=== PATIENT | female | born 1965 | race Caucasian/White ===

== ENCOUNTER 2020-02-06 17:45 | Emergency (ER) | payer MEDICARE, MEDICAID, SELFPAY ==
--- NOTE | ~2020-02-06 | XR_ITS ---
XR lumbar spine 2-3V 02/06/2020 18:20 Indication: Low back pain Procedure: 3 views lumbar spine Comparison: No prior studies for comparison. Findings: There is posterior spinal fusion at L4-5 with prosthetic disc devices at L4-5 and L5-S1. Th ere is anterior spinal fusion at L5-S1. Vertebral body heights are maintained. There are cholecystect lopez clips. Pedicles are otherwise intact. Sacral foramen are symmetric. Impression: 1: Surgical fusion of L4-S1. No acute abnormality of the lumbar spine. Reviewed, dictated and finalized at location A. Impression: 1: Surgical fusion of L4-S1. No acute abnormality of the lumbar spine.
[2020-02-06 17:54] VITALS: BP 149/92; PULSE 81; RESP 20; TEMP 36.9; O2SAT 97
--- NOTE | 2020-02-06 17:55 | ED.BACK ---
HPI - Back Pain/Injury General Chief Complaint: Back Pain/Injury Stated Complaint: back and hip pain from fall Time Seen by Provider: 02/06/20 17:55 Source: patient and RN notes reviewed History of Present Illness HPI Narrative: Patient is a 54-year-old female who presents the urgent care with acute on chronic back pain. Patient had back surgery in August due to compression fractures at [facility] by Dr. Duffy. Patient states that whenever she has the acute on chronic back pain from a recent falls, he does x-rays in the office . Patient came to the facility today, legitimately begging for a Toradol shot. Patient states that she has limited NSAIDs at home and wants to save them until her refill is up on 13 February. Patient has not followed up with her surgeon regarding the recent tripping incidents. Patient states that she is tripped over her own feet and fell twice within the last week. Patient is ambulating without difficulty. No other acute complaints. Patient is tearful. Patient read the plan of care. Related Data Home Medications Medication Instructions Recorded Confirmed atenolol 50 mg PO DAILY 02/06/20 02/06/20 atorvastatin 20 mg PO DAILY 02/06/20 02/06/20 carbamazepine 200 mg PO DIRECTED 02/06/20 02/06/20 citalopram 20 mg PO DAILY 02/06/20 02/06/20 clonazepam 1 mg PO DIRECTED 02/06/20 02/06/20 desvenlafaxine succinate 50 mg PO DAILY 02/06/20 02/06/20 furosemide 20 mg PO DAILY 02/06/20 02/06/20 levothyroxine 175 mcg PO DAILY 02/06/20 02/06/20 lisinopril 20 mg PO DAILY 02/06/20 02/06/20 losartan 100 mg PO DAILY 02/06/20 02/06/20 naproxen 500 mg PO DAILY 02/06/20 02/06/20 prazosin 1 mg PO DAILY 02/06/20 02/06/20 suvorexant [Belsomra] 10 mg PO DIRECTED 02/06/20 02/06/20 Allergies Allergy/AdvReac Type Severity Reaction Status Date / Time meperidine Allergy Intermediate RASH Verified 03/23/18 19:59 acetaminophen Allergy Mild Verified 09/04/09 18:35 morphine Allergy Mild Verified 09/03/09 21:48 Penicillins Allergy Mild Verified 09/03/09 21:48 propoxyphene Allergy Mild Verified 09/04/09 18:35 Sulfa (Sulfonamide Allergy Mild Verified 09/03/09 21:48 Antibiotics) sulfamethoxazole Allergy Mild Verified 09/03/09 21:48 tetracycline Allergy Mild Verified 09/03/09 21:48 trimethoprim Allergy Mild Verified 09/03/09 21:48 Review of Systems Review of Systems: Narrative: CONSTITUTIONAL: Denies fever, chills, or sweats. EYES: Denies visual changes, redness, or discharge. ENT: Denies rhinorrhea, congestion, sore throat, or otalgia. CARDIOVASCULAR: Denies chest pain, palpitations, or edema. RESPIRATORY: Denies cough or dyspnea. GASTROINTESTINAL: Denies abdominal pain, nausea, vomiting, or diarrhea. GENITOURINARY: Denies dysuria or hematuria. SKIN: Denies rash or itching. MUSCULOSKELETAL: Reports of acute on chronic low back pain NEUROLOGIC: Denies headache, numbness, or weakness. All other systems reviewed are negative, except as documented in HPI. PMFSH Comments At the time of my signature, I reviewed and agree with the nursing past medical, surgical, social, and family history. There is no relevant family history pertinent to the patient complaint. Exam Narrative: Exam Narrative: GENERAL: This is a well-nourished, well-developed patient, in no apparent distress. HEAD: normocephalic, atraumatic. EYES: PERRL. Sclera clear/white. Vision is grossly intact. EARS: External ears normal NOSE: External nose normal with no obvious nasal discharge, nares without redness, no rhinorrhea. THROAT: Mucous membranes moist NECK: Neck supple SKIN: warm, intact with no suspicious lesions or rash, good texture and turgor. NEURO: awake, alert, and oriented to person, place and time. There were no obvious focal neurologic abnormalities. EXTREMITIES: No clubbing, cyanosis, or edema. BACK: Moderate diffuse lumbar tenderness extending into bilateral hips, worse than on the right. SLE not tested due to pain. Course Vit
[2020-02-06] MEDS: KETOROLAC (*BKC) 60 MG/2 ML VIAL 30 MG IM (18:35)
== END 2020-02-06 18:52 | disposition home or self-care (01) ==
PROVIDERS: Emergency Provider Nurse Practitioner Family; PCP Physician Assistant
DX: M54.5 Low back pain (principal); G89.29 Other chronic pain; Z86.73 Personal history of transient ischemic attack (TIA), and cerebral infarction without residual deficits; M19.90 Unspecified osteoarthritis, unspecified site
CPT/HCPCS: 72100; 96372; 99213; G0463; J1885

== ENCOUNTER 2021-05-30 15:41 | Emergency (ER) | payer OTHER, SELFPAY ==
--- NOTE | ~2021-05-30 | XR_ITS ---
EXAMINATION: XR chest 2V EXAM DATE: 05/30/2021 16:37 INDICATION: Cough for 2 weeks. TECHNIQUE: Frontal and lateral projections of the chest obtained and reviewed. Comparison is made to prior examination from 03/23/2018. FINDINGS: Previously seen right upper lobe airspace disease has resolved. Some scattered right lung granulomata. No confluent consolidation, pneumothorax or pleural effusion suspected. Cardiomediastina l silhouette is normal. There are cholecystectomy clips. There are no osseous abnormalities identifie d. IMPRESSION: No acute cardiopulmonary findings. Reviewed, dictated and finalized at location B. ESTATE UTILIZATION OFFICER
[2021-05-30 16:02] VITALS: BP 122/64; PULSE 88; RESP 22; TEMP 36.7; O2SAT 97
--- NOTE | 2021-05-30 16:31 | ED.URI ---
HPI - URI/Sore Throat General Chief Complaint: Upper Respiratory Infection Stated Complaint: Flu, R side near ribs hurt, cough. Time Seen by Provider: 05/30/21 16:17 Source: patient and RN notes reviewed Mode of arrival: ambulatory Limitations: no limitations History of Present Illness HPI Narrative: Patient presents today complaining of an almost 2-week history of nonproductive cough with sore throat and mild shortness of breath. Denies congestion, rhinorrhea, fever. She has been vaccinated against COVID-19. History of COPD. She has been taking Tylenol Cold and flu, Robitussin-DM, Mucinex lozenges without much relief. MD elicited complaint: cough and sore throat Related Data Home Medications Medication Instructions Recorded Confirmed atenolol 50 mg PO DAILY 02/06/20 05/30/21 carbamazepine 200 mg PO DIRECTED 02/06/20 05/30/21 citalopram 20 mg PO DAILY 02/06/20 05/30/21 clonazepam 1 mg PO DIRECTED 02/06/20 05/30/21 desvenlafaxine succinate 50 mg PO DAILY 02/06/20 05/30/21 furosemide 20 mg PO DAILY 02/06/20 05/30/21 levothyroxine 175 mcg PO DAILY 02/06/20 05/30/21 lisinopril 20 mg PO DAILY 02/06/20 05/30/21 losartan 100 mg PO DAILY 02/06/20 05/30/21 naproxen 500 mg PO BID 02/06/20 05/30/21 cariprazine [Vraylar] 1 mg PO DAILY 05/30/21 05/30/21 hydrocodone-acetaminophen See Rx Instructions .ROUTE 05/30/21 05/30/21 .COMPLEX PRN Allergies Allergy/AdvReac Type Severity Reaction Status Date / Time aspirin Allergy Unknown Verified 05/30/21 16:25 meperidine [From Demerol] Allergy Unknown Verified 05/30/21 16:21 morphine Allergy Unknown Verified 05/30/21 16:22 Penicillins Allergy Unknown Verified 05/30/21 16:22 propoxyphene Allergy Unknown Verified 05/30/21 16:24 Sulfa (Sulfonamide Allergy Unknown Verified 05/30/21 16:23 Antibiotics) sulfamethoxazole Allergy Unknown Verified 05/30/21 16:25 [From Septra] Tetracyclines Allergy Unknown Verified 05/30/21 16:23 trimethoprim [From Marra] Allergy Unknown Verified 05/30/21 16:25 Review of Systems Review of Systems: CONSTITUTIONAL: Denies body aches, fever, chills, or sweats. EYES: Denies visual changes, redness, or discharge. ENT: Denies rhinorrhea, congestion, or otalgia.+ Sore throat CARDIOVASCULAR: Denies chest pain, palpitations, or edema. RESPIRATORY: + Sore throat, shortness of breath GASTROINTESTINAL: Denies abdominal pain, nausea, vomiting, or diarrhea. GENITOURINARY: Denies dysuria or hematuria. SKIN: Denies rash, itching, or wounds. MUSCULOSKELETAL: Denies back pain, joint pain, or myalgia. NEUROLOGIC: Denies headache, numbness, tingling, or weakness. PSYCH: Denies depression or anxiety. [facility] Past Medical History Medical History (Updated 05/30/21 @ 17:04 by Archana De Leon, CLAY STAIN MIXER, ) Anxiety Bipolar disorder Brain tumor COPD (chronic obstructive pulmonary disease) Depression High cholesterol History of breast cancer Hypertension Seizures Tachycardia Surgical History Surgical History (Updated 05/30/21 @ 16:34 by Archana De Leon, CLAY STAIN MIXER, ) Previous back surgery Comments At time of signature, I have reviewed and agree with nursing past medical, surgical, social and family history unless otherwise noted. Please see nursing chart for further information. There is no relevant family history pertinent to the presenting complaint Exam Narrative: GENERAL: chronically ill-appearing, well-nourished, and in no acute distress. HEAD: Normocephalic, atraumatic. EYES: EOMI. No redness or drainage. Conjunctivae normal. ENT: Mucous membranes pink and moist. Nares clear. No rhinorrhea. TMs normal bilaterally. Throat normal. Uvula midline. NECK: Normal AROM. Supple. No lymphadenopathy. CHEST: No respiratory distress. End inspiratory wheeze throughout. HEART: Regular rate and rhythm. No murmur appreciated. Normal peripheral pulses. EXTREMITIES: Normal range of motion. No edema. SKIN: Warm, dry, no rash. Capillary refill normal. Norm
== END 2021-05-30 17:10 | disposition home or self-care (01) ==
PROVIDERS: Emergency Provider Nurse Practitioner; PCP Physician Assistant
DX: J44.1 Chronic obstructive pulmonary disease with (acute) exacerbation (principal); E78.00 Pure hypercholesterolemia, unspecified; I10 Essential (primary) hypertension; Z85.3 Personal history of malignant neoplasm of breast; F41.9 Anxiety disorder, unspecified; F32.A Depression, unspecified; G40.909 Epilepsy, unspecified, not intractable, without status epilepticus
CPT/HCPCS: 71046; 99213; G0463

== ENCOUNTER 2024-09-19 11:14 | Emergency (ER) | payer OTHER, SELFPAY ==
[2024-09-19 11:28] VITALS: BP 102/78; PULSE 69; RESP 18; TEMP 36.5; O2SAT 97
--- NOTE | 2024-09-19 11:39 | ED_ITS ---
HPI - Wound/Laceration General Chief Complaint: Burn/Smoke Inhalation Stated Complaint: Left Arm Burn Time Seen by Provider: 09/19/24 11:39 Source: patient, RN notes reviewed and old records reviewed Mode of arrival: ambulatory Limitations: no limitations History of Present Illness HPI narrative: 58 year old female presents to [facility] care with complaints of burn to her left forearm which occurred last night when grease from [place] splattered onto her left forearm. Patient reports that she initially put mustard on it and ten washed it off and then applied cold water and has been using cold compresses. Patient has burn to the top and bottom of her left forearm with skin red and some areas of fluid filled blistering. Patient reports that she has taken some Ibuprofen for her discomfort with minimal decrease in pain. Onset (ago): day(s) (last night) Location: other (left forearm) Place: home Patient tetanus UTD: Yes Treatments prior to arrival: cold therapy and other (cold water, ibuprofen) Related Data Home Medications ?Medication ?Instructions ?Recorded ?Confirmed ?Last Taken ?Type carbamazepine 200 mg tablet 200 mg PO DIRECTED 02/06/20 09/19/24 Unknown History clonazepam 1 mg tablet 1 mg PO DIRECTED 02/06/20 09/19/24 Unknown History desvenlafaxine succinate 50 mg 50 mg PO DAILY 02/06/20 09/19/24 Unknown History tablet,extended release 24 hr furosemide 20 mg tablet 20 mg PO DAILY 02/06/20 09/19/24 Unknown History levothyroxine 175 mcg tablet 175 mcg PO DAILY 02/06/20 09/19/24 Unknown History lisinopril 20 mg tablet 20 mg PO DAILY 02/06/20 09/19/24 Unknown History losartan 100 mg tablet 100 mg PO DAILY 02/06/20 09/19/24 Unknown History naproxen 500 mg tablet 500 mg PO BID 02/06/20 05/30/21 Unknown History hydrocodone 10 mg-acetaminophen See Rx Instructions .Route 05/30/21 09/19/24 Unknown History 325 mg tablet .COMPLEX PRN Pain albuterol sulfate 90 mcg/actuation inhalation 09/19/24 Unknown History aerosol inhaler amlodipine 5 mg tablet mg 09/19/24 Unknown History atorvastatin 40 mg tablet mg 09/19/24 Unknown History carisoprodol 350 mg tablet mg 09/19/24 Unknown History dicyclomine 10 mg capsule mg 09/19/24 Unknown History fluticasone fur. 100 mcg-umeclid inhalation 09/19/24 Unknown History 62.5 mcg-vilant 25 mcg inhalat.powder (Trelegy Ellipta) ibuprofen 800 mg tablet mg 09/19/24 Unknown History mirtazapine 15 mg tablet mg 09/19/24 Unknown History ondansetron HCl 8 mg tablet mg 09/19/24 Unknown History propranolol 20 mg tablet mg 09/19/24 Unknown History Allergies Allergy/AdvReac Type Severity Reaction Status Date / Time aspirin Allergy Intermediate bleeding Verified 09/19/24 12:04 meperidine (From Demerol) Allergy Unknown Verified 09/19/24 11:42 morphine Allergy Unknown Verified 09/19/24 11:42 Penicillins Allergy Unknown Verified 09/19/24 11:42 propoxyphene Allergy Unknown Verified 09/19/24 11:42 Sulfa (Sulfonamide Allergy Unknown Verified 09/19/24 11:42 Antibiotics) sulfamethoxazole (From Allergy Unknown Verified 09/19/24 11:42 Septra) Tetracyclines Allergy Unknown Verified 09/19/24 11:42 trimethoprim (From Septra) Allergy Unknown Verified 09/19/24 11:42 Review of Systems Review of Systems: CONSTITUTIONAL: Denies fever, chills, or sweats. EYES: Denies visual changes, redness, or discharge. ENT: Denies rhinorrhea, congestion, sore throat, or otalgia. CARDIOVASCULAR: Denies chest pain, palpitations, or edema. RESPIRATORY: Denies cough or dyspnea. GASTROINTESTINAL: Denies abdominal pain, nausea, vomiting, or diarrhea. GENITOURINARY: Denies dysuria or hematuria. SKIN: Positive for 2nd degree reyes to left forearm which occurred last night from splattering of [place] grease. MUSCULOSKELETAL: Denies back pain, joint pain, or myalgia. NEUROLOGIC: Denies headache, numbness, or weakness. PSYCHIATRIC: Reports history of anxiety or depression. All systems reviewed & are unremarkable except as noted in HPI and below PMFSH Past Medical History Medical History (Updated 09/21/24 @ 08:03 by Patricia Bella NP) History of breast cancer Tachycardia Depression Anxiety High cholesterol Brain tumor Seizures Bipolar disorder Hypertension COPD (chronic obstructive pulmonary disease) Surgical History Surgical History (Updated 09/21/24 @ 07:53 by Patricia Bella NP) H/O brain surgery remove tumor Previous back surgery Social History Social History (Updated 09/20/24 @ 23:09 by Patricia Bella NP) Smoking status: Current every day smoker Tobacco type: cigarettes Living arrangements: with family Gender identity (if verbalized by the patient): Female Comments At time of signature, agree with nursing past medical, surgical, social and family history. There is no relevant family history pertinent to the presenting complaint Exam Narrative: GENERAL: Well-appearing, well-nourished, and in some acute distress related to pain. HEAD: Normocephalic, atraumatic. EYES: PERRLA and EOMI. ENT: Nares clear, no rhinorrhea or epistaxis. Mucous membranes moist.TM's normal with good light reflex, throat pink with no swelling NECK: Supple. no lymphadenopathy CHEST: Clear to auscultation. No respiratory distress.SAO2 97% on room air HEART: Regular rate and rhythm. No murmur heard. Normal peripheral pulses. ABDOMEN: Soft, nontender, nondistended, normal active bowel sounds. EXTREMITIES: Normal range of motion. No edema. SKIN: Warm, dry, burn to top of forearm area measuring 2cm X 10cm red with some areas of fluid and 4cm X 10cm area to inner forearm red with some fluid filled areas. painful no weeping or eschar noted, strong pulses present to left arm. wound cleansed by nursing staff and triple antibiotic ointment Telfa and rolled gauze applied around forearm. Reviewed home care with patient for daily wound c leansing and application of bacitracin ointment, telfa and rolled gauze dressing and follow up with PCP for wound evaluation. NEURO: No focal deficits. Alert and oriented x3. very anxious Course Course Emergency Course: Patient is aware of diagnosis, understands and agrees to treatment plan.? Anticipatory guidance given.? Patient agrees to follow-up as directed and is aware of reasons to seek care at the emergency department. Portions of this record may have been created with voice recognition software Level of Care: Express Care Visit Vital Signs Vital signs: Vital Signs Temperature 36.5 C 09/19/24 11:28 Pulse Rate 69 09/19/24 11:28 Respiratory Rate 18 09/19/24 11:28 Blood Pressure 102/78 09/19/24 11:28 Pulse Oximetry 97 09/19/24 11:28 Oxygen Delivery Room Air 09/19/24 11:28 Temperature 36.5 C 09/19/24 11:28 Pulse Rate 69 09/19/24 11:28 Respiratory Rate 18 09/19/24 11:28 Blood Pressure 102/78 09/19/24 11:28 Pulse Oximetry 97 09/19/24 11:28 Oxygen Delivery Room Air 09/19/24 11:28 Reviewed MDM - Wound/Laceration Differential Diagnosis Differential diagnosis: Likely other (2nd degree reyes to left forearm, pain to burn areas left forearm, wound care and evaluation) Medical Records Attestation: I reviewed the patient's medical records. Critical Care Time Critical Care Time Critical Care Time: No Discharge Plan Discharge Clinical Impression: Burn of forearm, left, second degree Qualifiers: Encounter type: initial encounter Qualified Code(s): T22.212A - Burn of second degree of left forearm, initial encounter Patient Disposition: Home, Self-Care Condition: Stable Instructions: Antibiotic Form, Second-Degree Burn (ED) Additional Instructions: Cleanse left forearm daily with warm soapy water rinse well pat dry apply bacitracin ointment, Telfa, and wrap with gauze watch for increasing infection--redness, swelling, drainage Keflex 500 mg 3 times daily x7 days follow up with PCP in 5-7 days for a wound check recheck if develop fever, chills, increasing symptom Go to the ER if your symptoms become worse of if ANY new symptoms develop Tylenol or ibuprofen for fever pain Hydrocodone (10 tabs) one every 8 hours use sparingly for acute discomfort If your symptoms persist, change or worsen significantly before you can contact your personal physician then please, without delay, go to the emergency department for further evaluation. Follow-up with PCP in 7-10 days or sooner if needed Patient Language: Comoran Prescriptions: New cephalexin 500 mg capsule 500 mg PO Q8H Qty: 21 0RF bacitracin 500 unit/gram ointment 1 applic topical DAILY Qty: 28 1RF Rx Instructions: apply to burn area daily hydrocodone-acetaminophen 7.5-325 mg tablet 1 tablet PO Q8H PRN (Reason: pain) Qty: 10 0RF naloxone [Narcan] 4 mg/actuation spray,non-aerosol 1 spray intranasal Q3M Qty: 1 0RF Rx Instructions: spray 1 dose into ONE nostril; alternate nostrils w each dose until help arrives No Action levothyroxine 175 mcg tablet 175 mcg PO DAILY lisinopril 20 mg tablet 20 mg PO DAILY clonazepam 1 mg tablet 1 mg PO DIRECTED carbamazepine 200 mg tablet 200 mg PO DIRECTED furosemide 20 mg tablet 20 mg PO DAILY losartan 100 mg tablet 100 mg PO DAILY naproxen 500 mg tablet 500 mg PO BID desvenlafaxine succinate 50 mg tablet extended release 24 hr 50 mg PO DAILY hydrocodone-acetaminophen 10-325 mg tablet See Rx Instructions .ROUTE .COMPLEX PRN (Reason: Pain) Rx Instructions: as prescribed albuterol sulfate 2.5 mg /3 mL (0.083 %) solution for nebulization 2.5 mg inhalation Q4-6H PRN (Reason: shortness of breath or wheezing) Qty: 90 0RF carisoprodol 350 mg tablet atorvastatin 40 mg tablet ibuprofen 800 mg tablet ondansetron HCl 8 mg tablet amlodipine 5 mg tablet mirtazapine 15 mg tablet albuterol sulfate 90 mcg/actuation HFA aerosol inhaler INHALATION propranolol 20 mg tablet dicyclomine 10 mg capsule Trelegy Ellipta 100-62.5-25 mcg blister with device INHALATION Follow-up/Referrals: Jose D,MD Stephen [Primary Care Provider] - Time of Disposition: 12:27 Quality Yenni Coma Scale Eyes: Open Verbal: Oriented and Alert Motor: Follows Commands Eynni Coma Total Score: 15
--- OUTSIDE RECORDS SUMMARY | 2024-09-19 13:01 | XMS_ITS | Encounter Summary ---
Author Organization [facility] Healthcare Address [address] [place] [address] Care Team Providers Care Staking Engineer Name Role Phone Dmitry Duffy MD Unavailable [phone] Stephen Jeffery MD Primary Care Provider [phone] Tati Child MD Unavailable [phone] Reason for Visit * Auth/Cert (Routine) Specialty Diagnoses / Procedures Referred By Contac t Referred To Contact Diagnoses Personal history of colonic polyps Encounter for screening colonoscopy Personal history of colonic polyps [Z86.010] Encounter for screening colonoscopy [Z12.11] Procedures LA COLONOSCOPY FLX DX W/COLLJ SPEC WHEN PFRMD COLONOSCOPY Referral ID Status Reason Start Date Expiration Date Visits Re quested Visits Authorized [id number] 1 1 Encounter Details Date Type Department Care Team (Late st Contact Info) Description 07/26/2024 Hospital Encounter [facility] [address] [place] [address] Flakita Downs MD [address] [place] [address] [address] Social History Tobacco Use Types Packs/Day Years Used Date Smoking Tobacco: Every Day Cigarettes Smokeless Tobacco: Never Alcohol Use Standard Drinks/Week Comments No 0 (1 standard drink = 0.6 oz pur e alcohol) Humiliation, Afraid, Rape, and Kick questionnair e Answer Date Recorded Within the last year, have y ou been afraid of your partner or ex-partner? No 02/19/2023 Within the last year, have y ou been humiliated or emotionally abused in other ways by your partner or ex-partner? No Within the last year, have y ou been kicked, hit, slapped, or otherwise physically hurt by your partner or ex-partner? No 02/19/2023 Within the last year, have y ou been raped or forced to have any kind of sexual activity by your partner or ex-partner? No 02/19/2023 Social Connection and Isolat ion Panel [NHANES] Answer Date Recorded In a typical week, how many times do you talk on the phone with family, friends, or neighbors? More than three times a week 02/19/2023 How often do you get togethe r with friends or relatives? More than three times a week 02/19/2023 How often do you attend chur or lutheran services? Never 02/19/2023 Do you belong to any clubs o r organizations such as amish groups, unions, fraternal or athletic groups, or school groups? No 02/19/2023 How often do you attend meet ings of the clubs or organizations you belong to? Never 02/19/2023 Are you , , di vorced, , never , or living with a partner? 02/19/2023 AUDIT-C Answer Date Recorded Q1: How often do you have a drink containing alcohol? Never 02/19/2023 Q2: How many drinks containi ng alcohol do you have on a typical day when you are drinking? Patient does not drink Q3: How often do you have si x or more drinks on one occasion? Never 02/19/2023 Overall Financial Resource Strain (CARDIA) Answe r Date Recorded How hard is it for you to pa y for the very basics like food, housing, medical care, and heating? Somewhat hard 02/19/2023 PHQ-2 Answer Date Recorded PHQ-2 Total Score (If total score is 3 or more points, staff should administer the PHQ-9) 0 10/13/2023 [facility] - Occupational Stress Questionnaire Answer Date Recorded Do you feel stress - tense, restless, nervous, or anxious, or unable to sleep at night because your mind is troubled all the time - these days? Rather much 02/19/2023 Exercise Vital Sign Answer Date Recorde d On average, how many days pe r week do you engage in moderate to strenuous exercise (like a brisk walk)? 7 days 02/19/2023 On average, how many minutes do you engage in exercise at this level? 90 min 02/19/2023 Hunger Vital Sign Answer Date Recorded Within the past 12 months, y ou worried that your food would run out before you got the money to buy more. Never true 02/20/20 23 Within the past 12 months, t he food you bought just didn't last and you didn't have money to get more. Never true 02/19/2023 PRAPARE - Transportation Answer Date Re corded In the past 12 months, has l ack of transportation kept you from medical appointments or from getting medications? No 02/09 In the past 12 months, has l ack of transportation kept you from meetings, work, or from getting things needed for daily living? No 02/19/2023 Housing Stability Vital Sign Answer Ernie e Recorded In the last 12 months, was t here a time when you were not able to pay the mortgage or rent on time? No 02/19/2023 In the last 12 months, how many places have you lived? 1 02/19/2023 In the last 12 months, was t here a time when you did not have a steady place to sleep or slept in a group home (including now)? No 02/19/2023 Personal Safety Answer Date Recorded Have you ever been in or are you currently in a harmful physical or emotional relationship or is someone making you feel afraid or unsafe? Denies 11/20/2023 Comments No Sex and Gender Information Value Date Recorded Sex Assigned at Not on file Legal Sex Female 7:07 AM FOOT ROENTGENOLOGIST Gender Identity Female 07/02/2020 2:31 PM FOOT ROENTGENOLOGIST Sexual Orientation Not on file documented as of this encounter Plan of Treatment Not on file documented as of this encounter Goals Goal Patient Goal Type Associated Problems Recent Progress Patient-Stated? Author [facility] On track( 021 1:17 PM FOOT ROENTGENOLOGIST) No Tracy Roblero, RN Note: Patient will establish a comfort-function goal and identify the pain level that will allow the patient to perform desired activities and achieve an acceptable quality of life. documented as of this encounter Visit Diagnoses Diagnosis Personal history of colonic polyps Encounter for screening colonoscopy documented in this encounter Admitting Diagnoses Diagnosis Personal history of colonic polyps Encounter for screening colonoscopy documented in this encounter Care Teams Staking Engineer Relationship Specialty Start Date End Date Stephen Jeffery MD [address] [place] [address] PCP - General Family Medicine 02/19/23 [place] [id number] [address] Surgeon Orthopedic Surgery 08/30/19 Tati Child MD [address] [place] [address] DR JACOBSON [address] [place] [id number] Consulting Physician Obstetrics and Gynecology 09/12/24 documented as of this encounter
--- OUTSIDE RECORDS SUMMARY | 2024-09-19 13:01 | XMS_ITS | Patient Health Summary ---
Author Organization [facility] Address [address] [place] [address] Care Team Providers Care Sheriffs Officer Name Role Phone Wallace Lawson Primary Care Provider [phone] Note from [facility],non-owned Affiliates and Associated Physician Practices is amultiple site organization consisting of ambulatory clinics and hospital sitesin [place], [place], [place] and [place]. This disclosure is being madepursuant to the Care Everywhere program and may not contain all information available regarding this patient. Last updated 18.[employer] [facility] Medications Be aware that medications may not be up to date on this document. Always verify current medications with the patient. No known medications Active Problems No known active problems Social History Tobacco Use Types Packs/Day Years Used Date Smoking Tobacco: Never Assessed Sex and Gender Information Value Date Recorded Sex Assigned at Not on file Gender Identity Not on file Sexual Orientation Not on file Last Filed Vital Signs Vital Sign Reading Time Taken Comments Blood Pressure - - Pulse - - Temperature - - Respiratory Rate - - Oxygen Saturation - - Inhaled Oxygen Concentration - - Weight 127 kg (280 lb) 09/18/2022 2:35 PM INFORMATION SYSTEMS SECURITY DEVELOPER Height 166.4 cm (5' 5.5 ) 09/18/2022 2:35 PM INFORMATION SYSTEMS SECURITY DEVELOPER Body Mass Index 45.89 09/18/2022 2:35 PM INFORMATION SYSTEMS SECURITY DEVELOPER Procedures * XR LUMBAR SP FLEX EXT 2 OR 3VW(Performed 09/18/2022) Performed for Back pain, unspecified back location, unspecified back pain laterality, unspecified chronicity Results * XR LUMBAR SP FLEX EXT 2 OR 3VW (09/18/2022 2:09 PM INFORMATION SYSTEMS SECURITY DEVELOPER) Anatomical Region Laterality Modality Spine Radiographic Jessica ging 09/18/2022 2:19 PM INFORMATION SYSTEMS SECURITY DEVELOPER Impressions 09/18/2022 2:41 PM INFORMATION SYSTEMS SECURITY DEVELOPER IMPRESSION: Instrumented spinal fusion. Report dictated by Mamadou Pitts MD, PhD (co founder and president). I, Tim De Souza MD have personally reviewed and interpreted this examination/study. > Interpreting Provider: Tim De Souza MD on 09/18/2022 2:41 PM Narrative 09/18/2022 2:41 PM INFORMATION SYSTEMS SECURITY DEVELOPER PROCEDURE: XR LUMBAR SP FLEX EXT 2 OR 3VW, DATE/TIME OF EXAM: 09/18/2022 2:09 PM, LOCATION [facility] INDICATION: M54.9: Back pain, unspecified back location, unspecified back pain laterality, unspecified chronicity ADDITIONAL CLINICAL INFORMATION: Ordering Provider Reason For Exam: back pain COMPARISON: None. FINDINGS: Instrumented spinal fusion is demonstrated including posterior rods, screws, and an interbody device at L4-5 and an anterior plate, screws, and interbody device at L5-S1. The L5 screws associated with the anterior plate are broken. Radiodense material is seen at the anterior aspect of the L4-5 disc space which may represent calcification, an ossific fragment, or cement. There is no subluxation with flexion or extension. Clips are seen in the abdomen. Procedure Note Tim De Souza MD - 09/18/2022 PROCEDURE: XR LUMBAR SP FLEX EXT 2 OR 3VW, DATE/TIME OF EXAM:09/18/2022 2:09 PM, LOCATION [facility] INDICATION: M54.9: Back pain, unspecified back location, unspecified back pain laterality, unspecified chronicity ADDITIONAL CLINICAL INFORMATION: Ordering Provider Reason For Exam: back pain COMPARISON: None. FINDINGS: Instrumented spinal fusion is demonstrated including posterior rods, screws, and an interbody device at L4-5 and an anterior plate, screws,and interbody device at L5-S1. The L5 screws associated with the anteriorplate are broken. Radiodense material is seen at the anterior aspect of theL4-5 disc space which may represent calcification, an ossific fragment, or cement. There is no subluxation with flexion or extension. Clips areseen in the abdomen. IMPRESSION: Instrumented spinal fusion. Report dictated by Mamadou Pitts MD, PhD (co founder and president). I, Tim De Souza MD have personally reviewed and interpreted this examination/study. > Interpreting Provider: Tim De Souza MD on 09/18/2022 2:41 PM Jeniffer Mchugh MD DIAGNOSTIC IMAGING ORDERABLES Care Teams Sheriffs Officer Relationship Specialty Start Date End Date Wallace Lawson PA [address] [place] [address] PCP - General 07/06/19
--- OUTSIDE RECORDS SUMMARY | 2024-09-19 13:01 | XMS_ITS | Referral Summary ---
Author Organization [facility] Address [address] [place] [address] Care Team Providers Care Metal Buffer Name Role Phone Dmitry Duffy MD Unavailable [phone] Stephen Jeffery MD Primary Care Provider [phone] Tati Child MD Unavailable [phone] Encounters Date Type Department Care Team Description 09/11/2024 Telephone [facility] [address] [place] [address] Stephen Jeffery MD Forms Request 09/07/2024 4:00 PM POLICE SURGEON Office Visit [address] [place] [address] Tati Child MD 08/02/2024 10:15 AM POLICE SURGEON Office Visit [facility] [address] [address] Stephen Jeffery MD Immunization due (Primary Dx); Nonintractable epilepsy without status epilepticus, unspecified epilepsy type (HCC); Chronic obstructive pulmonary disease, unspecified COPD type (HCC); Anxiety with depression; Primary hypertension 07/26/2024 Hospital Encounter [facility] [address] [place] [address] Flakita Downs MD 07/25/2024 Telephone [facility] Gastroenterology at [address] [place] [address] Danay Nelson MA 07/25/2024 Documentation [facility] G[facility]ology at [place] [address] [facility] [address] [place] [address] Danay Nelson MA 07/19/2024 10:00 AM POLICE SURGEON Ancillary Procedure [place] [facility] [address] [facility] [address] [place] [phone] Cervical mass 07/18/2024 Nurse Triage [facility] [address] [place] [phone] Stephen Jeffery MD 07/06/2024 Telephone [place] [facility] [address] [facility] [address] [place] [phone] Wendie Zhang NP Pelvic U/S from Last 3 Months Allergies Active Allergy Reactions Criticality Noted Date Comments Acetaminophen Angioedema High 11/23/2012 tongue,throat swelling Aspirin Other (See comments),Unknown High 10/10/2016 Nose bleeds Takes excedrin for headaches at home (APAP+ASA+caffeine ) 08/24/19 Ciprofloxacin Itching,Redness Low 11/11/2021 Codeine Other (See comments) Low 02/19/2020 SUBSTERNAL PAIN Hydroxyzine Dizziness Low 02/29/2024 Lurasidone Other (See comments) Low 11/11/2021 Meperidine Mirtazapine Other (See comments) Low 03/08/2024 involuntary body movements, weird dreams, dry mouth, hives and very hungry Morphine Snyder Flavor Unknown 08/24/2019 Oxycodone Stomach upset High 11/23/2012 Stomach/GI Upset Penicillins Anaphylaxis High Propoxyphene Angioedema High 11/23/2012 tongue,throat swelling Propoxyphene N-Acetaminophen Unknown 11/20/2014 Quetiapine Hallucinations,Othe r (See comments) High 01/17/2019 Sleep walk and moves things around in her sleep. And said she also tried to go out a window while asleep. Sulfa (Sulfonamide Antibiotics) Rash Medium 11/23/2012 Rash Sulfamethoxazole Sulfamethoxazole-Trimetho prim Tetracycline Topiramate Dizziness Low 08/24/2019 Trimethoprim Ubrogepant Itching,Nausea & Vomiting Low 05/02/2024 Bupropion Other (See comments) Low 05/02/2024 Pt reports seizures per pharmacist Medications desvenlafaxin e ER 50 mg 24 hr tablet Take 1 tablet (50 mg total) by mouth daily 90 tablet 3 08/11/19 24 Active atorvastatin (LIPITOR) 40 mg tablet TAKE 1 TABLET BY MOUTH EVERY DAY 90 tablet 3 11/08/19 24 Active carBAMazepine (TEGretol) 200 mg tablet Take 2 tablets (400 mg total) by mouth nightly AND 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 BEFORE BREAKFAST 90 tablet 3 04/21/20 24 025 Active dicyclomine (BENTYL) 10 mg capsule TAKE 1 CAPSULE BY MOUTH 3 TIMES A DAY BEFORE MEALS 270 capsule 3 07/18/19 25 Active lisinopriL (PRINIVIL,ZES TRIL) 20 mg tablet Take 1 tablet (20 mg total) by mouth daily 30 tablet 2 07/18/19 25 026 Active propranoloL (INDERAL) 20 mg tablet Take 1 tablet (20 mg total) by mouth 2 (two) times a day 180 tablet 4 07/18/19 25 026 Active ondansetron (ZOFRAN) 8 mg tablet Take 1 tablet (8 mg total) by mouth every 8 (eight) hours as needed for nausea or vomiting 60 tablet 1 08/02/19 25 Active aspirin 81 mg enteric coated tablet Take 1 tablet (81 mg total) by mouth daily Active furosemide (LASIX) 20 mg tablet TAKE 1 TABLET (20 MG TOTAL) BY MOUTH NEEDED (EDEMA) 90 tablet 3 09/12/19 25 026 Active ibuprofen (ADVIL,MOTRIN ) 800 mg tablet Take 1 tablet (800 mg total) by mouth 3 (three) times a day 180 tablet 09/19/19 25 Active clonazePAM (KlonoPIN) 1 mg tablet Take 1 tablet (1 mg total) by mouth 4 (four) times a day 120 tablet 09/23/19 25 Active carisoprodoL (SOMA) 350 mg tablet TAKE 1 TABLET BY MOUTH 3 TIMES A DAY NEEDED FOR MUSCLE SPASMS 90 tablet 10/02/19 25 Active furosemide (LASIX) 20 mg tablet Take 1 tablet (20 mg total) by mouth as needed (edema) 90 tablet 3 07/14/19 24 025 Discontinued clonazePAM (KlonoPIN) 1 mg tablet TAKE 1 TABLET BY MOUTH 4 TIMES A DAY. 120 tablet 07/24/19 25 025 Discontinued carisoprodoL (SOMA) 350 mg tablet Take 1 tablet (350 mg total) by mouth 3 (three) times a day as needed for muscle spasms 90 tablet 08/02/19 25 025 Discontinued ibuprofen (ADVIL,MOTRIN ) 800 mg tablet Take 1 tablet (800 mg total) by mouth 3 (three) times a day 180 tablet 08/02/19 25 025 Discontinued(Re order) clonazePAM (KlonoPIN) 1 mg tablet Take 1 tablet (1 mg total) by mouth 4 (four) times a day 120 tablet 08/23/19 25 025 Discontinued(Re order) carisoprodoL (SOMA) 350 mg tablet TAKE 1 TABLET BY MOUTH 3 TIMES A DAY NEEDED FOR MUSCLE SPASMS. 90 tablet 09/01/19 25 025 Discontinued(Re order) Active Problems Problem Noted Date Diagnosed Date History of CVA (cerebrovascular accident) 2023 Assessment & Plan (05/02/2024 4:15 PM CDT): Not well controlled; patient reports recently was taken to hospital for TIA; can not tolerate antiplatelets due to frequent nosebleeds Continue with tight lipid control; would recommend continued risk modification by reducing cigarette use Assessment & Plan (02/29/2024 12:00 PM CDT): Stable. Intolerance to ASA. Plan: Continue lipitor 40mg qhs Continue Atenolol 50 daily Recommend smoking cessation Grief 02/29/2024 Assessment & Plan (02/29/2024 12:19 PM CDT): 2/2 loss of spouse after prolonged illness. Concern about social isolation and over medicating. Plan: Provided grief support resources. Recommend reestablish with therapist F/u 2 months Personal history of colonic polyps 10/27/2023 Encounter for screening colonoscopy 10/27/2023 Depression, unspecified 08/08/2022 Assessment & Plan (01/25/2024 2:25 PM CDT): Patient has adjustment disorder and acute worsening anxiety and depression secondary to recent passing Passive unexpectedly Patient is appropriately tearful, continues to focus significantly on passing Has multiple stressors including doing with extended family Continue Pristiq 50 mg daily, increase clonazepam to 2 mg t.i.d.; will continue to monitor and adjust dose when able 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 LACIE (acute kidney injury) 08/04/2022 Crohn's disease, unspecified, without complicati ons 08/01/2022 Assessment & Plan (05/02/2024 4:14 PM CDT): Not well controlled; patient reports continued episodes of diarrhea; has been having continuous weight loss; may be secondary to malabsorption given continued diarrhea Would recommend follow up with GI for evaluation to determine if patient would benefit from anti-inflammatory Personal history of malignant neoplasm of breast 08/01/2022 Nicotine dependence, unspecified, uncomplicated 08/01/2022 Facial weakness following cerebral infarction Hemiplga following cerebral infrc affecting left nondom side 08/01/2022 Hypothyroidism, unspecified 08/01/2022 Assessment & Plan (05/02/2024 4:14 PM CDT): Stable, patient has had weight loss; unclear if related to grief, Crohn's flare or possible poorly controlled hypothyroidism; will check TSH today Chronic prescription opiate use 04/10/2022 Full incontinence of feces 04/10/2022 Overview (04/10/2022): Added automatically from request for surgery [id number] Bowel habit changes 04/10/2022 Overview (04/10/2022): Added automatically from request for surgery [id number] Colon cancer screening 04/10/2022 Overview (04/10/2022): Added automatically from request for surgery [id number] Assessment & Plan (10/19/2023 3:23 PM CDT): Recommend colonoscopy for CRC screening Abdominal pain 04/10/2022 Overview (04/10/2022): Added automatically from request for surgery [id number] Weight loss 04/10/2022 Overview (04/10/2022): Added automatically from request for surgery [id number] Assessment & Plan (02/29/2024 12:11 PM CDT): Unintentionally. 2/2 grief. Plan: See A&P for DEE CVA (cerebral vascular accident) 11/12/2021 Assessment & Plan (10/19/2023 3:24 PM CDT): Stable, generally well controlled; no significant residual deficits; no recurrent episodes Continue atorvastatin 40 mg daily; patient can not tolerate aspirin due to allergies Assessment & Plan (08/11/2023 4:54 PM POLICE SURGEON): MRI demonstrates no mass in the brain; chronic white matter disease Continue with risk modification through limiting cholesterol levels, managing blood pressure Continue atorvastatin 40 mg daily Assessment & Plan (11/13/2021 7:17 AM CDT): MRI Brain WO contrast 11/11: IMPRESSION: No evidence of hemorrhage mass effect or midline shift. 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 Lipid panel: Cholesterol 381, HDL 36, triglycerides 654, was unable to calculate LDL due to increased triglyceride 11/12: started Lipitor 40 mg --> pt with a history of massive nose bleed while she was on aspirin, therefore no antiplatelets. Echo 11/12: Normal left ventricular size. Left ventricle not well visualized. Ejection fraction is measured at 58 %. ultrasound of the carotids 11/12: less than 50 percent diameter stenosis of the right ICA and left ICA. Antegrade direction of flow of the bilateral vertebral arteries. Discussed lifestyle modifications ( cessation of smoking and weight loss ) to decrease risk factors of another stroke Continue with PT/OT Pt recommending inpt rehab. Assessment & Plan (11/12/2021 12:14 PM CDT): MRI Brain WO contrast 11/11: IMPRESSION: No evidence of hemorrhage mass effect or midline shift. 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 Lipid panel: Cholesterol 381, HDL 36, triglycerides 654, was unable to calculate LDL due to increased triglyceride Patient started Lipitor 40 mg --> pt with a history of massive nose bleed while she was on aspirin, therefore no antiplatelets. Pending echo results Pending ultrasound of the carotids Discussed lifestyle modifications ( cessation of smoking and weight loss ) to decrease risk factors of another stroke Continue with PT/OT Fall 11/11/2021 Assessment & Plan (11/13/2021 7:18 AM CDT): 56-year-old female who fell at home approximately 1 hour prior to going to the ED. and paramedics noted a slightly slurred speech . patient was in a recliner and tried to get up and fell, and apparently was not able to get back up on her own. She states that she fell weak in her lower extremities and that is what led to the fall. Denies any LOC. CT head WO contrast 11/10: No acute intracranial process Neurology consulted MRI of the brain: acute infarction in the medial left temporal lobe -> PT OT evaluation -> patient placed on fall precautions/seizure precautions Assessment & Plan (11/12/2021 12:15 PM CDT): 56-year-old female who fell at home approximately 1 hour prior to going to the ED. and paramedics noted a slightly slurred speech . patient was in a recliner and tried to get up and fell, and apparently was not able to get back up on her own. She states that she fell weak in her lower extremities and that is what led to the fall. Denies any LOC. CT head WO contrast 11/10: No acute intracranial process Neurology consulted MRI of the brain: acute infarction in the medial left temporal lobe -> PT OT evaluation -> patient placed on fall precautions/seizure precautions Assessment & Plan (11/11/2021 9:54 AM CDT): 56-year-old female who fell at home approximately 1 hour prior to going to the ED. and paramedics noted a slightly slurred speech . patient was in a recliner and tried to get up and fell, and apparently was not able to get back up on her own. She states that she fell weak in her lower extremities and that is what led to the fall. Denies any LOC. CT head WO contrast 11/10: No acute intracranial process Neurology consulted Pending EEG and MRI of brain -> PT OT evaluation -> patient placed on fall precautions/seizure precautions Urinary retention 11/11/2021 Assessment & Plan (11/13/2021 7:25 AM CDT): 11/11: Patient complaining of urinary retention. Patient states that she was trying to strain was unsuccessful in could not urinate. Bladder scan showed 350 ml of urine. Patient was straight cath --> some of the medication that might contribute to urinary retention: Oxycodone has been placed on hold 11/12: urinary retention resolved pt was able to urinate on her own UA suggestive of infection pt started on ceftriaxone pending cultures. Assessment & Plan (11/12/2021 12:20 PM CDT): 11/11: Patient complaining of urinary retention. Patient states that she was trying to strain was unsuccessful in could not urinate. Bladder scan showed 350 ml of urine. Patient was straight cath --> some of the medication that might contribute to urinary retention: Oxycodone has been placed on hold 11/12: urinary retention resolved pt was able to urinate on her own UA suggestive of infection pt started on ceftriaxone pending cultures. Assessment & Plan (11/11/2021 12:25 PM CDT): Patient complaining of urinary retention. Patient states that she was trying to strain was unsuccessful in could not urinate. Bladder scan showed 350 ml of urine. Patient was straight cath. --> patient states that few years ago she withdrew the same thing and required to straight cath herself daily for about a year. --> some of the medication that might contribute to urinary retention: Oxycodone has been placed on hold --> will continue to monitor with bladder scan, if patient unable to void will put in a Gutiérrez --> the UA that was collected in the ED did reflect for culture Plan for another UA and will send that for culture UTI (urinary tract infection) 11/10/2021 Assessment & Plan (11/13/2021 7:25 AM CDT): UA: Postive nitrites, 1+ leukocyte esterase, +WBC Pending cultures 11/12: started on Macrobid 100 mg b.i.d. Assessment & Plan (11/12/2021 12:24 PM CDT): UA: Postive nitrites, 1+ leukocyte esterase, +WBC Pending cultures Patient started on Macrobid 100 mg b.i.d. Assessment & Plan (11/11/2021 9:47 AM CDT): UA: Postive nitrites, 1+ leukocyte esterase, but didn't qualify for culture. --> pt was started on ciprofloxacin from the ED. 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 Follow-up on response to current medications Patient given home exercises for thoracic back pain Assessment & Plan (07/14/2023 4:54 PM POLICE SURGEON): Not well controlled; continues have significant low back pain, also reports mid and neck pain Patient has been engage with pain therapy; limited relief with injections Patient has been engage with physical therapy with limited injections Will refer to pain management for evaluation of other therapeutics including nerve stimulator to help with long-term treatment of pain management Assessment & Plan (03/10/2023 1:08 PM CDT): Not well controlled; patient continues to have significant low back pain; status post to surgery; not interested in any further surgery; patient is not interested in injections at this time Continue desk venlafaxine; work conservative pain Postoperative hypothyroidism 08/25/2019 Assessment & Plan (10/19/2023 3:24 PM CDT): Stable, well controlled, TSH at goal; continue levothyroxine 200 mcg daily Assessment & Plan (03/10/2023 1:10 PM CDT): Stable, well controlled; normal energy levels, no unexplained weight loss or weight gain Continue levothyroxine 200 mcg daily Degenerative lumbar spinal stenosis 08/24/2019 Hyperlipidemia 08/24/2019 Assessment & Plan (05/02/2024 4:14 PM CDT): Not well controlled, LDL above goal; would recommend low-fat high-fiber diet Continue atorvastatin 40 mg daily; may benefit from increased dose Assessment & Plan (02/29/2024 12:11 PM CDT): Chronic. 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 2-3hrs sleep tonight. Plan: Start mirtazapine 15mg qhs F/u 2 mo Chronic bilateral low back pain with left-sided sciatica 08/10/2019 Assessment & Plan (02/29/2024 12:07 PM CDT): Exacerbated today. No trauma. Potentially 2/2 to stress. Plan: Change to ibuprofen 800 mg tid prn Assessment & Plan (10/19/2023 3:23 PM CDT): Not well controlled; continues to have significant low back pain; worsened due to increase caring for , having to lift and move him putting excess strain on her lumbar spine Continue Soma 350 mg t.i.d.; encourage home exercises Assessment & Plan (04/13/2023 10:47 AM CDT): Not well controlled; patient continues to have significant pain; 2 back surgeries in the past, no relief associated with pain New referral placed with pain management. There are conflicting information regarding why patient did not follow up with previous referral request Assessment & Plan (03/10/2023 1:06 PM CDT): Not well controlled; patient continues to have significant pain; 2 back surgeries in the past, no relief associated with pain Continue desk venlafaxine 50 mg daily Lumbar radiculopathy 08/09/2019 Anxiety with depression 10/11/2016 Assessment & Plan (08/02/2024 4:23 PM POLICE SURGEON): Complicated by grief, patient has been engaging with would avoid years which has helped, relief with being in Peer support; continue clonazepam 1 mg 3-4 times per day as needed; trying to reduce to only 3 per day Assessment & Plan (05/02/2024 4:15 PM CDT): Not well controlled; continues to have ups and Downs; significant amounts of grief, recommend patient continue to work with grief organizations to have support since lost Continue clonazepam 1 mg q.i.d. Assessment & Plan (02/29/2024 12:10 PM CDT): Uncontrolled today. 2/2 grief. Endorses occasional self medication. Support system in place. Plan: Recommended against self titration of meds. Continue Klonopin 1 mg QID Continue Desvenlafaxine ER 50mg daily Encouraged to reestablish with psych & therapist ER and return precautions given Assessment & Plan (10/19/2023 3:25 PM CDT): Generally stable current medications, multiple stressors; multiple losses; increased stressors caring for Continue Pristiq 50 mg daily, clonazepam 1 mg q.i.d. Assessment & Plan (08/11/2023 4:54 PM POLICE SURGEON): Not well controlled, has been taking stressors; has been has worsening dementia requiring increased care Continue clonazepam 1 mg q.i.d. Assessment & Plan (07/14/2023 4:55 PM POLICE SURGEON): Not well controlled, worsening; patient is somewhat tearful during appointment Anxiety related to chronic pain and headaches Concerns about long-term health issues and how it may impact her ability to care for Has been has advancing Alzheimer's requiring increased caregiving Has multiple stressors related to caring for family members as well as fights between family members Will continue clonazepam 1 mg q.i.d.; start hydroxyzine p.r.n. for severe anxiety attack Assessment & Plan (03/10/2023 1:10 PM CDT): Not well controlled; patient continues to have significant levels of depression; multiple stressors including chronic pain, loss of children Continue desk venlafaxine 50 mg daily, clonazepam 1 mg q.i.d. COPD (chronic obstructive pulmonary disease) (CM S/HCC) 10/11/2016 Assessment & Plan (08/02/2024 4:23 PM POLICE SURGEON): Stable, well controlled, breathing well; continue Trelegy Ellipta 1 puff daily Assessment & Plan (02/29/2024 12:03 PM CDT): Stable. Sx controlled. Plan: Continue albuterol prn Consider PFT testing and reestablishing with controller medication. (Reports prior possible Trelegy use) Assessment & Plan (03/10/2023 1:09 PM CDT): Stable, generally well controlled, though wheezing noted on physical exam Continue albuterol p.r.n.; will evaluated patient would benefit from controlled medication Assessment & Plan (11/13/2021 7:14 AM CDT): Currently in no exacerbation Continue albuterol as needed Assessment & Plan (11/11/2021 2:20 PM CDT): Currently in no exacerbation Continue albuterol as needed Assessment & Plan (11/11/2021 7:04 AM CDT): Currently in no exacerbation Continue albuterol as needed Cough 10/11/2016 Moderate tobacco use disorder 10/11/2016 Assessment & Plan (02/29/2024 12:01 PM CDT): Chronic. Plan: Recommend smoking cessation Assessment & Plan (03/10/2023 1:08 PM CDT): Not well controlled; continues to smoke and vape regularly; would recommend continued work on tobacco cessation Assessment & Plan (11/13/2021 7:24 AM CDT): Current every day smoker, a pack a day -patient has been educated about the risks of smoking and benefits of stopping. Patient has been advised to quit, and if that fails, to discuss pharmacological options with their PCP. -discussed potential effects of tobacco including lung cancer, COPD, heart disease, and stroke -Nicotine patch daily Assessment & Plan (11/11/2021 2:20 PM CDT): Current every day smoker, a pack a day -patient has been educated about the risks of smoking and benefits of stopping. Patient has been advised to quit, and if that fails, to discuss pharmacological options with their PCP. -discussed potential effects of tobacco including lung cancer, COPD, heart disease, and stroke -Nicotine patch daily Assessment & Plan (11/11/2021 7:16 AM CDT): Current every day smoker, a pack a day -patient has been educated about the risks of smoking and benefits of stopping. Patient has been advised to quit, and if that fails, to discuss pharmacological options with their PCP. -discussed potential effects of tobacco including lung cancer, COPD, heart disease, and stroke -Nicotine patch daily Diarrhea 10/11/2016 Migraine 05/28/2016 Assessment & Plan (08/11/2023 4:53 PM POLICE SURGEON): Not well controlled, continues to have significant headaches; no relief with you Ruperto urine Zyrtec in the past Continue Tegretol 200 mg b.i.d., atenolol 50 mg daily Continue desk venlafaxine 50 mg daily Would recommend referral to neurology if no improvement Assessment & Plan (07/14/2023 4:53 PM POLICE SURGEON): Not well controlled, has been having daily headaches, worse 1st thing in the morning; not responsive to migraine medications Patient has history of intracranial tumor; will repeat imaging to evaluate if patient continues to have growth of tumor, or other causes of intractable headaches Assessment & Plan (04/13/2023 10:45 AM CDT): [facility] and she is having to take additional Tylenol and/or Motrin Patient would like to try Ubrelvy Ubrelvy 50 mg tablets sent to pharmacy Benign neoplasm of brain 08/12/2015 Other headache syndrome 11/20/2014 Assessment & Plan (10/19/2023 3:25 PM CDT): Unclear etiology; continues to have significant headaches; may be medication related headaches as patient reports continued use of Tylenol and ibuprofen Encouraged discontinuation of Tylenol ibuprofen; will give trial of Ubrelvy 100 mg p.r.n. HTN (hypertension) 11/20/2014 Assessment & Plan (08/02/2024 4:24 PM POLICE SURGEON): Stable, well controlled, blood pressure at goal; patient reports no longer having headaches Continue amlodipine 5 mg daily, lisinopril 20 mg daily, propranolol 20 mg b.i.d. Assessment & Plan (05/02/2024 4:16 PM CDT): Not well controlled, blood pressure mildly elevated today; elevated on recheck; likely due to tearfulness and anxiety Continue losartan 100 mg daily, amlodipine 5 mg, atenolol 50 mg daily; will adjust medications if remains elevated Assessment & Plan (02/29/2024 12:13 PM CDT): Mildly uncontrolled today. 2/2 life stress and possible nonadherence. Plan: Continue amlodipine 5mg daily. Adherence encouraged. Recommend smoking cessation Assessment & Plan (10/19/2023 3:23 PM CDT): Stable, well controlled, blood pressure goal; no chest pain or pressure Continue losartan 100 mg daily, amlodipine 5 mg daily Assessment & Plan (08/11/2023 4:53 PM POLICE SURGEON): Not well controlled, blood pressure elevated today; multiple stressors Continue losartan 100 mg daily, furosemide 20 mg p.r.n.; if no improvement, will adjust medications Assessment & Plan (04/13/2023 9:57 AM CDT): BP slightly elevated at 38/86 Continue atenolol 50 mg daily, clonidine 0.1 mg t.i.d.; furosemide 20 mg p.r.n.; losartan 100 mg daily Assessment & Plan (03/10/2023 1:07 PM CDT): BP at goal; patient reports home measurements occasionally elevate to 200s systolic Continue atenolol 50 mg daily, clonidine 0.1 mg t.i.d.; furosemide 20 mg p.r.n.; losartan 100 mg daily Assessment & Plan (11/13/2021 7:24 AM CDT): On admission BP was 186/116. Bp was controlled with hydralazine that was administered in the ED. Pt home medication: atenolol 50 mg, clonidine 0.1mg, lasix 20 mg and losartan 100 mg Continue with atenolol 50mg, clonidine 0.1mg TID, losartan 100mg PRN hydralazine 20mg Over the past 24 hours 129/94-177/79 Assessment & Plan (11/12/2021 12:16 PM CDT): On admission BP was 186/116. Bp was controlled with hydralazine that was administered in the ED. Pt home medication: atenolol 50 mg, clonidine 0.1mg, lasix 20 mg and losartan 100 mg Will continue home medication Assessment & Plan (11/11/2021 7:07 AM CDT): On admission BP was 186/116. Bp was controlled with hydralazine that was administered in the ED. Pt home medication: atenolol 50 mg, clonidine 0.1mg, lasix 20 mg and losartan 100 mg Will continue home medication Obstructive sleep apnea syndrome 03/09/2013 Overview (10/15/2016): Obstructive sleep apnea syndrome Assessment & Plan (10/19/2023 3:22 PM CDT): Stable, well controlled; no major daytime sleepiness Hypersomnia 03/09/2013 Overview (10/15/2016): Hypersomnia Epilepsy 03/09/2013 Overview (10/16/2016): Epilepsy Assessment & Plan (08/02/2024 4:23 PM POLICE SURGEON): Stable, well controlled, no seizures or symptoms Tolerating medication well with no major side effects Assessment & Plan (02/29/2024 12:05 PM CDT): Controlled. Plan: Continue Tegretol 400mg qhs Assessment & Plan (10/19/2023 3:22 PM CDT): Stable, well controlled; no recent seizures Continue carbamazepine 200 mg b.i.d. 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 Assessment & Plan (11/13/2021 7:17 AM CDT): Home medication: Tegretol --> will continue with home medication --> MRI of brain 11/11: No evidence of hemorrhage mass effect or midline shift. 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 -->EEG 11/11: :abnormal EEG because of slightly diffuse slowing. The finding is suggestive of very mild encephalopathy which could be secondary to metabolic, hypoxic or toxic insult and sedative side effect of medications. There was no epileptiform discharge seen in this tracing. The clinical correlation is recommended carbamazepine levels elevated: 13.2 Neurology decreased the carbamazepine dose to 200mg BID Assessment & Plan (11/12/2021 12:15 PM CDT): Home medication: Tegretol --> will continue with home medication --> MRI of brain 11/11: No evidence of hemorrhage mass effect or midline shift. 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 -->EEG 11/11: :abnormal EEG because of slightly diffuse slowing. The finding is suggestive of very mild encephalopathy which could be secondary to metabolic, hypoxic or toxic insult and sedative side effect of medications. There was no epileptiform discharge seen in this tracing. The clinical correlation is recommended carbamazepine levels elevated: 13.2 Neurology on consult appreciate assistance Assessment & Plan (11/11/2021 12:27 PM CDT): Home medication: Tegretol --> will continue with home medication --> pending MRI -->pending EEG Neurology has been consulted pending recommendations --> pending carbamazepine levels Carotid artery disease 01/03/2013 Tachycardia Resolved Problems Problem Noted Date Diagnosed Date Resolved Date Aspirin allergy 02/29/2024 09/07/2024 Dizziness 12/27/2023 05/02/2024 Accidental fall 04/13/2023 09/07/2024 Assessment & Plan (04/13/2023 10:46 AM CDT): Patient states she fell off a 3 rung ladder on March 21. She states that her daughter was rubbing her back and she felt something r oll on the right side of her back and something p opped out . Patient states that he has been hurting ever since Obtain lumbar x-ray at [facility] will follow up with results Acute kidney failure, unspecified 08/08/2022 05/02/2024 Dehydration 08/04/2022 05/02/2024 Pneumonia, unspecified organism 08/01/2022 05/02/2024 Hypertensive encephalopathy 11/10/2021 02/19/2023 Assessment & Plan (11/13/2021 7:24 AM CDT): Pt presented with severely elevated BP ( 186/116) which was controlled with hydralazine. Pt home medication clonidine, atenolol, losartan and lasix --> patient was alert and oriented x4, hypertensive encephalopathy has resolved --> CT of head unremarkable --> neurology has been consulted --> Brain MRI: 5 mm acute infarction in the medial left temporal lobe EEG: abnormal EEG because of slightly diffuse slowing. The finding is suggestive of very mild encephalopathy which could be secondary to metabolic, hypoxic or toxic insult and sedative side effect of medications. Assessment & Plan (11/12/2021 12:18 PM CDT): Pt presented with severely elevated BP ( 186/116) which was controlled with hydralazine. Pt home medication clonidine, atenolol, losartan and lasix have been restarted. --> patient was alert and oriented x4, hypertensive encephalopathy has resolved --> CT of head unremarkable --> neurology has been consulted --> Brain MRI: 5 mm acute infarction in the medial left temporal lobe EEG: abnormal EEG because of slightly diffuse slowing. The finding is suggestive of very mild encephalopathy which could be secondary to metabolic, hypoxic or toxic insult and sedative side effect of medications. Assessment & Plan (11/11/2021 7:19 AM CDT): Pt presented with severely elevated BP ( 186/116) which was controlled with hydralazine. Pt home medication clonidine, atenolol, losartan and lasix have been restarted. --> CT of head unremarkable --> neurology has been consulted --> pending Brain MRI and EEG Acute chest pain 10/11/2016 09/07/2024 Immunizations Immunization Administration Dates Next Due Influenza, Quadrivalent, Spl it, Intramuscular 05/19/2017 Influenza, Trivalent, IM (MDV) 05/22/2015 Influenza, Trivalent, Preser vative Free, Intramuscular 05/02/2024 Influenza, Unspecified 10/13/2023(Deferr ed: Patient Refused),04/11/2023(Deferred: Patient Refused),04/11/2023(Deferred: Patient Refused),03/12/2023(Deferred: Patient Refused),04/26/2022(Deferred: Patient Refused),04/11/2022(Deferred: Patient Refused) Pneumococcal Conjugate Pcv20 05/02/2024 Pneumococcal Polysaccharide PPV23 03/19/2022 Tdap 08/02/2024 ZOSTER Recombinant 03/04/2021 Social History Tobacco Use Types Packs/Day Years Used Date Smoking Tobacco: Every Day Cigarettes Smokeless Tobacco: Never Tobacco Cessation:Ready to Q uit: Not Asked; Counseling Given: Not Answered Alcohol Use Standard Drinks/Week Comments No 0 [...] How often do you attend chur or zoroastrianism services? Never 02/19/2023 Do you belong to any clubs o r organizations such as christian groups, unions, fraternal or athletic groups, or [...] staff should administer the PHQ-9) 0 10/13/2023 [facility] - Occupational Stress [...] place to sleep or slept in a nursing home (including now)? No 02/19/2023 Personal Safety Answer Date Recorded Have you ever been in or are you currently in a harmful physical or emotional relationship or is someone making you feel afraid or unsafe? Denies 11/20/2023 Comments No Sex and Gender Information Value Date Recorded Sex Assigned at Not on file Legal Sex Female 7:07 AM POLICE SURGEON Gender Identity Female 07/02/2020 2:31 PM POLICE SURGEON Sexual Orientation Not on file Last Filed Vital Signs Vital Sign Reading Time Taken Comments Blood Pressure 130/82 09/07/2024 3:57 PM POLICE SURGEON Pulse 75 08/02/2024 10:21 AM POLICE SURGEON Temperature 36.4 C (97.5 F) 08/02/2024 10:21 AM POLICE SURGEON Respiratory Rate 18 08/02/2024 10:21 AM POLICE SURGEON Oxygen Saturation 99% 08/02/2024 10:21 AM POLICE SURGEON Inhaled Oxygen Concentration - - Weight 69.4 kg (153 lb) 09/07/2024 3:57 PM POLICE SURGEON Height 165.1 cm (5' 5 ) 09/07/2024 3:57 PM POLICE SURGEON Body Mass Index 25.46 09/07/2024 3:57 PM POLICE SURGEON Plan of Treatment Not on file Goals Goal Patient Goal Type Associated Problems Recent Progress Patient-Stated? Author [facility] On track( 021 1:17 PM POLICE SURGEON) Tracy Ricardo RN Note: Patient will establish a comfort-function goal and identify the pain level that will allow the patient to perform desired activities and achieve an acceptable quality of life. Medical Devices Implanted Type Area Receiving Associate Device Identifier Shelf Expiration Date Model / Serial / Lot Lifenet [id number]-1500-002 Vivigen Allograft Graft 5 Cc Bone Cortical Cancellous; Deminerali - [id number] - [id number] Implanted:Qty: 1 on 08/28/2019 by Dmitry Duffy MD at [facility] N/A: Spine Lumbar Lifenet 03/22/2020 [id number] / [id number] / Depuy Spine [id number] Concorde [id number] Radiopaque 5d Lordotic Bullet Nose Cage Spinal Latex Free - [id number] Implanted:Qty: 2 on 08/28/2019 by Dmitry Duffy MD at [facility] N/A: Spine Lumbar Depuy Spine [id number] / / Depuy Synthes Spine [id number] Viper Prime 6mm 45mm Polyaxial Extend Tab Spine Screw Bone - [id number] Implanted:Qty: 4 on 08/28/2019 by Dmitry Duffy MD at [facility] N/A: Spine Lumbar Depuy Synthes Spine [id number] / / Depuy Spine [id number] Viper 2 40mm Lordotic Pavan Spinal Titanium Mis - [id number] Implanted:Qty: 2 on 08/28/2019 by Dmitry Duffy MD at [facility] N/A: Spine Lumbar Depuy Spine [id number] / / Depuy Spine [id number] 5.5mm 1 Inner Spine Screw Set Titanium Nonsterile Viper - [id number] Implanted:Qty: 4 on 08/28/2019 by Dmitry Duffy MD at [facility] N/A: Spine Lumbar Depuy Spine [id number] / / Procedures Procedure Name Priority Date/Time Associated Diagnosis Comments US TRANSVAGINAL Routine 07/19/2024 10:57 AM POLICE SURGEON Cervical mass PAP AND HPV, REFLEX TO HPV GENOTYPES Routine 12/27/2023 2:53 PM CDT Well woman exam HEPATITIS C ANTIBODY Routine 05/06/2023 3:07 PM CDT Need for hepatitis C screening test COLONOSCOPY 04/28/2022 11:23 AM CDT from Last 3 Months or Most Recently Relevant to Health Maintenance Results * US Transvaginal (07/19/2024 10:57 AM POLICE SURGEON) Cul de Sac No free fluid visualized VIEWPOINT Endometrial Thickness 2.8 mm&millim eters VIEWPOINT Anatomical Region Laterality Modality Pelvis N/A Ultrasound 07/19/2024 10:3 8 AM POLICE SURGEON Impressions 07/31/2024 2:56 PM POLICE SURGEON 1. There is a normal-sized uterus without evidence of fibroids. 2. The cervical lesion is minimally changed when compared to the prior ultrasound dated 01/1924. The etiology is still uncertain. 3. Both ovaries appear within normal limits. Narrative Procedure Note Tati Child MD - 07/31/2024 IMPRESSION: 1. There is a normal-sized uterus without evidence of fibroids. 2. The cervical lesion is minimally changed when compared to the priorultrasound dated 01/1924. The etiology is still uncertain. 3. Both ovaries appear within normal limits. us Wendie Zhang NP IMGladys US PROCEDURES Final Res ult * Pap and HPV, reflex to HPV Genotypes (12/27/2023 2:53 PM CDT) CLINICAL INFORMATION: [facility] Comment:None given [facility] given Previous Pap [facility] Comment:None given Prev. Bx [facility] Comment:None given SOURCE: [facility] Comment:Cervix, Endocervix Pap, specimen adequacy [facility] Comment: Satisfactory for evaluation. Endocervical/transformation zone component absent. Age and/or menstrual status not provided HPV interp [facility] Comment: Cytology Results: Negative for intraepithelial lesion or malignancy. COMMENTS [facility] Comment: This Pap test has been evaluated with computer assisted technology. Fur Drummer Beto [facility] Comment: CAK, CT(ASCP) CT Screening Location: [place] [address] [place] [address] Comment [facility] Comment: EXPLANATORY NOTE: The Pap is a screening test for cervical cancer. It is not a diagnostic test and is subject to false negative and false positive results. It is most reliable when a satisfactory sample, regularly obtained, is submitted with relevant clinical findings and history, and when the Pap result is evaluated along with historic and current clinical information. Human papillomavirus DNA, High Risk E6/E7 Not Detected NOT DETECTED [facility] Comment: Not Detected High Risk HPV types (16,18,31,33,35,39,45,51,52, 56,58,59,66,68) were not detected. Other HPV types which cause anogenital lesions may be present. The significance of the other types of HPV in malignant processes has not been established. Methodology: Real Time PCR Thin prep 12/27/2023 2:53 PM CDT 12/28/2023 1:30 AM CDT Wendie Zhang STAFF [employer]ONS OFFICER LAB CYTOLOGY ORDERABLES Fin al Result [place] [address] [place] [address] [facility] [address] [place] [address] * Hepatitis C antibody Blood (05/06/2023 3:07 PM CDT) Hep C Ab Nonreactive Nonreactive [facility] Comment: Interpretive Data Nonreactive: Antibodies to HCV not detected. Does NOT exclude the possibility of recent exposure to HCV. Equivocal: Equivocal for HCV antibodies. Supplemental molecular testing will be automatically performed to determine infection status in accordance with current CDC screening recommendations. Reactive: Positive for HCV antibodies. This may represent current or past HCV infection. Supplemental molecular testing will be automatically performed to determine current infection status in accordance with current CDC screening recommendations. Interpretive data was last revised on 2019. Testing performed by: [facility], [address] [place] [address]., [address] Blood 05/06/2023 3:07 PM CDT 05/07/2023 7:45 AM CDT us Henrietta Sinha NP LAB MICROBIOLOGY - GENERAL ORDER SWATHI Final Result [facility] [place] [address] [facility] [place] [address] * COLONOSCOPY (04/28/2022 11:23 AM CDT) Anatomical Region Laterality Modality Other Narrative Procedure Note Flakita Downs MD - 04/28/2022 11:23 AM CDT [facility] Patient Name: Leeann Mejia Procedure Date: 04/28/2022 11:23AM Date of : 1965 Admit Type: Outpatient Age: 56 Gender: Female Attending MD: Flakita Downs M.D. Room: [facility] ENDOSCOPY ROOM 1 Note Status: Finalized Patient Profile: This is a 56 year old female. No previouscolonoscopy. She has chronic constipation. She was brought back pain she is smoker. Procedure: Colonoscopy Indications: This is the patient's first colonoscopy, Chronic diarrhea Referring MD: ABHISHEK Guzmán Providers: Flakita Downs M.D. Impression: - Random colon biopsy performed - Five 6 to 16 mm polyps in the descending colon, removed with a cold snare. Resected and retrieved. Clip (MR conditional) was placed. Clipmanufacturer: [email or web address]. - Eleven 5 to 14 mm polyps in the sigmoid colon, removed with a cold snare. Resected andretrieved. - Internal hemorrhoids. Recommendation: - Repeat colonoscopy in 1 year for screeningpurposes. - Continue present medications. - Follow-up in the GI office as scheduled Medicines: Monitored Anesthesia Care Complications: No immediate complications. Estimated Blood Loss: Estimated blood loss: none. Procedure: Pre-Anesthesia Assessment: - Prior to the procedure, a History and Physicalwas performed, and patient medications and allergieswere reviewed. The patient's tolerance of previous anesthesia was also reviewed. The risks andbenefits of the procedure and the sedation options and risks were discussed with the patient. All questions were answered, and informed consent was obtained. Prior Anticoagulants: The patient has taken noanticoagulant or antiplatelet agents. ASA Grade Assessment: III -A patient with severe systemic disease. Afterreviewing the risks and benefits, the patient was deemed in satisfactory condition to undergo the procedure. - Prior to the procedure, a History and Physicalwas performed, and patient medications and allergieswere reviewed. The patient's tolerance of previous anesthesia was also reviewed. The risks andbenefits of the procedure and the sedation options and risks were discussed with the patient. All questions were answered, and informed consent was obtained. Prior Anticoagulants: The patient has taken noanticoagulant or antiplatelet agents. ASA Grade Assessment: III -A patient with severe systemic disease. Afterreviewing the risks and benefits, the patient was deemed in satisfactory condition to undergo the procedure. The benefits, risks and alternatives of theprocedure and sedation were discussed and informed consentwas obtained. All questions were answered. Please referto the signed informed consent document in the medical record. The bowel preparation used was Miralax and bisacodyl tablets via split dose instruction. The scope was passed under direct vision. The Pediatric Colonoscope PCF-H190L [id number] was introducedthrough the anus and advanced to the the cecum, identifiedby appendiceal orifice and ileocecal valve. Thequality of the bowel preparation was fair. Bowel prep was administered using a split dose. Findings: The perianal and digital rectal examinations were normal. The cecum appeared normal. The transverse colon and ascending colon appeared normal. Biopsiesfor histology were taken with a cold forceps for evaluation ofmicroscopic colitis. Five sessile polyps were found in the descending colon. The polypswere 6 to 16 mm in size. These polyps were removed with a cold snare. Resection and retrieval were complete. The largest polyp was 16-18 mmin size and semi sessile. This polyp was removed by cold snare and the edges were cauterized in place with the tip of the hot snare. Toprevent bleeding after the polypectomy, one hemostatic clip was successfully placed (MR conditional). Clip washhouse hand: [email or web address]. Therewas no bleeding at the end of the procedure. Eleven sessile polyps were found in the sigmoid colon. The polypswere 5 to 14 mm in size. These polyps were removed with a cold snare.Resection and retrieval were complete. Internal hemorrhoids were found during retroflexion. The hemorrhoids were medium-sized. Electronically signed by Flakita Downs M.D. Flakita Downs M.D. 04/28/2022 1:32:57 PM Number of Addenda: 0 Note Initiated On: 04/28/2022 11:23 AM Procedure Code(s): --- Professional --- 03224, Colonoscopy, flexible; with removal of tumor(s), polyp(s), or other lesion(s) by snare technique 32769, 59, Colonoscopy, flexible; with biopsy, single or multiple Diagnosis Code(s): --- Professional --- K64.8, Other hemorrhoids D12.4, Benign neoplasm of descending colon D12.5, Benign neoplasm of sigmoid colon K52.9, Noninfective gastroenteritis and colitis, unspecified CPT copyright 2020 [employer]. All rights reserved. The codes documented in this report are preliminary and upon filter tank operator reviewmay be revised to meet current compliance requirements. Recognized by the [employer] for promoting quality in endoscopy Flakita Downs MD ENDOSCOPY PROCEDURES Final Result from Last 3 Months or Most Recently Relevant to Health Maintenance Insurance MEDICARE [facility] MEDICARE IDPA [employer]ETNA [facility] MEDICARE [facility] MEDICARE [facility] Advance Directives For more information, please contact: [phone] * Full Code (Latest Code Status on File) Date Activated Date Inactivated Comments 04/28/2022 11:27 AM 04/28/2022 5:59 PM * Full Code Date Activated Date Inactivated Comments 04/28/2022 11:27 AM 04/28/2022 11:27 AM * Full Code Date Activated Date Inactivated Comments 11/10/2021 11:30 AM 11/13/2021 6:10 PM * Full Code Date Activated Date Inactivated Comments 08/28/2019 3:42 PM 08/30/2019 10:08 PM * Full Code Date Activated Date Inactivated Comments 08/24/2019 6:23 PM 08/28/2019 3:42 PM Care Teams Metal Buffer Relationship Specialty Start Date End Date Stephen Jeffery MD [address] [place] [address] PCP - General Family Medicine 02/19/23 [place] [id number] [address] Surgeon Orthopedic Surgery 08/30/19 Tati Child MD [address] [place] [address] [address] Consulting Physician Obstetrics and Gynecology 09/12/24
--- OUTSIDE RECORDS SUMMARY | 2024-09-19 13:01 | XMS_ITS | Clinical Summary ---
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 270 tablet 3 01/31/20 24 025 Active albuterol HFA (Ventolin HFA) 90 mcg/actuation inhaler Inhale 1 puff every 6 (six) hours as needed for wheezing 3 each 3 02/15/20 24 025 Active Additional Information Patient not taking.Reported on 09/07/2024 amLODIPine (NORVASC) 5 mg tablet Take 1 tablet (5 mg total) by mouth daily 90 tablet 4 02/29/20 24 025 Active fluticasone-u meclidin-naman nter (Trelegy Ellipta) 100-62.5-25 mcg inhaler Inhale 1 puff daily 90 each 3 02/29/20 24 025 Active levothyroxine (SYNTHROID) 200 mcg tablet TAKE 1 TABLET (200 MCG TOTAL) BY MOUTH IT INFRASTRUCTURE MANAGER BEFORE BREAKFAST 90 tablet 3 04/21/20 24 [...] (04/10/2022): Added automatically from request for surgery [id number] Bowel habit changes 04/10/2022 Overview (04/10/2022): Added automatically from request for surgery [id number] Colon cancer screening 04/10/2022 Overview (04/10/2022): Added automatically from request for surgery [id number] Assessment & Plan (10/19/2023 3:23 PM CDT): Recommend colonoscopy for CRC screening Abdominal pain 04/10/2022 Overview (04/10/2022): Added automatically from request for surgery [id number] Weight loss 04/10/2022 Overview (04/10/2022): Added automatically from request for surgery [id number] Assessment & Plan (02/29/2024 12:11 PM CDT): Unintentionally. 2/2 grief. Plan: See A&P for DEE CVA (cerebral vascular accident) 11/12/2021 Assessment & Plan (10/19/2023 3:24 PM CDT): Stable, generally well controlled; no significant residual deficits; no recurrent episodes Continue atorvastatin 40 mg daily; patient can not tolerate aspirin due to allergies Assessment & Plan (08/11/2023 4:54 PM GRAIN CLEANER): MRI demonstrates no mass in the brain; [...] 02/27/2020 Assessment & Plan (08/11/2023 4:54 PM GRAIN CLEANER): Not well controlled; continues to have pain in thoracic and low back Using ibuprofen 600 mg; no relief with Flexeril; patient does not want to use any narcotic pain medication 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 Follow-up on response to current medications Patient given home exercises for thoracic back pain Assessment & Plan (07/14/2023 4:54 PM GRAIN CLEANER): Not well controlled; continues have significant low [...] 10/11/2016 Assessment & Plan (08/02/2024 4:23 PM GRAIN CLEANER): Complicated by grief, patient has been engaging [...] q.i.d. Assessment & Plan (08/11/2023 4:54 PM GRAIN CLEANER): Not well controlled, has been taking stressors; has been has worsening dementia requiring increased care Continue clonazepam 1 mg q.i.d. Assessment & Plan (07/14/2023 4:55 PM GRAIN CLEANER): Not well controlled, worsening; patient is somewhat [...] 10/11/2016 Assessment & Plan (08/02/2024 4:23 PM GRAIN CLEANER): Stable, well controlled, breathing well; continue Trelegy [...] 05/28/2016 Assessment & Plan (08/11/2023 4:53 PM GRAIN CLEANER): Not well controlled, continues to have significant headaches; no relief with you Ruperto urine Zyrtec in the past Continue Tegretol 200 mg b.i.d., atenolol 50 mg daily Continue desk venlafaxine 50 mg daily Would recommend referral to neurology if no improvement Assessment & Plan (07/14/2023 4:53 PM GRAIN CLEANER): Not well controlled, has been having daily headaches, worse 1st thing in the morning; not responsive to migraine medications Patient has history of intracranial tumor; will repeat imaging to evaluate if patient continues to have growth of tumor, or other causes of intractable headaches Assessment & Plan (04/13/2023 10:45 AM CDT): [facility] [...] 11/20/2014 Assessment & Plan (08/02/2024 4:24 PM GRAIN CLEANER): Stable, well controlled, blood pressure at goal; [...] daily Assessment & Plan (08/11/2023 4:53 PM GRAIN CLEANER): Not well controlled, blood pressure elevated today; [...] Epilepsy Assessment & Plan (08/02/2024 4:23 PM GRAIN CLEANER): Stable, well controlled, no seizures or symptoms [...] hurting ever since Obtain lumbar x-ray at [facility] will follow up with results Acute kidney [...] and EEG Acute chest pain 10/11/2016 09/07/2024 Encounters Date Type Department Care Team Description 09/11/2024 Telephone [facility] [address] [address] Stephen Jeffery MD Forms Request 09/07/2024 4:00 PM GRAIN CLEANER Office Visit [facility] [address] [place] [address] Tati Child MD 08/02/2024 10:15 AM GRAIN CLEANER [facility] Visit [facility] [address] [address] Stephen Jeffery MD Immunization due (Primary Dx); Nonintractable epilepsy without status epilepticus, unspecified epilepsy type (HCC); Chronic obstructive pulmonary disease, unspecified COPD type (HCC); Anxiety with depression; Primary hypertension 07/26/2024 Hospital Encounter [facility] [address] [place] [address] Flakita Downs MD 07/25/2024 Telephone [facility] at [address] [place] [address] Danay Nelson MA 07/25/2024 Documentation [facility] [address] [place] [address] Danay Nelson MA 07/19/2024 10:00 AM GRAIN CLEANER Ancillary Procedure [facility] [address] [place] [address] Cervical mass 07/18/2024 Nurse Triage [facility] [address] [place] [address] Stephen Jeffery MD 07/06/20[facility] [address] [place] [address] Wendie Zhang, CODING AND REIMBURSEMENT SPECIALIST Pelvic U/S from Last 3 Months Immunizations Immunization Administration Dates Next Due Influenza, Quadrivalent, Spl it, Intramuscular 05/19/2017 Influenza, Trivalent, IM (MDV) 05/22/2015 Influenza, Trivalent, Preser vative Free, Intramuscular 05/02/2024 Influenza, Unspecified 10/13/2023(Deferr ed: Patient Refused),04/11/2023(Deferred: Patient Refused),04/11/2023(Deferred: Patient Refused),03/12/2023(Deferred: Patient Refused),04/26/2022(Deferred: Patient Refused),04/11/2022(Deferred: Patient Refused) Pneumococcal Conjugate Pcv20 05/02/2024 Pneumococcal Polysaccharide PPV23 03/19/2022 Tdap 08/02/2024 ZOSTER Recombinant 03/04/2021 Surgical History Surgery Date Site/Laterality Comments OTHER SURGICAL HISTORY Cholecystitis: Cholecystectomy [place] CHOLECYSTECTOMY Cholecystectomy - (Added by TW Conv) GA CAUTERY CERVIX LASER ABLATION Laser Ablation Of Cervix - (Added by TW Conv) SPINAL FUSION Spinal Arthrodesis - (Added by TW Conv) GA EXC CYST/ABERRANT BREAST TISSUE OPEN LESION Breast Surgery Lumpectomy - (Added by TW Conv) BREAST RECONSTRUCTION Breast Reconstruction With Implant Prosthesis - (Added by TW Conv) ABLATION Uterus SECTION CATARACT EXTRACTION Right COLONOSCOPY 04/28/2022 LUMBAR PUNCTURE WO INJECTION , DIAGNOSTIC 07/30/2022 N/A Medical History Medical History Date Comments Seizure disorder (HCC) Seizure d isorder Hypertension Hypertension Malignant neoplasm of thyroid gland (HCC) Cancer, thyroid Chronic obstructive pulmonary disease (HCC) COPD Tension headache Headache, tensi on Disorder of thyroid Thyroid dise ase Hx Other Medical Headache, migra ine Primary fibromyalgia syndrome Fi bromyalgia Hx Other Medical 2010 Lumbar fusion Hyperlipidemia Hyperlipidemia Depression Depression Asthma Asthma Tachycardia Low back pain Colon polyp Family History Medical History Relation Name Comments Cancer Brother 1 Cancer, unknown ; Diabetes Brother 2 Diabetes mellit us; Hypertension Brother 3 Hypertension; Migraines Brother 4 Migraine; Other Brother 5 neurological di sease; Stroke Brother 6 Stroke; ALS Father Other Father UNKNOWN; Murder Mother Other Mother UNKNOWN; COPD Other 1 Family history of COPD; Heart disease Other 2 Family history of Heart disease; Relation Name Status Comments Brother 1 Brother 2 Brother 3 Brother 4 Brother 5 Brother 6 Father Mother Other 1 Other 2 Social History Tobacco Use Types Packs/Day Years [...] 02/19/2023 How often do you attend chur ch or anglican services? Never 02/19/2023 Do you belong to any clubs o r organizations such as denominational groups, unions, fraternal or athletic groups, or [...] staff should administer the PHQ-9) 0 10/13/2023 [facility] - [...] place to sleep or slept in a fpc (including now)? No 02/19/2023 Personal Safety Answer Date Recorded Have you ever been in or are you currently in a harmful physical or emotional relationship or is someone making you feel afraid or unsafe? Denies 11/20/2023 Comments No Sex and Gender Information Value Date Recorded Sex Assigned at Not on file Legal Sex Female 7:07 AM GRAIN CLEANER Gender Identity Female 07/02/2020 2:31 PM GRAIN CLEANER Sexual Orientation Not on file Obstetrics History Para Term AB IAB SAB Ectopic Multiple Livin g Live Births 7 3 4 Date Outcome GA Total Labor Labor/2nd/3rd Weight Sex Type Anes PTL Nicol A1 A5 Name Clin Para C-Secti on Para C-Secti on Para C-Secti on AB AB AB AB Last Filed Vital Signs Vital Sign Reading Time Taken Comments Blood Pressure 130/82 09/07/2024 3:57 PM GRAIN CLEANER Pulse 75 08/02/2024 10:21 AM GRAIN CLEANER Temperature 36.4 C (97.5 F) 08/02/2024 10:21 AM GRAIN CLEANER Respiratory Rate 18 08/02/2024 10:21 AM GRAIN CLEANER Oxygen Saturation 99% 08/02/2024 10:21 AM GRAIN CLEANER Inhaled Oxygen Concentration - - Weight 69.4 kg (153 lb) 09/07/2024 3:57 PM GRAIN CLEANER Height 165.1 cm (5' 5 ) 09/07/2024 3:57 PM GRAIN CLEANER Body Mass Index 25.46 09/07/2024 3:57 PM GRAIN CLEANER Plan of Treatment Health Maintenance Due Date Last Done Comments Breast Cancer Screening-Mammogram 1965 Hepatitis B Screening 1982 Zoster Vaccine (2 of 2) 04/29/2021 03/04/2021 Covid-19 Vaccine (3 - 2023-2 5 season) 2024 03/25/2021, 03/04/2021 Depression Screening 10/12/2024 10/13/2023, 08/11/2023, 07/14/2023, Additional history exists Cervical Cancer Screening 12/26/2024 12/27/2023 Regular Well Visit/Exam 18-64 12/26/2024 12/27/2023 Colon Cancer Screening-Colonoscopy 04/28/2032 04/28/2022 DTaP/Tdap/Td Vaccine (2 - Td or Tdap) 08/02/2034 08/02/2024 Colon Cancer Screening-CT Colonography Discontinued 04/28/2022 Colon Cancer Screening-DNA Stool Discontinued 04/28/20 Colon Cancer Screening-FIT Discontinued 04/28/2022 Colon Cancer Screening-Sigmoidoscopy Discontinued 04/28/2022 Hepatitis C Screening Completed 05/06/2023 Influenza Vaccine Completed 05/02/2024, , 05/22/2015 Pneumococcal vaccine <65 Completed 05/02/2024, 02/2022 Goals Goal Patient Goal Type Associated Problems Recent Progress Patient-Stated? Author [facility] On track( 021 1:17 PM GRAIN CLEANER) Tracy Ricardo RN Note: Patient will establish a comfort-function goal and identify the pain level that will allow the patient to perform desired activities and achieve an acceptable quality of life. Medical Devices Implanted Type Area Jewel Bearing Broacher Device Identifier Shelf Expiration Date Model / Serial / Lot Lifenet [id number]-1500-002 Vivigen Allograft Graft 5 Cc Bone Cortical Cancellous; Deminerali - [id number] - [id number] Implanted:Qty: 1 on 08/28/2019 by Dmitry Duffy MD at [facility] N/A: Spine Lumbar Lifenet 03/22/2020 [id number] / [id number] / Depuy Spine [id number] Concorde [id number] Radiopaque 5d Lordotic Bullet Nose Cage Spinal Latex Free - [id number] Implanted:Qty: 2 on 08/28/2019 by Dmitry Duffy MD at [facility] N/A: Spine Lumbar Depuy Spine [id number] / / Depuy Synthes Spine [id number] Viper Prime 6mm 45mm Polyaxial Extend Tab Spine Screw Bone - [id number] Implanted:Qty: 4 on 08/28/2019 by Dmitry Duffy MD at [facility] N/A: Spine Lumbar Depuy Synthes Spine [id number] / / Depuy Spine [id number] Viper 2 40mm Lordotic Pavan Spinal Titanium Mis - [id number] Implanted:Qty: 2 on 08/28/2019 by Dmitry Duffy MD at [facility] N/A: Spine Lumbar Depuy Spine [id number] / / Depuy Spine [id number] 5.5mm 1 Inner Spine Screw Set Titanium Nonsterile Viper - [id number] Implanted:Qty: 4 on 08/28/2019 by Dmitry Duffy MD at [facility] N/A: Spine Lumbar Depuy Spine [id number] / / Procedures Procedure Name Priority Date/Time Associated Diagnosis Comments US TRANSVAGINAL Routine 07/19/2024 10:57 AM GRAIN CLEANER Cervical mass PAP AND HPV, REFLEX TO HPV GENOTYPES Routine 12/27/2023 2:53 PM CDT Well woman exam HEPATITIS C ANTIBODY Routine 05/06/2023 3:07 PM CDT Need for hepatitis C screening test COLONOSCOPY 04/28/2022 11:23 AM CDT from Last 3 Months or Most Recently Relevant to Health Maintenance Results * US Transvaginal (07/19/2024 10:57 AM GRAIN CLEANER) Cul de Sac No free fluid visualized VIEWPOINT Endometrial Thickness 2.8 mm&millim eters VIEWPOINT Anatomical Region Laterality Modality Pelvis N/A Ultrasound 07/19/2024 10:3 8 AM GRAIN CLEANER Impressions 07/31/2024 2:56 PM GRAIN CLEANER 1. There is a normal-sized uterus without [...] 3. Both ovaries appear within normal limits. Wendie Zhang CODING AND REIMBURSEMENT SPECIALIST IMG US PROCEDURES Final Res ult * Pap and HPV, reflex to HPV Genotypes (12/27/2023 2:53 PM CDT) CLINICAL INFORMATION: [facility] Comment:None given LMP [facility] Comment:None given Previous Pap [facility] Comment:None given Prev. Bx [facility] Comment:None given SOURCE: [facility] Comment:Cervix, Endocervix Pap, specimen adequacy [facility] Comment: Satisfactory for evaluation. Endocervical/transformation zone component absent. Age and/or menstrual status not provided HPV interp [facility] Comment: Cytology Results: Negative for intraepithelial lesion or malignancy. COMMENTS [facility] Comment: This Pap test has been evaluated with computer assisted technology. Scalemaker [facility] Comment: CAK, CT(ASCP) CT Screening Location: [place] [address] , [place] [address] Comment [facility] Comment: EXPLANATORY NOTE: The Pap is [...] High Risk E6/E7 Not Detected NOT DETECTED [employer] [facility] [place] Comment: Not Detected High Risk HPV types (16,18,31,33,35,39,45,51,52, 56,58,59,66,68) were not detected. Other HPV types which cause anogenital lesions may be present. The significance of the other types of HPV in malignant processes has not been established. Methodology: Real Time PCR Thin prep 12/27/2023 2:53 PM CDT 12/28/2023 1:30 AM CDT Wendie Zhang CODING AND REIMBURSEMENT SPECIALIST LAB CYTOLOGY ORDERABLES Fin al Result [facility] [address] [place] [address] [facility] [address] [place] [address] * Hepatitis C antibody Blood (05/06/2023 3:07 PM CDT) Hep C Ab Nonreactive Nonreactive [facility] Comment: Interpretive Data Nonreactive: Antibodies to HCV [...] last revised on 2019. Testing performed by: [facility], [address] [place] [address]., [address] Blood 05/06/2023 3:07 PM CDT 05/07/2023 7:45 AM CDT Henrietta Sinha NP LAB MICROBIOLOGY - GENERAL ORDER SWATHI Final Result [facility] 1 [facility] Department [place] [address] * COLONOSCOPY (04/28/2022 11:23 AM CDT) Anatomical Region Laterality Modality Other Narrative Procedure Note Flakita Downs MD - 04/28/2022 11:23 AM CDT [facility] Patient Name: Leeann Mejia Procedure Date: 04/28/2022 11:23AM Date of : 1965 Admit Type: Outpatient Age: 56 Gender: Female Attending MD: Flakita Downs M.D. Room: [facility] ENDOSCOPY ROOM 1 Note Status: Finalized Patient [...] retrieved. Clip (MR conditional) was placed. Clipmanufacturer: Architizer. - Eleven 5 to 14 mm polyps [...] under direct vision. The Pediatric Colonoscope [id number] was introducedthrough the anus and advanced to [...] clip was successfully placed (MR conditional). Clip tractor engine mechanic: Architizer. Therewas no bleeding at the end of [...] 11:23 AM Procedure Code(s): --- Professional --- 22279, Colonoscopy, flexible; with removal of tumor(s), polyp(s), or other lesion(s) by snare technique 63534, 59, Colonoscopy, flexible; with biopsy, single or multiple Diagnosis Code(s): --- Professional --- K64.8, Other hemorrhoids D12.4, Benign neoplasm of descending colon D12.5, Benign neoplasm of sigmoid colon K52.9, Noninfective gastroenteritis and colitis, unspecified CPT copyright 2020 [employer]. All rights reserved. The codes documented in this report are preliminary and upon investment counselor reviewmay be revised to meet current compliance requirements. Recognized by the [employer] for promoting quality in endoscopy Flakiat Downs MD ENDOSCOPY PROCEDURES Final Result from Last 3 Months or Most Recently Relevant to Health Maintenance Insurance MEDICARE IDPA MEDICARE [facility] AETNA [facility] MEDICARE [facility] MEDICARE IDPA Advance Directives For more information, please contact: [phone] * Full Code (Latest Code Status on [...] 6:23 PM 08/28/2019 3:42 PM Care Teams Foam Caster Relationship Specialty Start Date End Date Stephen Jeffery MD [address] [place] [address] PCP - General Family Medicine 02/19/23 [place] [address] [facility] [address] [place] [address] Surgeon Orthopedic Surgery 08/30/19 Tati Child MD [address] [place] [address] DR JACOBSON [facility] [place] [address] Consulting Physician Obstetrics and Gynecology 09/12/24
--- OUTSIDE RECORDS SUMMARY | 2024-09-19 13:01 | XMS_ITS | Clinical Summary ---
Author Organization [facility] Address [address] [place] [address] Phone Care Team Providers Care Mc Kay Stitcher Name Role Phone Wallace Lawson Primary Care Provider [phone] Allergies Active Allergy Reactions Criticality Noted Date Comments Aspirin Unknown,Other (see Comments) High 10/10/2016 Nose bleeds Meperidine Anaphylaxis,Swelling High 10/10/2016 Airway and hives Mirtazapine Anxiety 03/13/2024 Morphine Anaphylaxis,Swelling High 10/10/2016 Swelling of throat and hives Penicillins Anaphylaxis,Shortnes s of Breath High 10/10/2016 Quetiapine Hallucinations,Other (see Comments) High 01/17/2019 Sleep walk and moves things around in her sleep. And said she also tried to go out a window while asleep. Sulfamethoxazole-Trimet hoprim Hives,Rash,Itching,U nknown High 10/12/2016 Tetracycline Hives,Rash,Unknown High 10/10/2016 Medications albuterol 108 (90 Base) MCG/ACT Aerosol Solution 2 Puffs every 4 hours as needed. Active levothyroxine (SYNTHROID) 175 MCG Tablet Take 175 mcg by mouth daily. Active clonazePAM (KlonoPIN) 1 MG Tablet Take 1 mg by mouth 3 times daily. Active Fluticasone-Jovanny meterol (ADVAIR) 230-21 MCG/ACT Aerosol take 2 Puffs by inhalation every 12 hours. Active traMADol (ULTRAM) 50 MG Tablet Take 1 Tab by mouth every 6 hours as needed. 30 Tab 0 7 Active nitroGLYCERIN (NITROSTAT) 0.4 MG SL Tablet 1 Tab by Sublingual route every 5 minutes as needed for Chest pain. 30 Tab 1 7 Active polyethylene glycol (GLYCOLAX, MIRALAX) Pack Take 1 Packet by mouth daily as needed for Constipation. Dissolve in 4-8 oz of liquid. 90 Packet 3 7 Active nicotine (NICODERM CQ) 14 MG/24HR PATCH 24 HR 1 Patch by Transdermal route daily. 30 Patch 0 7 Active Potassium Chloride Ekta ER (KLOR-CON M20 PO) Take 1 Tablet by mouth daily. Active ondansetron (ZOFRAN-ODT) 4 MG TABLET DISPERSIBLE Take 1 Tablet by mouth every 6 hours as needed for Nausea - 1st line. 10 Tablet 3 Active senna (SENOKOT) 8.6 MG Tablet Take 1 Tablet by mouth 2 times daily as needed for Constipation - 3rd line. 30 Tablet 3 Active topiramate 50 MG Tablet Take 1 Tablet by mouth 2 times daily. 180 Tablet 3 Active carBAMazepine (TEGretol) 200 MG Tablet Take 200 mg by mouth every morning and at midday, and take 400 mg by mouth every night. Active ketorolac (TORADOL) 10 MG Tablet Take 1 Tablet by mouth every 6 hours as needed for Mild or more severe pain. 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 Tobacco dependence 07/28/2022 Seizure disorder 07/28/2022 Hypothyroidism 07/28/2022 Hyperlipidemia 07/28/2022 History of breast cancer 07/28/2022 History of thyroid cancer 07/28/2022 History of brain tumor 07/28/2022 CVA (cerebral vascular accident) 07/27/2022 Acute chest pain 10/11/2016 Cough 10/11/2016 COPD (chronic obstructive pulmonary disease) (<H CC>) 10/11/2016 Active smoker 10/11/2016 HTN (hypertension) 10/11/2016 Seizure (<HCC>) 10/11/2016 Anxiety with depression 10/11/2016 Diarrhea 10/11/2016 Resolved Problems Problem Noted Date Diagnosed Date Resolved Date Community acquired pneumonia 07/28/2022 07/31/2022 Family History Medical History Relation Name Comments No Known Problems Brother 1 No Known Problems Brother 2 Hypertension Brother 3 Other-comment Father Amyotrophic la teral sclerosis (ALS) FALS No Known Problems Mother Depression Sister 1 kamilla Hypertension Sister 1 kamilla Depression Sister 2 Hypertension Sister 2 Depression Sister 3 Hypertension Sister 3 Depression Sister 4 Hypertension Sister 4 Depression Sister 5 Hypertension Sister 5 Other-comment Sister 6 blood disorder No Known Problems Sister 7 Relation Name Status Comments Brother 1 Brother 2 Alive Brother 3 Alive Father Mother Sister 1 kamilla Alive Sister 2 Alive Sister 3 Alive Sister 4 Alive Sister 5 Alive Sister 6 Sister 7 Social History Tobacco Use Types Packs/Day Years Used Date Smoking Tobacco: Every Day Smokeless Tobacco: Never Tobacco Cessation:Ready to Q uit: Not Asked; Counseling Given: Not Answered Alcohol Use Standard Drinks/Week Comments No 0 (1 standard drink = 0.6 oz pur e alcohol) Sexually Active Control Partners Comments Not Currently Comments No Sex and Gender Information Value Date Recorded Sex Assigned at Not on file Legal Sex Female 7:53 PM CDT Gender Identity Not on file Sexual Orientation Not on file Last Filed Vital Signs Vital Sign Reading Time Taken Comments Blood Pressure 139/93 03/13/2024 10:30 PM CDT Pulse 54 03/13/2024 10:30 PM CDT Temperature 36.4 C (97.6 F) 03/13/2024 6:50 PM CDT Respiratory Rate 17 03/13/2024 10:30 PM CDT Oxygen Saturation 98% 03/13/2024 10:30 PM CDT Inhaled Oxygen Concentration - - Weight 78.6 kg (173 lb 3.2 oz) 03/13/2024 6:50 P M CDT Height 165.1 cm (5' 5 ) 03/13/2024 6:50 PM CDT Body Mass Index 28.82 03/13/2024 6:50 PM CDT Plan of Treatment Health Maintenance Due Date Last Done Comments Hepatitis C Virus (HCV) Screening 1964 TdaP Immunization 1964 Mammogram 1974 Hepatitis B Immunization (1 of 3 - 19+ 3-dose series) 09/23/1983 Pap Smear 1985 Cervical Cancer Screening (CCS) 1994 HPV/Cotest 1994 Cologuard 2014 Immunochemical Fecal Occult Blood 2014 Zoster Immunization (2 of 2) 04/29/2021 03/04/2021 Pneumococcal Immunization (5 0+ years) (2 of 2 - PCV) 03/19/2023 03/19/2022 Influenza Immunization (#1) 2024 05/19/2017 SARS-COV-2 Immunization (3 - season) 2024 03/25/2021, 03/04/2021 Colonoscopy 04/28/2032 04/28/2022 Colorectal Cancer Screening 04/28/2032 Respiratory Syncytial Virus (RSV) Immunization (Adult) (1 - 1-dose 75+ series) 09/23/2039 04/28/2022 Pneumococcal Immunization Combined Discontinued 03/19/2022 Meningococcal Immunization (ACWY) Aged Out No longer eligible based on patient's age to complete this topic Rotavirus Immunization Aged Out No lo nger eligible based on patient's age to complete this topic Insurance MEDICAID [place] MEDICARE Advance Directives * Full Code (Latest Code Status on File) Date Activated Date Inactivated Comments 08/04/2022 7:28 PM 08/07/2022 3:10 PM CPR-Full Domenico atment: FULL ARREST: Attempt Resuscitation/CPR wit intubation and mechanical ventilation. PRE-ARREST: Use entire range of life support measures to stabilize the patient. * Full Code Date Activated Date Inactivated Comments 07/27/2022 7:00 PM 07/31/2022 3:03 PM CPR-Full Domenico atment: FULL ARREST: Attempt Resuscitation/CPR wit intubation and mechanical ventilation. PRE-ARREST: Use entire range of life support measures to stabilize the patient. * Full Code Date Activated Date Inactivated Comments 10/11/2016 11:26 AM 10/12/2016 7:31 PM CPR-Full Bessy tment: FULL ARREST: Attempt Resuscitation/CPR wit intubation and mechanical ventilation. PRE-ARREST: Use entire range of life support measures to stabilize the patient. Care Teams Mc Kay Stitcher Relationship Specialty Start Date End Date Wallace Lawson, [address] [place] [address] PCP - General Physician Shade Cloth Finisher 10/10/16
--- OUTSIDE RECORDS SUMMARY | 2024-09-19 13:01 | XMS_ITS | Encounter Summary ---
Author Organization [facility] Home Care [facility] es Address [address] [place] [address] Phone Care Team Providers Care Veterinary Physiologist Name Role Phone Wallace Lawson Primary Care Provider [phone] Dmitry Duffy MD Unavailable [phone] Stephen Jeffery MD Primary Care Provider [phone] Tati Child MD Unavailable [phone] Encounter Details Date Type Department Care Team (Late st Contact Info) Description 08/30/2019 Telephone [facility] [address] [place] [address] Turner Garcia, RN Social History Tobacco Use Types Packs/Day Years Used Date Smoking Tobacco: Every Day Cigarettes Alcohol Use Standard Drinks/Week Comments No 0 (1 standard drink = 0.6 oz pur e alcohol) PHQ-2 Answer Date Recorded PHQ-2 Score 4 08/10/2019 Comments No Sex and Gender Information Value Date Recorded Sex Assigned at Not on file Legal Sex Female 7:07 AM [employer] OFF[employer] Gender Identity Female 07/02/2020 2:31 PM [employer] OFFICER Sexual Orientation Not on file documented as of this encounter Plan of Treatment Not on file documented as of this encounter Visit Diagnoses Not on filedocumented in this encounter Additional Health Concerns Infection Onset Date Last Indicated Resolved Time COVID: Suspected 06/13/2021 06/13/2021 06/13/2021 7:32 PM [employer] OFFICER documented as of this encounter Care Teams Veterinary Physiologist Relationship Specialty Start Date End Date Wallace Lawson PA [address] [place] [address] PCP - General 01/21/17 02/18/23 Stephen Jeffery MD [address] [place] [address] PCP - General Family Medicine 02/19/23 [place] [id number] [address] Surgeon Orthopedic Surgery 08/30/19 Tati Child MD [address] [place] [address] DR JACOBSON [address] [place] [id number] Consulting Physician Obstetrics and Gynecology 09/12/24 documented as of this encounter
--- OUTSIDE RECORDS SUMMARY | 2024-09-19 13:01 | XMS_ITS | Referral Summary ---
Author Organization [facility] [employer] Address [address] [place] [address] Care Team Providers Care Retail Route Supervisor Name Role Phone Wallace Lawson Primary Care Provider [phone] Source Comments [facility] [employer]non-owned Affiliates and Associated Physician Practices is amultiple site organization consisting of ambulatory clinics and hospital sitesin [place], [place], [place] and [place]. This disclosure is being madepursuant to the Care Everywhere program and may not contain all information available regarding this patient. Last updated 18.[facility] [employer] Medications Be aware that medications may not [...] 127 kg (280 lb) 09/18/2022 2:35 PM INFECTION PREVENTION PRACTITIONER Height 166.4 cm (5' 5.5 ) 09/18/2022 2:35 PM INFECTION PREVENTION PRACTITIONER Body Mass Index 45.89 09/18/2022 2:35 PM INFECTION PREVENTION PRACTITIONER Plan of Treatment Not on file Administered Medications Care Teams Retail Route Supervisor Relationship Specialty Start Date End Date Wallace Lawson PA [address] [place] [address] PCP - General 07/06/19
--- OUTSIDE RECORDS SUMMARY | 2024-09-19 13:01 | XMS_ITS | CONTINUITY OF CARE DOCUMENT ---
Author Name bridget gill Address Unknown Organization [facility] Address [address] [place] [address] [address] [place] [address] Phone [phone] Care Team Providers Care Senior Cost Accountant Name Role Phone Ruben MARUCM, Sotero Unavailable BERNARDO MARSHALL Unavailable BERNARDO MARSHALL Unavailable [phone] PROBLEMS Condition Status Date Provider Notes Benign neoplasm of brain active Sotero villalpando MD DIZZINESS active ? Sotero Miranda MD CVA active Sotero Miranda MD CAROTID ARTERY DISEASE active Sotero Miranda MD HTN ESSENTIAL active Sotero Miranda MD Hyperlipidemia active Sotero Miranda MD CHEST PAIN active ? Sotero Miranda MD ENCOUNTERS Date Type Provider Location Encounter Diag nosis - In-person encounter Office Visit Sotero Miranda MD [facility] [place] Office - In-person encounter Office Visit Sotero Miranda MD [facility] Hyperlipidemia - In-person encounter Office Visit Tucker Lozada MD [facility] [place] Office - In-person encounter Office Visit Sotero Miranda MD [facility] [place] [facility] Benign neoplasm of brain - In-person encounter Office Visit Sotero Miranda MD [place] [facility] DIZZINESS - In-person encounter Office Visit Sotero Miranda MD [place] [facility] CHEST PAINHyperlipidemiaHTN ESSENTIALCAROTID ARTERY DISEASECVA VITAL SIGNS Date Observation Value Provider Body Mass Index (Ratio) 33.57 kg/m2 Jamel Miranda MD blood pressure, cuff size regular Henri Avalos oxygen saturation, oximetry 94 % Alma Hymanby blood pressure, diastolic 80 mm[Hg] Henri Hymanby blood pressure, systolic 140 mm[Hg] Vinicio Hymanby respiratory rate E&M 18 /min Alma Hyman pulse rate 78 /min Alma [place] blood pressure, resting Yes Rodolfo mena Robbie weight E&M 208 [lb_av] Alma [place] height E&M 66 [in_i] Alma Hymanby blood pressure, diastolic 92 mm[Hg] Hi chino Berry blood pressure, systolic 144 mm[Hg] Pam Berry pulse rate 87 /min Jeanette Berry oxygen saturation, oximetry 96 % Jeanette Berry respiratory rate E&M 16 /min Jeanette Berry Body Mass Index (Ratio) 31.12 kg/m2 Trudi Berry weight E&M 192.8 [lb_av] Jeanette Berry Body Mass Index (Ratio) 28.51 kg/m2 Jannette a Stueber blood pressure, diastolic 94 mm[Hg] Agustin butts Stueber blood pressure, systolic 132 mm[Hg] Nilton adam Stueber pulse rate 91 /min Keira Stueber oxygen saturation, oximetry 97 % Keira Stueber respiratory rate E&M 16 /min Keira goodrich weight E&M 176.0 [lb_av] Keira Stueber Body Mass Index (Ratio) 28.22 kg/m2 Jannette a Stueber blood pressure, diastolic 79 mm[Hg] Agustin butts Stueber blood pressure, systolic 121 mm[Hg] Nilton Pringle pulse rate 94 /min Keira Pringle oxygen saturation, oximetry 96 % Keira Pringle respiratory rate E&M 16 /min Keira goodrich weight E&M 174.2 [lb_av] Keira Pringle height E&M 66 [in_i] Keira Pringle ALLERGIES Allergy Name Onset Date Reaction Criticality Status OXYCODONE High Criticality active MORPHINE swelling, hives, sob High Criticalit y active RESULTS Date Observation Value Provider Reference Range Interpretation Location platelet count 314 10*3[facility] hematocrit, blood 38.0 % [facility] international normalized ratio (INR) 1.07 [facility] thyroid stimulating hormone, serum <0.04 [facility] B-type natriuretic peptide 9 pg/mL [facility] alanine aminotransferase (SGPT), serum 14 1/L [facility] aspartate aminotransferase (SGOT), serum 37 1/L [facility] creatinine, serum 0.78 mg/dL [facility] potassium, serum 3.5 mmol/L [facility] sodium, serum 142 mmol/L Johnny Goldman HISTORY OF MEDICATION USE Medication Status Instructions Dates Provider Indications Com ments ALEVE TABLET active as needed for pain Alma Avalos HYDROCODONE-ACET AMINOPHEN 10-325 MG ORAL TABLET active take one tablet by mouth every 406 hours as needed Alma Avalos #90, 30 days supply, Prescribed by MICKEY MCGUIRE, Filled 04/27/2020 ATORVASTATIN CALCIUM 20 MG ORAL TABLET active take one tablet by mouth once daily Alma Avalos #90, 90 days supply, Prescribed by BERNARDO LEE, Filled 06/07/2020 ATENOLOL 50 MG ORAL TABLET active ONE TAB DAILY Sotero Miranda MD SYMBICORT 160-4.5 MCG/ACT INHALATION AEROSOL completed 1 time daily - Keira Pringle ACCUNEB NEBU active 4 times daily PRN Keira Pringle LEVOTHYROXINE SODIUM 175 MCG ORAL TABLET active 1 tab daily Keira Pringle CLONAZEPAM 1 MG ORAL TABLET active one tab twice daily and 2 tabs HS daily Keira Pringle CELEXA 40 MG ORAL TABLET active daily Keira Pringle HYDROCODONE-ACET AMINOPHEN 10-325 MG ORAL TABLET completed 1 tab every 4 hours PRN - Jeanette Berry ADULT ASPIRIN EC LOW STRENGTH 81 MG ORAL TABLET DELAYED RELEASE completed 1 tab daily - Jeanette Berry CARISOPRODOL 350 MG ORAL TABLET completed HS - Alma Avalos CARBAMAZEPINE 200 MG ORAL TABLET active TID Keira Pringle ABILIFY 5 MG ORAL TABLET active daily Tucker Lozada MD SOCIAL HISTORY Date Observation Value Provider social history E&M Marital Statu s: Car burrell with family/friends J ob Status: Retired A lcohol Use - yes P atient currently smokes every day. 2 PPD x 39 years A lcohol Use - no D rug Use - no S moking History: P atient currently smokes every day. P atient has been counseled to quit. Sotero Miranda MD social history reviewed E&M revi ewed - no changes required Sotero Miranda MD seatbelt usage 100 % Alma Avalos passive cigarette sm heather exposure no Alma Avalos smoking/tobacco cess ation, patient education and counseling yes Alma Avalos smoking, date started 1975 Alma Avalos smoking history, tot al pack/year 37 Alma Avalos smoking history, tot al pack/day 1.5 Alma Avalos cigarette use yes Alma Avalos smoking status Current every day smoker K flaca Avalos smoking status Current every day smoker R aby Miranda MD social history reviewed E&M revi ewed - no changes required Sotero Miranda MD drug use no Tucker Ellis social history E&M Marital Statu s: Car burrell with family/friends J ob Status: Retired A lcohol Use - yes P atient currently smokes every day. 2 PPD x 39 years A lcohol Use - no D rug Use - no S moking History: P atient currently smokes every day. P atient has been counseled to quit. Tucker Lozada MD alcohol use no Tucker Ellis smoking/tobacco cess ation, patient education and counseling yes Tucker Lozada MD smoking status Current every day smoker Gladys nura Lozada MD social history reviewed E&M revi ewed - no changes required Tucker Lozada MD social history reviewed E&M revi ewed - no changes required Sotero Miranda MD seatbelt usage 100 % Jeanette Berry alcohol use no Jeanette Berry drug use none Jeanette Berry smoking/tobacco cess ation, patient education and counseling yes Jeanette Berry passive cigarette sm heather exposure no Jeanette Berry smoking, date started 1975 Luciano Berry smoking history, tot al pack/year 37 Jeanette Berry smoking history, tot al pack/day 1.5 Jeanette Berry cigarette use yes Jeanette Berry smoking status current every day smoker Ferdinand Berry drug use none Sotero Ellis social history reviewed E&M reviewed Sotero Miranda MD smoking history, tot al pack/year 37 Keira Pringle seatbelt usage 100 % Sotero Miranda MD passive cigarette sm heather exposure no Sotero Miranda MD smoking/tobacco cess ation, patient education and counseling yes Sotero Miranda MD social history E&M Marital Statu s: Car burrell with family/friends J ob Status: Retired Sotero Miranda MD drug use no Sotero Ellis social history reviewed E&M reviewed Sotero Miranda MD smoking history, tot al pack/day 1.5 Keira Stueber smoking history, tot al pack/year 37 Keira Stueber cigarette use yes Keira Stueber smoking, date started 1975 Keira Stueber smoking status current every day smoker T sari Strodneyber MENTAL STATUS Date Observation Value Provider assessment of judgme nt and insight E&M Alert and oriented to time, place and person. Mood and affect are normal. Sotero Miranda MD assessment of judgme nt and insight E&M Alert and oriented to time, place and person. Mood and affect are normal. Sotero Miranda MD FAMILY HISTORY Family Member Condition First Degree Blood Relative No Known Fam matthew History INSURANCE PROVIDERS Payer name Policy type / Coverage type [place] red republican ID [facility] Medicaid 0 [id number] [place] MED[place]ARE Medicare [id number] TREATMENT PLAN Date Name Performer Cardiology Sotero Miranda MD Cardiology Sotero Miranda MD Cardiology Sotero Miranda MD Cardiology Sotero Miranda MD Cardiology Sotero Miranda MD TeleHealth Sotero Miranda MD TeleHealth Sotero Miranda MD TeleHealth Sotero Miranda MD TeleHealth Sotero Miranda MD TeleHealth Sotero Miranda MD TeleHealth:I spent b etween 10-20 minutes discussing with the patient regarding symptoms, available test results, and plan of care. Sotero Miranda MD Hem/Onc: O rders: 9 [phone] LTD Complex ([id number]) Tucker Lozada MD Hem/Onc:I have revie wed records from Dr. Centeno's office. It appears that the 'brain tumor' was actually misread. 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 No further follow up necessary. O rders: 9 [phone] LTD Complex ([id number]) Tucker Lozada MD Cardiology Sotero Miranda MD Cardiology Sotero Miranda MD Cardiology Sotero Miranda MD Cardiology Sotero Miranda MD Cardiology Sotero Miranda MD Cardiology Sotero Miranda MD follow up: H er updated medication list for this problem includes: Adult Aspirin Ec Low Strength 81 Mg Tbec (Aspirin) ..... 1 tab daily Sotero Miranda MD follow up: H er updated medication list for this problem includes: Adult Aspirin Ec Low Strength 81 Mg Tbec (Aspirin) ..... 1 tab daily Sotero Miranda MD follow up: H er updated medication list for this problem includes: Adult Aspirin Ec Low Strength 81 Mg Tbec (Aspirin) ..... 1 tab daily Sotero Miranda MD follow up: H er updated medication list for this problem includes: Adult Aspirin Ec Low Strength 81 Mg Tbec (Aspirin) ..... 1 tab daily Clonazepam 1 Mg Tabs (Clonazepam) ..... One tab twice daily and 2 tabs hs daily Orders: E KG ([id number]) Sotero Miranda MD follow up: H er updated medication list for this problem includes: Adult Aspirin Ec Low Strength 81 Mg Tbec (Aspirin) ..... 1 tab daily Sotero Miranda MD New Patient: H er updated medication list for this problem includes: Adult Aspirin Ec Low Strength 81 Mg Tbec (Aspirin) ..... 1 tab daily Sotero Miranda MD New Patient: H er updated medication list for this problem includes: Adult Aspirin Ec Low Strength 81 Mg Tbec (Aspirin) ..... 1 tab daily Sotero Miranda MD New Patient: H er updated medication list for this problem includes: Adult Aspirin Ec Low Strength 81 Mg Tbec (Aspirin) ..... 1 tab daily Sotero Miranda MD New Patient: B P today: 121/79 Prior BP: / () Sotero Miranda MD New Patient: H er updated medication list for this problem includes: Adult Aspirin Ec Low Strength 81 Mg Tbec (Aspirin) ..... 1 tab daily Orders: E KG ([id number]) S TR - Adenosine (04084) Sotero Miranda MD Date Name Stress Regadenoson Carotid Duplex Bilat eral Complete Echo Stress Regadenoson Carotid Duplex Bilat eral Complete Echo STR - Adenosine HISTORY OF PROCEDURES Procedure Date Procedure Name Provider Procedure Notes S tatus EKG Sotero Miranda MD complete d SNOMED-CT: 080294717 [id number] Current Medications Documented Tucker Lozada MD completed SNOMED-CT: 914629254 Smoking Cessation Counseling Sotero Miranda MD completed EKG Sotero Miranda MD complete d SNOMED-CT: 640317351 237970 Current Medications Documented Sotero Miranda MD completed EKG Sotero Miranda MD complete d EKG Sotero Miranda MD complete d
--- OUTSIDE RECORDS SUMMARY | 2024-09-19 13:01 | XMS_ITS | Clinical Summary ---
Author Organization [facility] Address [address] [place] [address] Care Team Providers Care Planer Offbearer Name Role Phone Wallace Lawson Primary Care Provider [phone] Source Comments [facility],non-owned Affiliates and Associated Physician Practices is amultiple site organization consisting of ambulatory clinics and hospital sitesin [place], [place], [place] and [place]. This disclosure is being madepursuant to the Care Everywhere program and may not contain all information available regarding this patient. Last updated 18.[facility] Medications Be aware that medications may not [...] 127 kg (280 lb) 09/18/2022 2:35 PM RISK MANAGER Height 166.4 cm (5' 5.5 ) 09/18/2022 2:35 PM RISK MANAGER Body Mass Index 45.89 09/18/2022 2:35 PM RISK MANAGER Plan of Treatment Health Maintenance Due Date Last Done Comments COLOGUARD (AGES 45-75) - COL ON CA SCREENING 1964 COLON MONITORING 1964 COLONOSCOPY - COLON CA SCREENING 1964 CT COLONOGRAPHY - COLON CA SCREENING 1964 Colorectal Cancer Screening 1964 FIT - COLON CA SCREENING 1964 FLEX SIG - COLON CA SCREENING 1964 LIPID TESTING 1964 MAMMOGRAM 1964 MEDICARE AWV 12 MONTHS 1964 HIV SCREENING 09/23/1979 HEPATITIS C SCREENING 09/18/1982 DTAP/TDAP/TD VACCINES (1 - Tdap) 09/23/1983 HEPATITIS B VACCINE (1 of 3 - 19+ 3-dose series) 09/23/1983 PNEUMOCOCCAL VACCINE 50+ (1 of 1 - PCV) 2014 ZOSTER VACCINE (1 of 2) 2014 SCREENING FOR DIABETES 09/18/2022 COVID-19 VACCINE (1 - 2023-2 5 season) 2024 INFLUENZA VACCINE (#1) 2024 7, 05/22/2015 DEPRESSION SCREENING 07/12/2024 PAP SMEAR 07/30/2025 07/30/2022 HIB VACCINE Aged Out No longer eligi ble based on patient's age to complete this topic HPV VACCINE Aged Out No longer eligi ble based on patient's age to complete this topic MENINGOCOCCAL (Group B) VACCINE Aged Out No longer eligible b ased on patient's age to complete this topic MENINGOCOCCAL VACCINE Aged Out No marck manuel eligible based on patient's age to complete this topic PNEUMOCOCCAL VACCINE Aged Out No long er eligible based on patient's age to complete this topic Care Teams Planer Offbearer Relationship Specialty Start Date End Date Wallace Lawson PA [address] [place] [address] PCP - General 07/06/19
--- OUTSIDE RECORDS SUMMARY | 2024-09-19 13:01 | XMS_ITS | Encounter Summary ---
Author Organization [facility] Healthcare Address [address] [place] [address] Care Team Providers Care Orthopedic Specialist Name Role Phone Wallace Lawson Primary Care Provider [phone] Dmitry Duffy MD Unavailable [phone] Stephen Jeffery MD Primary Care Provider [phone] Tati Child MD Unavailable [phone] Encounter Details Date Type Department Care Team (Late st Contact Info) Description 10/21/2020 Telephone [facility] [address] [place] [address] Chula Maharaj, RT Social History Tobacco Use Types Packs/Day Years Used Date Smoking Tobacco: Every Day Cigarettes Smokeless Tobacco: Never Alcohol Use Standard Drinks/Week Comments No 0 (1 standard drink = 0.6 oz pur e alcohol) PHQ-2 Answer Date Recorded PHQ-2 Total Score (If total score is 3 or more points, staff should administer the PHQ-9) 1 08/16/2020 Comments No Sex and Gender Information Value Date Recorded Sex Assigned at Not on file Legal Sex Female 7:07 AM PIPE COVERING MOLDER Gender Identity Female 07/02/2020 2:31 PM PIPE COVERING MOLDER Sexual Orientation Not on file documented as of this encounter Plan of Treatment Not on file documented as of this encounter Goals Goal Patient Goal Type Associated Problems Recent Progress Patient-Stated? Author [facility] On track( 021 1:17 PM PIPE COVERING MOLDER) No Tracy Roblero, RN Note: Patient will establish a comfort-function goal and identify the pain level that will allow the patient to perform desired activities and achieve an acceptable quality of life. documented as of this encounter Visit Diagnoses Not on filedocumented in this encounter Additional Health Concerns Infection Onset Date Last Indicated Resolved Time COVID: Suspected 06/13/2021 06/13/2021 06/13/2021 7:32 PM PIPE COVERING MOLDER documented as of this encounter Care Teams Orthopedic Specialist Relationship Specialty Start Date End Date Wallace Lawson PA [address] [place] [address] PCP - General 01/21/17 02/18/23 Stephen Jeffery MD [address] [place] [address] PCP - General Family Medicine 02/19/23 [place] [id number] [address] Surgeon Orthopedic Surgery 08/30/19 Tati Child MD [address] [place] [address] DR J[address]OBSON [address] [place] [address] Consulting Physician Obstetrics and Gynecology 09/12/24 documented as of this encounter
--- OUTSIDE RECORDS SUMMARY | 2024-09-19 13:01 | XMS_ITS | Encounter Summary ---
Author Organization [facility] Healthcare Address [address] [place] [address] Care Team Providers Care Property Preservation Specialist Name Role Phone Wallace Lawson Primary Care Provider [phone] Dmitry Duffy MD Unavailable [phone] Stephen Jeffery MD Primary Care Provider [phone] Tati Child MD Unavailable [phone] Encounter Details Date Type Department Care Team (Late st Contact Info) Description 05/31/2020 Telephone [facility] [address] [place] [address] Miquel Peter, RT Social History Tobacco Use Types Packs/Day Years Used Date Smoking Tobacco: Every Day Cigarettes Smokeless Tobacco: Never Alcohol Use Standard Drinks/Week Comments No 0 (1 standard drink = 0.6 oz pur e alcohol) PHQ-2 Answer Date Recorded PHQ-2 Score 2 05/21/2020 Comments No Sex and Gender Information Value Date Recorded Sex Assigned at Not on file Legal Sex Female 7:07 AM AIR TRAFFIC INSTRUCTOR Gender Identity Female 07/02/2020 2:31 PM AIR TRAFFIC INSTRUCTOR Sexual Orientation Not on file documented as of this encounter Plan of Treatment Not on file documented as of this encounter Visit Diagnoses Not on filedocumented in this encounter Additional Health Concerns Infection Onset Date Last Indicated Resolved Time COVID: Suspected 06/13/2021 06/13/2021 06/13/2021 7:32 PM AIR TRAFFIC INSTRUCTOR documented as of this encounter Care Teams Property Preservation Specialist Relationship Specialty Start Date End Date Wallace Lawson PA [address] [place] [address] PCP - General 01/21/17 02/18/23 Stephen Jeffery MD [address] [place] [address] PCP - General Family Medicine 02/19/23 [place] [address] [address] Surgeon Orthopedic Surgery 08/30/19 Tati Child MD [address] [place] [address] DR JACOBSON [address] [place] [address] Consulting Physician Obstetrics and Gynecology 09/12/24 documented as of this encounter
--- OUTSIDE RECORDS SUMMARY | 2024-09-19 13:04 | XMS_ITS | CONTINUITY OF CARE DOCUMENT ---
Author Name bridget gill Address Unknown Organization [facility] Address [address] [place] [address] [address] [place] [address] Phone [phone] Care Team Providers Care Construction Consultant Name Role Phone Ruben MARCUM, Sotero Unavailable [phone] BERNARDO MARSHALL Unavailable BERNARDO MARSHALL Unavailable [phone] PROBLEMS Condition Status Date Provider Notes CHEST PAIN active ? Sotero Miranda MD Hyperlipidemia active Sotero Miranda MD HTN ESSENTIAL active Sotero Miranda MD CAROTID ARTERY DISEASE active Sotero Miranda MD CVA active Sotero Miranda MD DIZZINESS active ? Sotero Miranda MD Benign neoplasm of brain active Sotero villalpando MD ENCOUNTERS Date Type Provider Location Encounter Diag nosis - In-person encounter Office Visit Sotero Miranda MD [facility] Office - In-person encounter Office Visit Sotero Miranda MD [facility] Office Hyperlipidemia - In-person encounter Office Visit Tucker Lozada MD [facility] Office - In-person encounter Office Visit Sotero Miranda MD [facility] Benign neoplasm of brain - In-person encounter Office Visit Sotero Miranda MD [place] [facility] DIZZINESS - In-person encounter Office Visit Sotero Miranda MD [facility] CHEST PAINHyperlipidemiaHTN ESSENTIALCAROTID ARTERY DISEASECVA VITAL SIGNS Date Observation Value Provider Body Mass Index (Ratio) 33.57 kg/m2 Jamel Miranda MD blood pressure, cuff size regular Henri Avalos oxygen saturation, oximetry 94 % Alma Hymanby blood pressure, diastolic 80 mm[Hg] Henri Hymanby blood pressure, systolic 140 mm[Hg] Vinicio Hymanby respiratory rate E&M 18 /min Alma Hyman pulse rate 78 /min Alma Huntland blood pressure, resting Yes Rodolfo mena Robbie weight E&M 208 [lb_av] Alma Huntland height E&M 66 [in_i] Alma Hymanby blood pressure, diastolic 92 mm[Hg] Nd chino Berry blood pressure, systolic 144 mm[Hg] [...] Range Interpretation Location platelet count 314 10*3[facility]3 [facility] hematocrit, blood 38.0 % [facility] international normalized ratio (INR) 1.07 [facility] thyroid stimulating hormone, serum <0.04 [facility] B-type natriuretic peptide 9 pg/mL [facility] alanine aminotransferase (SGPT), serum 14 1/L [facility] aspartate aminotransferase (SGOT), serum 37 1/L [facility] creatinine, serum 0.78 mg/dL [facility] potassium, serum 3.5 mmol/L [facility] sodium, serum 142 mmol/L Johnny Goldman [...] smoking history, tot al pack/year 37 Keira Prignle seatbelt usage 100 % Sotero Miranda MD [...] Payer name Policy type / Coverage type Filer red green party ID [facility] Medicaid 0 [id number] [place] Medicare [id number] TREATMENT PLAN Date Name Performer Cardiology Sotero [...] Hem/Onc: O rders: [phone] LTD Complex (CPT-[id number]) Tucker Lozada MD Hem/Onc:I have revie wed records from Dr. Centeno's office. It appears that the 'brain tumor' was actually misread. 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 No further follow up necessary. O rders: 9 [phone] LTD Complex (CPT-[id number]) Tucker Lozada MD Cardiology Sotero Miranda MD [...] 2 tabs hs daily Orders: E KG (CPT-[id number]) Sotero Miranda MD follow up: H er [...] ..... 1 tab daily Orders: E KG (CPT-[id number]) S TR - Adenosine (65810) Sotero Miranda MD Date Name Stress Regadenoson Carotid Duplex Bilat eral Complete Echo Stress Regadenoson Carotid Duplex Bilat eral Complete Echo STR - Adenosine HISTORY OF PROCEDURES Procedure Date Procedure Name Provider Procedure Notes S tatus EKG Sotero Miranda MD complete d SNOMED-CT: 376021039 [id number] Current Medications Documented Tucker Lozada MD completed SNOMED-CT: 523892175 Smoking Cessation Counseling Sotero Miranda MD completed EKG Sotero Miranda MD complete d SNOMED-CT: 503458647 005808 Current Medications Documented Sotero Miranda MD completed EKG Sotero Miranda MD complete d EKG Sotero Miranda MD complete d
== END 2024-09-19 12:25 | disposition home or self-care (01) ==
PROVIDERS: Emergency Provider Registered Nurse; PCP Hospitalist
DX: T22.212A Burn of second degree of left forearm, initial encounter (principal); T31.0 Burns involving less than 10% of body surface; I10 Essential (primary) hypertension; J44.9 Chronic obstructive pulmonary disease, unspecified; F17.210 Nicotine dependence, cigarettes, uncomplicated; Z79.899 Other long term (current) drug therapy; Z79.891 Long term (current) use of opiate analgesic; Z79.1 Long term (current) use of non-steroidal anti-inflammatories (NSAID); Z85.3 Personal history of malignant neoplasm of breast; X10.2XXA Contact with fats and cooking oils, initial encounter
CPT/HCPCS: 99213; G0463

== ENCOUNTER 2024-10-02 10:10 | Emergency (ER) | payer MEDICARE, MEDICAID, SELFPAY ==
[2024-10-02 10:18] VITALS: BP 134/81; PULSE 96; RESP 16; TEMP 36.3; O2SAT 96
--- NOTE | 2024-10-02 10:22 | ED.WOUNDLAC ---
HPI - Wound/Laceration General Chief Complaint: Wound/Laceration Stated Complaint: Left arm wound assesment Time Seen by Provider: 10/02/24 10:18 Source: patient, RN notes reviewed and old records reviewed Mode of arrival: ambulatory Limitations: no limitations History of Present Illness HPI narrative: 59 year old female presents to [facility] care with burn to the left lower forearm which initially occurred on the of the month and has been dressing arm as prescribed with cleansing with soap and water,rinsing and applying bacitracin ointment, Telfa and Coban to left forearm. Patient reports that she completed antibiotics as prescribed at time of initial visit. Patient reports that she went to her doctors office today to be seen and was told he was out of the office all week so she came here to be seen. Patient also reports that she has had a cough and runny nose for the past days. Patient does have history of COPD with dyspnea voiced. SAO2 96% on room air no tachypnea. Onset (ago): day(s) (burn initially to left arm on the of this month) Location: other (left forearm) Place: home (09/19/2024) Patient tetanus UTD: Yes Treatments prior to arrival: bandage and other (cleansing with soap and water rinsing and application of Bacitracin,Telfa and Coban to left arm daily) Related Data Home Medications ?Medication ?Instructions ?Recorded ?Confirmed ?Last Taken ?Type carbamazepine 200 mg tablet 200 mg PO DIRECTED 02/06/20 09/19/24 Unknown History clonazepam 1 mg tablet 1 mg PO DIRECTED 02/06/20 09/19/24 Unknown History desvenlafaxine succinate 50 mg 50 mg PO DAILY 02/06/20 09/19/24 Unknown History tablet,extended release 24 hr furosemide 20 mg tablet 20 mg PO DAILY 02/06/20 09/19/24 Unknown History levothyroxine 175 mcg tablet 175 mcg PO DAILY 02/06/20 09/19/24 Unknown History lisinopril 20 mg tablet 20 mg PO DAILY 02/06/20 09/19/24 Unknown History losartan 100 mg tablet 100 mg PO DAILY 02/06/20 09/19/24 Unknown History naproxen 500 mg tablet 500 mg PO BID 02/06/20 05/30/21 Unknown History hydrocodone 10 mg-acetaminophen See Rx Instructions .Route 05/30/21 09/19/24 Unknown History 325 mg tablet .COMPLEX PRN Pain albuterol sulfate 90 mcg/actuation inhalation 09/19/24 Unknown History aerosol inhaler amlodipine 5 mg tablet mg 09/19/24 Unknown History atorvastatin 40 mg tablet mg 09/19/24 Unknown History carisoprodol 350 mg tablet mg 09/19/24 Unknown History dicyclomine 10 mg capsule mg 09/19/24 Unknown History fluticasone fur. 100 mcg-umeclid inhalation 09/19/24 Unknown History 62.5 mcg-vilant 25 mcg inhalat.powder (Trelegy Ellipta) ibuprofen 800 mg tablet mg 09/19/24 Unknown History mirtazapine 15 mg tablet mg 09/19/24 Unknown History ondansetron HCl 8 mg tablet mg 09/19/24 Unknown History propranolol 20 mg tablet mg 09/19/24 Unknown History Allergies Allergy/AdvReac Type Severity Reaction Status Date / Time aspirin Allergy Intermediate bleeding Verified 10/02/24 10:24 meperidine (From Demerol) Allergy Unknown Verified 10/02/24 10:24 morphine Allergy Unknown Verified 10/02/24 10:24 Penicillins Allergy Unknown Verified 10/02/24 10:24 propoxyphene Allergy Unknown Verified 10/02/24 10:24 Sulfa (Sulfonamide Allergy Unknown Verified 10/02/24 10:24 Antibiotics) sulfamethoxazole (From Allergy Unknown Verified 10/02/24 10:24 Septra) Tetracyclines Allergy Unknown Verified 10/02/24 10:24 trimethoprim (From Septra) Allergy Unknown Verified 10/02/24 10:24 Review of Systems Review of Systems: CONSTITUTIONAL: Denies fever, chills, or sweats. CARDIOVASCULAR: Denies chest pain, palpitations, or edema. RESPIRATORY: Patient reports some cough denies any acute dyspnea reports some runny nose GASTROINTESTINAL: Denies abdominal pain, nausea, vomiting SKIN: Reports healing burn to left forearm with area of redness noted to be 5cm X 8cm with no weeping areas or blisters no acute pain to site. MUSCULOSKELETAL: Denies myalgia. NEUROLOGIC: Denies headache, numbness All systems reviewed & are unremarkable except as noted in HPI and below PMFSH Past Medical History Medical History History of breast cancer Tachycardia Depression Anxiety High cholesterol Brain tumor Seizures Bipolar disorder Hypertension COPD (chronic obstructive pulmonary disease) Surgical History Surgical History H/O brain surgery remove tumor Previous back surgery Social History Social History Smoking status: Current every day smoker Tobacco type: cigarettes Living arrangements: with family Gender identity (if verbalized by the patient): Female Comments At time of signature, agree with nursing past medical, surgical, social and family history. There is no relevant family history pertinent to the presenting complaint Exam Narrative: GENERAL: Well-appearing, well-nourished, and in no acute distress. HEAD: Normocephalic, atraumatic. EYES: PERRLA and EOMI. ENT: Nares clear, no rhinorrhea or epistaxis. Mucous membranes moist.TM's normal, throat pink with no redness or swelling NECK: Supple. no lymphadenopathy CHEST: Clear to auscultation. No respiratory distress. cough noted with no dyspnea,SAO2 96% on room air no tachypnea HEART: Regular rate and rhythm. No murmur heard. Normal peripheral pulses. ABDOMEN: Soft, nontender, nondistended, normal active bowel sounds. EXTREMITIES: Normal range of motion. No edema. SKIN: Warm, dry. Erythema area to the left inner arm area from burn which occurred on the which has decreased in size, area on top of left arm which was burned has healed. inner forearm area has no blisters or any weeping tissue denies any acute pain to site. NEURO: No focal deficits. Alert and oriented x3. Course Course Emergency Course: Patient is aware of diagnosis, understands and agrees to treatment plan. Anticipatory guidance given. Patient agrees to follow-up as directed and is aware of reasons to seek care at the emergency department. Portions of this record may have been created with voice recognition software Level of Care: Express Care Visit Vital Signs Vital signs: Vital Signs Temperature 36.3 C L 10/02/24 10:18 Pulse Rate 96 10/02/24 10:18 Respiratory Rate 16 10/02/24 10:18 Blood Pressure 134/81 10/02/24 10:18 Pulse Oximetry 96 10/02/24 10:18 Oxygen Delivery Room Air 10/02/24 10:18 Temperature 36.3 C L 10/02/24 10:18 Pulse Rate 96 10/02/24 10:18 Respiratory Rate 16 10/02/24 10:18 Blood Pressure 134/81 10/02/24 10:18 Pulse Oximetry 96 10/02/24 10:18 Oxygen Delivery Room Air 10/02/24 10:18 Reviewed MDM - Wound/Laceration Differential Diagnosis Differential diagnosis: Likely other (evaluation of burn to left forearm, dressing change and wound cleansing, URI symptoms, cough) Medical Records Attestation: I reviewed the patient's medical records. Critical Care Time Critical Care Time Critical Care Time: No Discharge Plan Discharge Clinical Impression: URI with cough and congestion Burn of forearm, left, second degree Qualifiers: Encounter type: subsequent encounter Qualified Code(s): T22.212D - Burn of second degree of left forearm, subsequent encounter Patient Disposition: Home, Self-Care Condition: Stable Instructions: Antibiotic Form, Acute Wounds (ED) Additional Instructions: Cleanse burn to left inner forearm daily using liquid Dial soap and rinse well apply bacitracin ointment and Telfa over wound, some rolled gauze and Coban to secure. watch for any infection--redness, swelling, drainage Tylenol or Ibuprofen for pain follow up with PCP in 7-10 days for a wound check, call and set up appointment recheck if develop fever, chills, increasing symptom Go to the ER if your symptoms become worse of if ANY new symptoms develop Increase fluids especially juices and water [id number] cough and cold medicine of your choice for your symptoms Continue your inhaler/nebulizer as directed heat to the face 20-30 minutes 4-6 times a day for pain Salt water gargles, throat lozenges or throat sprays as desired Antibiotic as directed--finished the medication Zyrtec, Claritin or Bailee and include Coricidin decongestant If your symptoms persist, change or worsen significantly before you can contact your personal physician then please, without delay, go to the emergency department for further evaluation. Follow-up with PCP in 7-10 days or sooner if needed Follow up with PCP soon in regards to your blood pressure which is elevated above threshold for referral. Blood pressure above 120/80 may indicate pre-hypertension. 134/81 Patient Language: Slovak Prescriptions: New cephalexin 500 mg capsule 500 mg PO Q8H Qty: 21 0RF No Action levothyroxine 175 mcg tablet 175 mcg PO DAILY lisinopril 20 mg tablet 20 mg PO DAILY clonazepam 1 mg tablet 1 mg PO DIRECTED carbamazepine 200 mg tablet 200 mg PO DIRECTED furosemide 20 mg tablet 20 mg PO DAILY losartan 100 mg tablet 100 mg PO DAILY naproxen 500 mg tablet 500 mg PO BID desvenlafaxine succinate 50 mg tablet extended release 24 hr 50 mg PO DAILY hydrocodone-acetaminophen 10-325 mg tablet See Rx Instructions .ROUTE .COMPLEX PRN (Reason: Pain) Rx Instructions: as prescribed albuterol sulfate 2.5 mg /3 mL (0.083 %) solution for nebulization 2.5 mg inhalation Q4-6H PRN (Reason: shortness of breath or wheezing) Qty: 90 0RF carisoprodol 350 mg tablet atorvastatin 40 mg tablet ibuprofen 800 mg tablet ondansetron HCl 8 mg tablet amlodipine 5 mg tablet mirtazapine 15 mg tablet albuterol sulfate 90 mcg/actuation HFA aerosol inhaler INHALATION propranolol 20 mg tablet dicyclomine 10 mg capsule Trelegy Ellipta 100-62.5-25 mcg blister with device INHALATION cephalexin 500 mg capsule 500 mg PO Q8H Qty: 21 0RF bacitracin 500 unit/gram ointment 1 applic topical DAILY Qty: 28 1RF Rx Instructions: apply to burn area daily hydrocodone-acetaminophen 7.5-325 mg tablet 1 tablet PO Q8H PRN (Reason: pain) Qty: 10 0RF naloxone [Narcan] 4 mg/actuation spray,non-aerosol 1 spray intranasal Q3M Qty: 1 0RF Rx Instructions: spray 1 dose into ONE nostril; alternate nostrils w each dose until help arrives Follow-up/Referrals: Jose D,MD Stephen [Primary Care Provider] - Time of Disposition: 10:45 Quality [place] Coma Scale Eyes: Open Verbal: Oriented and Alert Motor: Follows Commands [place] Coma Total Score: 15
--- OUTSIDE RECORDS SUMMARY | 2024-10-02 11:43 | XMS_ITS | Encounter Summary ---
Author Organization [facility] Address [address] [place] [address] Phone Care Team Providers Care Timber Management Technician Name Role Phone Wallace Lawson Primary Care Provider [phone] Dmitry Duffy MD Unavailable [phone] Stephen Jeffery MD Primary Care Provider [phone] Tati Child MD Unavailable [phone] Encounter Details Date Type Department Care Team (Late st Contact Info) Description 08/30/2019 Telephone [facility] [address] [place] [address] Turner Garcia, RN Social History Tobacco Use Types Packs/Day Years Used Date Smoking Tobacco: Every Day Cigarettes Alcohol Use Standard Drinks/Week Comments No 0 (1 standard drink = 0.6 oz pur e alcohol) PHQ-2 Answer Date Recorded PHQ-2 Score 4 08/10/2019 Comments No Sex and Gender Information Value Date Recorded Sex Assigned at Not on file Legal Sex Female 7:07 AM DRAFTER DETAIL Gender Identity Female 07/02/2020 2:31 PM DRAFTER DETAIL Sexual Orientation Not on file documented as of this encounter Plan of Treatment Not on file documented as of this encounter Visit Diagnoses Not on filedocumented in this encounter Additional Health Concerns Infection Onset Date Last Indicated Resolved Time COVID: Suspected 06/13/2021 06/13/2021 06/13/2021 7:32 PM DRAFTER DETAIL documented as of this encounter Care Teams Timber Management Technician Relationship Specialty Start Date End Date Wallace Lawson PA [address] [place] [address] PCP - General 01/21/17 02/18/23 Stephen Jeffery MD [address] [place] [address] PCP - General Family Medicine 02/19/23 [place] [address] [address] Surgeon Orthopedic Surgery 08/30/19 Tati Child MD [address] [place] [address] DR JACOBSON [address] [place] [address] Consulting Physician Obstetrics and Gynecology 09/12/24 documented as of this encounter
--- OUTSIDE RECORDS SUMMARY | 2024-10-02 11:43 | XMS_ITS | CONTINUITY OF CARE DOCUMENT ---
Author Name bridget gill Address Unknown Organization [facility] Address [address] [place] [address] [address] [place] [address] Phone [phone] Care Team Providers Care Armorer Technician Name Role Phone Ruben MARCUM, Sotero Unavailable [phone] BERNARDO MARSHALL Unavailable BERNARDO MARSHALL Unavailable PROBLEMS Condition Status Date Provider Notes CHEST [...] In-person encounter Office Visit Sotero Miranda MD [facility] - In-person encounter Office Visit Sotero Miranda MD [facility] Hyperlipidemia - In-person encounter Office Visit Tucker Lozada MD [facility] - In-person encounter Office Visit Sotero Miranda MD [facility] Benign neoplasm of brain - In-person encounter Office Visit Sotero Miranda MD [facility] DIZZINESS - In-person encounter Office Visit Sotero Miranda MD [facility] CHEST PAINHyperlipidemiaHTN ESSENTIALCAROTID ARTERY DISEASECVA VITAL SIGNS Date Observation Value Provider Body Mass Index (Ratio) 33.57 kg/m2 Jamel Miranda MD blood pressure, cuff size regular Henri Avalos oxygen saturation, oximetry 94 % Alma Hymanby blood pressure, diastolic 80 mm[Hg] Henri Hymanby blood pressure, systolic 140 mm[Hg] Vinicio Hymanby respiratory rate E&M 18 /min Alma Hyman pulse rate 78 /min Alma [place] blood pressure, resting Yes Rodolfo mena Robbie weight E&M 208 [lb_av] Alma [place] height E&M 66 [in_i] Alma Hymanby blood pressure, diastolic 92 mm[Hg] Az chino Berry blood pressure, systolic 144 mm[Hg] [...] Range Interpretation Location platelet count 314 10*3/mm3 [facility] hematocrit, blood 38.0 % [facility] international normalized ratio (INR) 1.07 [facility] thyroid stimulating hormone, serum <0.04 [facility] B-type natriuretic peptide 9 pg/mL [facility] alanine aminotransferase (SGPT), serum 14 1/L [facility] aspartate aminotransferase (SGOT), serum 37 1/L [facility] creatinine, serum 0.78 mg/dL [facility] potassium, serum 3.5 mmol/L [facility] sodium, serum 142 mmol/L Johnny Goldman [...] Payer name Policy type / Coverage type Queen red green party ID [facility] Medicaid 0 [id number] [place] Medicare [id number] TREATMENT PLAN Date Name Performer Cardiology Sotero [...] Hem/Onc: O rders: 9 9243 LTD Complex (CPT-21673) Tucker Lozada MD Hem/Onc:I have revie wed records from Dr. Centeno's office. It appears that the 'brain tumor' was actually misread. 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 No further follow up necessary. O rders: 9 9243 LTD Complex (CPT-29167) Tucker Lozada MD Cardiology Sotero Miranda MD [...] 2 tabs hs daily Orders: E KG (CPT-[id number]) Sotero Miranda MD follow up: H er [...] ..... 1 tab daily Orders: E KG (CPT-51535) S TR - Adenosine (79621) Sotero Miranda MD Date Name Stress Regadenoson Carotid Duplex Bilat eral Complete Echo Stress Regadenoson Carotid Duplex Bilat eral Complete Echo STR - Adenosine HISTORY OF PROCEDURES Procedure Date Procedure Name Provider Procedure Notes S tatus EKG Sotero Miranda MD complete d SNOMED-CT: 035272556 408613 Current Medications Documented Tucker Lozada MD completed SNOMED-CT: 714178618 Smoking Cessation Counseling Sotero Miranda MD completed EKG Sotero Miranda MD complete d SNOMED-CT: 954524602 063570 Current Medications Documented Sotero Miranda MD completed EKG Sotero Miranda MD complete d EKG Sotero Miranda MD complete d
--- OUTSIDE RECORDS SUMMARY | 2024-10-02 11:43 | XMS_ITS | Referral Summary ---
Author Organization [facility] Address [address] [place] [address] Care Team Providers Care Cosmetic Sales Advisor Name Role Phone Dmitry Duffy MD Unavailable [phone] Stephen Jeffery MD Primary Care Provider [phone] Tati Child MD Unavailable [phone] Encounters Date Type Department Care Team Description 09/27/2024 Telephone [facility] [address] [address] Stephen Jeffery MD Symptom Based Call 09/25/2024 Nurse Triage [facility] [address] [address] Stephen Jeffery MD 09/11/2024 Telephone [facility] [address] [address] Stephen Jeffery MD Forms Request 09/07/2024 4:00 PM SOCIAL MEDIA EXECUTIVE Office Visit [facility] [address] [facility] [address] [place] [address] Tati Child MD Cervical mass (Primary Dx) 08/02/2024 10:15 AM SOCIAL MEDIA EXECUTIVE Office Visit [facility] [address] [address] Stephen Jeffery MD Immunization due (Primary Dx); Nonintractable epilepsy without status epilepticus, unspecified epilepsy type (HCC); Chronic obstructive pulmonary disease, unspecified COPD type (HCC); Anxiety with depression; Primary hypertension 07/26/2024 Hospital Encounter [facility] [address] [place] [address] Flakita Downs MD 07/25/2024 Telephone [facility] [address] [place] [address] Danay Nelson MA 07/25/2024 Documentation [facility] [address] [place] [address] Danay Nelson MA 07/19/2024 10:00 AM SOCIAL MEDIA EXECUTIVE Ancillary Procedure [facility] [place] [phone] Cervical mass 07/18/2024 Nurse Triage [facility] [address] [phone] Stephen Jeffery MD 07/06/2024 Telephone [facility] [address] [place] [phone] Wendie Zhang NP Pelvic U/S from Last [...] dry mouth, hives and very hungry Morphine [place] Flavor Unknown 08/24/2019 Oxycodone Stomach upset High [...] nightly AND 1 tablet (200 mg total) marketing planning manager before breakfast. 270 tablet 3 01/31/20 24 [...] 1 TABLET (200 MCG TOTAL) BY MOUTH WELDER APPRENTICE BEFORE BREAKFAST 90 tablet 3 04/21/20 24 [...] 90 tablet 3 07/14/19 24 025 Discontinued ibuprofen (ADVIL,MOTRIN ) 800 mg [...] Active Problems Problem Noted Date Diagnosed Date Cervical mass 09/27/2024 Assessment & Plan (09/27/2024 10:10 PM CDT): I dont feel anything today The pt very much wants hysterectomy as she has had several other cancers and is worried. I am not sure she is medically stable for surgery here especially as the mass seems stable. I will discuss this with Dr. Jeffery and with anesthesia. History of CVA (cerebrovascular accident) 2023 Assessment [...] (04/10/2022): Added automatically from request for surgery [id number] Bowel habit changes 04/10/2022 Overview (04/10/2022): Added automatically from request for surgery [id number] Colon cancer screening 04/10/2022 Overview (04/10/2022): Added automatically from request for surgery [id number] Assessment & Plan (10/19/2023 3:23 PM CDT): Recommend colonoscopy for CRC screening Abdominal pain 04/10/2022 Overview (04/10/2022): Added automatically from request for surgery [id number] Weight loss 04/10/2022 Overview (04/10/2022): Added automatically from request for surgery [id number] Assessment & Plan (02/29/2024 12:11 PM CDT): Unintentionally. 2/2 grief. Plan: See A&P for DEE CVA (cerebral vascular accident) 11/12/2021 Assessment & Plan (10/19/2023 3:24 PM CDT): Stable, generally well controlled; no significant residual deficits; no recurrent episodes Continue atorvastatin 40 mg daily; patient can not tolerate aspirin due to allergies Assessment & Plan (08/11/2023 4:54 PM SOCIAL MEDIA EXECUTIVE): MRI demonstrates no mass in the brain; [...] 02/27/2020 Assessment & Plan (08/11/2023 4:54 PM SOCIAL MEDIA EXECUTIVE): Not well controlled; continues to have pain in thoracic and low back Using ibuprofen 600 mg; no relief with Flexeril; patient does not want to use any narcotic pain medication Patient has multiple responsibilities including need to picker/puller and move Continue ibuprofen 600 mg t.i.d.; will start Soma 350 mg t.i.d. Follow-up on response to current medications Patient given home exercises for thoracic back pain Assessment & Plan (07/14/2023 4:54 PM SOCIAL MEDIA EXECUTIVE): Not well controlled; continues have significant low [...] 10/11/2016 Assessment & Plan (08/02/2024 4:23 PM SOCIAL MEDIA EXECUTIVE): Complicated by grief, patient has been engaging [...] q.i.d. Assessment & Plan (08/11/2023 4:54 PM SOCIAL MEDIA EXECUTIVE): Not well controlled, has been taking stressors; has been has worsening dementia requiring increased care Continue clonazepam 1 mg q.i.d. Assessment & Plan (07/14/2023 4:55 PM SOCIAL MEDIA EXECUTIVE): Not well controlled, worsening; patient is somewhat [...] 10/11/2016 Assessment & Plan (08/02/2024 4:23 PM SOCIAL MEDIA EXECUTIVE): Stable, well controlled, breathing well; continue Trelegy [...] 05/28/2016 Assessment & Plan (08/11/2023 4:53 PM SOCIAL MEDIA EXECUTIVE): Not well controlled, continues to have significant headaches; no relief with you Ruperto urine Zyrtec in the past Continue Tegretol 200 mg b.i.d., atenolol 50 mg daily Continue desk venlafaxine 50 mg daily Would recommend referral to neurology if no improvement Assessment & Plan (07/14/2023 4:53 PM SOCIAL MEDIA EXECUTIVE): Not well controlled, has been having daily headaches, worse 1st thing in the morning; not responsive to migraine medications Patient has history of intracranial tumor; will repeat imaging to evaluate if patient continues to have growth of tumor, or other causes of intractable headaches Assessment & Plan (04/13/2023 10:45 AM CDT): [facility] [...] 11/20/2014 Assessment & Plan (08/02/2024 4:24 PM SOCIAL MEDIA EXECUTIVE): Stable, well controlled, blood pressure at goal; [...] daily Assessment & Plan (08/11/2023 4:53 PM SOCIAL MEDIA EXECUTIVE): Not well controlled, blood pressure elevated today; [...] Epilepsy Assessment & Plan (08/02/2024 4:23 PM SOCIAL MEDIA EXECUTIVE): Stable, well controlled, no seizures or symptoms [...] hurting ever since Obtain lumbar x-ray at [facility] will follow up with results Acute kidney [...] week 02/19/2023 How often do you attend [facility] or alevism services? Never 02/19/2023 Do you belong to any clubs o r organizations such as jew groups, unions, fraternal or athletic groups, or [...] staff should administer the PHQ-9) 0 10/13/2023 [facility]ational Stress Questionnaire Answer [...] place to sleep or slept in a residential (including now)? No 02/19/2023 Personal Safety Answer Date Recorded Have you ever been in or are you currently in a harmful physical or emotional relationship or is someone making you feel afraid or unsafe? Denies 11/20/2023 Comments No Sex and Gender Information Value Date Recorded Sex Assigned at Not on file Legal Sex Female 7:07 AM SOCIAL MEDIA EXECUTIVE Gender Identity Female 07/02/2020 2:31 PM SOCIAL MEDIA EXECUTIVE Sexual Orientation Not on file Last Filed Vital Signs Vital Sign Reading Time Taken Comments Blood Pressure 130/82 09/07/2024 3:57 PM SOCIAL MEDIA EXECUTIVE Pulse 75 08/02/2024 10:21 AM SOCIAL MEDIA EXECUTIVE Temperature 36.4 C (97.5 F) 08/02/2024 10:21 AM SOCIAL MEDIA EXECUTIVE Respiratory Rate 18 08/02/2024 10:21 AM SOCIAL MEDIA EXECUTIVE Oxygen Saturation 99% 08/02/2024 10:21 AM SOCIAL MEDIA EXECUTIVE Inhaled Oxygen Concentration - - Weight 69.4 kg (153 lb) 09/07/2024 3:57 PM SOCIAL MEDIA EXECUTIVE Height 165.1 cm (5' 5 ) 09/07/2024 3:57 PM SOCIAL MEDIA EXECUTIVE Body Mass Index 25.46 09/07/2024 3:57 PM SOCIAL MEDIA EXECUTIVE Plan of Treatment Not on file Goals Goal Patient Goal Type Associated Problems Recent Progress Patient-Stated? Author [facility] On track( 021 1:17 PM SOCIAL MEDIA EXECUTIVE) No Tracy Roblero, RN Note: Patient will establish a comfort-function goal and identify the pain level that will allow the patient to perform desired activities and achieve an acceptable quality of life. Medical Devices Implanted Type Area Riprap Placer Device Identifier Shelf Expiration Date Model / Serial / Lot Lifenet [id number] Vivigen Allograft Graft 5 Cc Bone Cortical Cancellous; Deminerali - [id number] - [id number] Implanted:Qty: 1 on 08/28/2019 by Dmitry Duffy MD at [facility] N/A: Spine Lumbar Lifenet 03/22/2020 -[id number] / [id number] / Depuy Spine [id number] Concorde [id number] Radiopaque 5d Lordotic Bullet Nose Cage Spinal Latex Free - [id number] Implanted:Qty: 2 on 08/28/2019 by Dmitry Duffy MD at [facility] N/A: Spine Lumbar Depuy Spine [id number] / / Depuy Synthes Spine [id number] Viper Prime 6mm 45mm Polyaxial Extend Tab Spine Screw Bone - [id number] Implanted:Qty: 4 on 08/28/2019 by Dmitry Duffy MD at [facility] N/A: Spine Lumbar Depuy Synthes Spine [id number] / / Depuy Spine [id number] Viper 2 40mm Lordotic Pavan Spinal Titanium Mis - [id number] Implanted:Qty: 2 on 08/28/2019 by Dmitry Duffy MD at [facility] N/A: Spine Lumbar Depuy Spine [id number] / / Depuy Spine [id number] 5.5mm 1 Inner Spine Screw Set Titanium Nonsterile Viper - [id number] Implanted:Qty: 4 on 08/28/2019 by Dmitry Duffy MD at [facility] N/A: Spine Lumbar Depuy Spine [id number] / / Procedures Procedure Name Priority Date/Time Associated Diagnosis Comments US TRANSVAGINAL Routine 07/19/2024 10:57 AM SOCIAL MEDIA EXECUTIVE Cervical mass PAP AND HPV, REFLEX TO HPV GENOTYPES Routine 12/27/2023 2:53 PM CDT Well woman exam HEPATITIS C ANTIBODY Routine 05/06/2023 3:07 PM CDT Need for hepatitis C screening test COLONOSCOPY 04/28/2022 11:23 AM CDT from Last 3 Months or Most Recently Relevant to Health Maintenance Results * US Transvaginal (07/19/2024 10:57 AM SOCIAL MEDIA EXECUTIVE) Cul de Sac No free fluid visualized VIEWPOINT Endometrial Thickness 2.8 mm&millim eters VIEWPOINT Anatomical Region Laterality Modality Pelvis N/A Ultrasound 07/19/2024 10:3 8 AM SOCIAL MEDIA EXECUTIVE Impressions 07/31/2024 2:56 PM SOCIAL MEDIA EXECUTIVE 1. There is a normal-sized uterus without [...] appear within normal limits. us Wendie Zhang BOOKING POLICE OFFICER IMG US PROCEDURES Final Res ult * Pap and HPV, reflex to HPV Genotypes (12/27/2023 2:53 PM CDT) CLINICAL INFORMATION: [facility] Comment:None given LMP [facility] Comment:None given Previous Pap [facility] Comment:None given Prev. Bx [facility] Comment:None given SOURCE: [facility] Comment:Cervix, Endocervix Pap, specimen adequacy [facility] Comment: Satisfactory for evaluation. Endocervical/transformation zone component absent. Age and/or menstrual status not provided HPV interp [facility] Comment: Cytology Results: Negative for intraepithelial lesion or malignancy. COMMENTS [facility] Comment: This Pap test has been evaluated with computer assisted technology. Account General Manager [facility] Comment: ANDRZEJ REECE(ASCP) CT Screening Location: [place] [address] [place] [address] Comment [facility] Comment: EXPLANATORY NOTE: The Pap [...] High Risk E6/E7 Not Detected NOT DETECTED Tania Calderon /Korey CORLEY Comment: Not Detected High Risk HPV types (16,18,31,33,35,39,45,51,52, 56,58,59,66,68) were not detected. Other HPV types which cause anogenital lesions may be present. The significance of the other types of HPV in malignant processes has not been established. Methodology: Real Time PCR Thin prep 12/27/2023 2:53 PM CDT 12/28/2023 1:30 AM CDT us Wendie Zhang BOOKING POLICE OFFICER LAB CYTOLOGY ORDERABLES Fin al Result [place] [address] [place] [address] Tania Calderon/[place] [address] [place] [address] * Hepatitis C antibody Blood (05/06/2023 3:07 [...] last revised on 2019. Testing performed by: [facility], [address] [place] [address]., [address] Blood 05/06/2023 3:07 PM CDT 05/07/2023 7:45 AM CDT Henrietta Sinha NP LAB MICROBIOLOGY - GENERAL ORDER SWATHI Final Result SEJAL MYRON (PEPPER) [address] [facility] Department [place] [address] * COLONOSCOPY (04/28/2022 11:23 AM CDT) Anatomical Region Laterality Modality Other Narrative Procedure Note Flakita Downs MD - 04/28/2022 11:23 AM CDT [facility] Patient Name: Leeann Mejia Procedure Date: 04/28/2022 11:23AM Date of : 1965 Admit Type: Outpatient Age: 56 Gender: Female Attending MD: Flakita Downs M.D. Room: [facility] ENDOSCOPY ROOM 1 Note Status: Finalized Patient [...] retrieved. Clip (MR conditional) was placed. Clipmanufacturer: [employer]. - Eleven 5 to 14 mm polyps [...] under direct vision. The Pediatric Colonoscope [id number]-[id number] was introducedthrough the anus and advanced to [...] clip was successfully placed (MR conditional). Clip communications scientist: [employer]. Therewas no bleeding at the end of [...] 11:23 AM Procedure Code(s): --- Professional --- 40030, Colonoscopy, flexible; with removal of tumor(s), polyp(s), or other lesion(s) by snare technique 69941, 59, Colonoscopy, flexible; with biopsy, single or multiple Diagnosis Code(s): --- Professional --- K64.8, Other hemorrhoids D12.4, Benign neoplasm of descending colon D12.5, Benign neoplasm of sigmoid colon K52.9, Noninfective gastroenteritis and colitis, unspecified CPT copyright 2020 [employer]. All rights reserved. The codes documented in this report are preliminary and upon marriage and family therapist reviewmay be revised to meet current compliance requirements. Recognized by the [employer] for promoting quality in endoscopy Flakita Downs MD ENDOSCOPY PROCEDURES Final Result from Last 3 Months or Most Recently Relevant to Health Maintenance Insurance MEDICARE IDPA MEDICARE IDPA AETNA [facility] [place] [address] MEDICARE IDPA Advance Directives For more information, please contact: [phone] * Full Code (Latest Code Status on [...] 6:23 PM 08/28/2019 3:42 PM Care Teams Cosmetic Sales Advisor Relationship Specialty Start Date End Date Stephen Jeffery MD [address] [place] [address] PCP - General Family Medicine 02/19/23 [place] [address] [address] Surgeon Orthopedic Surgery 08/30/19 Tati Child MD [address] [place] [address] DR JACOBSON [facility] [place] [address] Consulting Physician Obstetrics and Gynecology 09/12/24
--- OUTSIDE RECORDS SUMMARY | 2024-10-02 11:43 | XMS_ITS | Encounter Summary ---
Author Organization [facility] Address [address] [place] [address] Care Team Providers Care Soldering Inspector Name Role Phone Wallace Lawson Primary Care Provider [phone] Dmitry Duffy MD Unavailable [phone] Stephen Jeffery MD Primary Care Provider [phone] Tati Child MD Unavailable [phone] Encounter Details Date Type Department Care Team (Late st Contact Info) Description 05/31/2020 Telephone [facility] [address] [place] [address] Miuqel Peter, RT Social History Tobacco Use Types Packs/Day Years Used Date Smoking Tobacco: Every Day Cigarettes Smokeless Tobacco: Never Alcohol Use Standard Drinks/Week Comments No 0 (1 standard drink = 0.6 oz pur e alcohol) PHQ-2 Answer Date Recorded PHQ-2 Score 2 05/21/2020 Comments No Sex and Gender Information Value Date Recorded Sex Assigned at Not on file Legal Sex Female 7:07 AM CASE CONSULTANT Gender Identity Female 07/02/2020 2:31 PM CASE CONSULTANT Sexual Orientation Not on file documented as of this encounter Plan of Treatment Not on file documented as of this encounter Visit Diagnoses Not on filedocumented in this encounter Additional Health Concerns Infection Onset Date Last Indicated Resolved Time COVID: Suspected 06/13/2021 06/13/2021 06/13/2021 7:32 PM CASE CONSULTANT documented as of this encounter Care Teams Soldering Inspector Relationship Specialty Start Date End Date Wallace Lawson PA [address] [place] [address] PCP - General 01/21/17 02/18/23 Stephen Jeffery MD [address] [place] [address] PCP - General Family Medicine 02/19/23 [place] [address] [address] Surgeon Orthopedic Surgery 08/30/19 Tati Child MD [address] [place] [address] DR JACOBSON [address] [place] [address] Consulting Physician Obstetrics and Gynecology 09/12/24 documented as of this encounter
--- OUTSIDE RECORDS SUMMARY | 2024-10-02 11:43 | XMS_ITS | Clinical Summary ---
Author Organization [facility] Address [address] [place] [address] Care Team Providers Care Gas Regulator Repairer Helper Name Role Phone Dmitry Duffy MD Unavailable [phone] Stephen Jeffery MD Primary Care Provider [phone] aTti Child MD Unavailable [phone] Allergies Active Allergy Reactions Criticality Noted Date [...] dry mouth, hives and very hungry Morphine Keasbey Flavor Unknown 08/24/2019 Oxycodone Stomach upset High [...] nightly AND 1 tablet (200 mg total) ldr nurse before breakfast. 270 tablet 3 01/31/20 24 [...] 1 TABLET (200 MCG TOTAL) BY MOUTH REMOTE PILOT OPERATOR BEFORE BREAKFAST 90 tablet 3 04/21/20 [...] (04/10/2022): Added automatically from request for surgery [id number] Bowel habit changes 04/10/2022 Overview (04/10/2022): Added automatically from request for surgery [id number] Colon cancer screening 04/10/2022 Overview (04/10/2022): Added automatically from request for surgery [id number] Assessment & Plan (10/19/2023 3:23 PM CDT): Recommend colonoscopy for CRC screening Abdominal pain 04/10/2022 Overview (04/10/2022): Added automatically from request for surgery [id number] Weight loss 04/10/2022 Overview (04/10/2022): Added automatically from request for surgery [id number] Assessment & Plan (02/29/2024 12:11 PM CDT): Unintentionally. 2/2 grief. Plan: See A&P for DEE CVA (cerebral vascular accident) 11/12/2021 Assessment & Plan (10/19/2023 3:24 PM CDT): Stable, generally well controlled; no significant residual deficits; no recurrent episodes Continue atorvastatin 40 mg daily; patient can not tolerate aspirin due to allergies Assessment & Plan (08/11/2023 4:54 PM METEOROLOGY PROFESSOR): MRI demonstrates no mass in the brain; [...] 02/27/2020 Assessment & Plan (08/11/2023 4:54 PM METEOROLOGY PROFESSOR): Not well controlled; continues to have pain in thoracic and low back Using ibuprofen 600 mg; no relief with Flexeril; patient does not want to use any narcotic pain medication 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 Follow-up on response to current medications Patient given home exercises for thoracic back pain Assessment & Plan (07/14/2023 4:54 PM METEOROLOGY PROFESSOR): Not well controlled; continues have significant low [...] 10/11/2016 Assessment & Plan (08/02/2024 4:23 PM METEOROLOGY PROFESSOR): Complicated by grief, patient has been engaging [...] q.i.d. Assessment & Plan (08/11/2023 4:54 PM METEOROLOGY PROFESSOR): Not well controlled, has been taking stressors; has been has worsening dementia requiring increased care Continue clonazepam 1 mg q.i.d. Assessment & Plan (07/14/2023 4:55 PM METEOROLOGY PROFESSOR): Not well controlled, worsening; patient is somewhat [...] 10/11/2016 Assessment & Plan (08/02/2024 4:23 PM METEOROLOGY PROFESSOR): Stable, well controlled, breathing well; continue Trelegy [...] 05/28/2016 Assessment & Plan (08/11/2023 4:53 PM METEOROLOGY PROFESSOR): Not well controlled, continues to have significant headaches; no relief with you Ruperto urine Zyrtec in the past Continue Tegretol 200 mg b.i.d., atenolol 50 mg daily Continue desk venlafaxine 50 mg daily Would recommend referral to neurology if no improvement Assessment & Plan (07/14/2023 4:53 PM METEOROLOGY PROFESSOR): Not well controlled, has been having daily headaches, worse 1st thing in the morning; not responsive to migraine medications Patient has history of intracranial tumor; will repeat imaging to evaluate if patient continues to have growth of tumor, or other causes of intractable headaches Assessment & Plan (04/13/2023 10:45 AM CDT): Patient states that the Nurtec is no longer helping with her headaches [...] 11/20/2014 Assessment & Plan (08/02/2024 4:24 PM METEOROLOGY PROFESSOR): Stable, well controlled, blood pressure at goal; [...] daily Assessment & Plan (08/11/2023 4:53 PM METEOROLOGY PROFESSOR): Not well controlled, blood pressure elevated today; [...] Epilepsy Assessment & Plan (08/02/2024 4:23 PM METEOROLOGY PROFESSOR): Stable, well controlled, no seizures or symptoms [...] hurting ever since Obtain lumbar x-ray at [facility] will follow up with results Acute [...] Team Description 09/27/2024 Telephone [facility] [address] [address] Stephen Jeffery MD Symptom Based Call 09/25/2024 Nurse Triage [facility] [address] [address] Stephen Jeffery MD 09/11/2024 Telephone [facility] [address] [phone] Stephen Jeffery MD Forms Request 09/07/2024 4:00 PM METEOROLOGY PROFESSOR Office Visit [facility] [address] [address] [place] [address] Tati Child MD Cervical mass (Primary Dx) 08/02/2024 10:15 AM METEOROLOGY PROFESSOR Office Visit [facility] [address] [address] Stephen Jeffery MD Immunization due (Primary Dx); Nonintractable epilepsy without status epilepticus, unspecified epilepsy type (HCC); Chronic obstructive pulmonary disease, unspecified COPD type (HCC); Anxiety with depression; Primary hypertension 07/26/2024 Hospital Encounter [facility] 1 [place] [address] Flakita Downs MD 07/25/2024 Telephone [facility] at [address] [place] [address] Danay Nelson MA 07/25/2024 Documentation [facility] at [address] [place] [address] Danay Nelson MA 07/19/2024 10:00 AM METEOROLOGY PROFESSOR Ancillary Procedure [place] [address] [place] [address] Cervical mass 07/18/2024 Nurse Triage [facility] [place] [address] [place] [address] Stephen Jeffery MD 07/06/[address] [place] [address] Wendie Zhang, JODI Pelvic U/S from Last 3 Months Immunizations [...] Site/Laterality Comments OTHER SURGICAL HISTORY Cholecystitis: Cholecystectomy MI CHOLECYSTECTOMY Cholecystectomy - (Added by TW Conv) MI CAUTERY CERVIX LASER ABLATION Laser Ablation Of Cervix - (Added by TW Conv) SPINAL FUSION Spinal Arthrodesis - (Added by TW Conv) MI EXC CYST/ABERRANT BREAST TISSUE OPEN 1/> LESION Breast Surgery Lumpectomy - (Added by TW Conv) BREAST RECONSTRUCTION Breast Reconstruction With Implant Prosthesis - (Added by ZENA Goldman) ABLATION Uterus SECTION CATARACT EXTRACTION Right COLONOSCOPY [...] often do you attend chur ch or scientologist services? Never 02/19/2023 Do you belong to any clubs o r organizations such as yazidism groups, unions, fraternal or athletic groups, or [...] staff should administer the PHQ-9) 0 10/13/2023 [facility] - [...] place to sleep or slept in a long-term (including now)? No 02/19/2023 Personal Safety Answer Date Recorded Have you ever been in or are you currently in a harmful physical or emotional relationship or is someone making you feel afraid or unsafe? Denies 11/20/2023 Comments No Sex and Gender Information Value Date Recorded Sex Assigned at Not on file Legal Sex Female 7:07 AM METEOROLOGY PROFESSOR Gender Identity Female 07/02/2020 2:31 PM METEOROLOGY PROFESSOR Sexual Orientation Not on file Obstetrics History [...] Comments Blood Pressure 130/82 09/07/2024 3:57 PM METEOROLOGY PROFESSOR Pulse 75 08/02/2024 10:21 AM METEOROLOGY PROFESSOR Temperature 36.4 C (97.5 F) 08/02/2024 10:21 AM METEOROLOGY PROFESSOR Respiratory Rate 18 08/02/2024 10:21 AM METEOROLOGY PROFESSOR Oxygen Saturation 99% 08/02/2024 10:21 AM METEOROLOGY PROFESSOR Inhaled Oxygen Concentration - - Weight 69.4 kg (153 lb) 09/07/2024 3:57 PM METEOROLOGY PROFESSOR Height 165.1 cm (5' 5 ) 09/07/2024 3:57 PM METEOROLOGY PROFESSOR Body Mass Index 25.46 09/07/2024 3:57 PM METEOROLOGY PROFESSOR Plan of Treatment Health Maintenance Due Date [...] Behavioral Health On track( 021 1:17 PM METEOROLOGY PROFESSOR) Tracy Ricardo, RN Note: Patient will establish a comfort-function goal and identify the pain level that will allow the patient to perform desired activities and achieve an acceptable quality of life. Medical Devices Implanted Type Area Rn Otolaryngology Device Identifier Shelf Expiration Date Model / Serial / Lot Lifenet [id number] Vivigen Allograft Graft 5 Cc Bone Cortical Cancellous; Deminerali - [id number] - [id number] Implanted:Qty: 1 on 08/28/2019 by Dmitry Duffy MD at [facility] N/A: Spine Lumbar Lifenet 03/22/2020 [id number] / [id number] / Depuy Spine [id number] Concorde [id number] Radiopaque 5d Lordotic Bullet Nose Cage Spinal Latex Free - [id number] Implanted:Qty: 2 on 08/28/2019 by Dmitry Duffy MD at [facility] N/A: Spine Lumbar Depuy Spine [id number] / / Depuy Synthes Spine [id number] Viper Prime 6mm 45mm Polyaxial Extend Tab Spine Screw Bone - [id number] Implanted:Qty: 4 on 08/28/2019 by Dmitry Duffy MD at [facility] N/A: Spine Lumbar Depuy Synthes Spine [id number] / / Depuy Spine [id number] Viper 2 40mm Lordotic Pavan Spinal Titanium Mis - [id number] Implanted:Qty: 2 on 08/28/2019 by Dmitry Duffy MD at [facility] N/A: Spine Lumbar Depuy Spine [id number] / / Depuy Spine [id number] 5.5mm 1 Inner Spine Screw Set Titanium Nonsterile Viper - [id number] Implanted:Qty: 4 on 08/28/2019 by Dmitry Dufyf MD at [facility] N/A: Spine Lumbar Depuy Spine [id number] / / Procedures Procedure Name Priority Date/Time Associated Diagnosis Comments US TRANSVAGINAL Routine 07/19/2024 10:57 AM METEOROLOGY PROFESSOR Cervical mass PAP AND HPV, REFLEX TO HPV GENOTYPES Routine 12/27/2023 2:53 PM CDT Well woman exam HEPATITIS C ANTIBODY Routine 05/06/2023 3:07 PM CDT Need for hepatitis C screening test COLONOSCOPY 04/28/2022 11:23 AM CDT from Last 3 Months or Most Recently Relevant to Health Maintenance Results * US Transvaginal (07/19/2024 10:57 AM METEOROLOGY PROFESSOR) Cul de Sac No free fluid visualized VIEWPOINT Endometrial Thickness 2.8 mm&millim eters VIEWPOINT Anatomical Region Laterality Modality Pelvis N/A Ultrasound 07/19/2024 10:3 8 AM METEOROLOGY PROFESSOR Impressions 07/31/2024 2:56 PM METEOROLOGY PROFESSOR 1. There is a normal-sized uterus without [...] within normal limits. us Wendie Zhang NP IMG US PROCEDURES Final Res ult * Pap and HPV, reflex to HPV Genotypes (12/27/2023 2:53 PM CDT) CLINICAL INFORMATION: [facility] Comment:None given LMP [facility] Comment:None given Previous Pap [facility] Comment:None given Prev. Bx [facility] Comment:None given SOURCE: [facility] Comment:Cervix, Endocervix Pap, specimen adequacy [facility] Comment: Satisfactory for evaluation. Endocervical/transformation zone component absent. Age and/or menstrual status not provided HPV interp [facility] Comment: Cytology Results: Negative for intraepithelial lesion or malignancy. COMMENTS [facility] Comment: This Pap test has been evaluated with computer assisted technology. Button Facing Machine Operator [facility] Comment: JAELK CT(ASCP) CT Screening Location: [place] [address], [place] [address] Comment [facility] Comment: EXPLANATORY NOTE: The Pap [...] High Risk E6/E7 Not Detected NOT DETECTED [email or web address] /Korey CORLEY Comment: Not Detected High Risk HPV types (16,18,31,33,35,39,45,51,52, 56,58,59,66,68) were not detected. Other HPV types which cause anogenital lesions may be present. The significance of the other types of HPV in malignant processes has not been established. Methodology: Real Time PCR Thin prep 12/27/2023 2:53 PM CDT 12/28/2023 1:30 AM CDT Wendie Zhang NURSE TECHNICIAN LAB CYTOLOGY ORDERABLES Fin al Result [facility] [address] [facility] [place] [address] [facility] [address] [place] [address] * Hepatitis C antibody Blood (05/06/2023 3:07 PM CDT) Hep C Ab Nonreactive Nonreactive SEJAL SANCHES (ASPEN) Comment: Interpretive Data Nonreactive: Antibodies to HCV [...] last revised on 2019. Testing performed by: [facility], [address] [place] [address], [place]., [address] Blood 05/06/2023 3:07 PM CDT 05/07/2023 7:45 AM CDT us Henrietta Sinha NP LAB MICROBIOLOGY - GENERAL ORDER SWATHI Final Result Performing Organization Address City/[facility]/ZIP Co de Phone Number SEJAL MYRON (PEPPER) [address] [facility] Department [place] [address] * COLONOSCOPY (04/28/2022 11:23 AM CDT) Anatomical Region Laterality Modality Other Narrative Procedure Note Flakita Downs MD - 04/28/2022 11:23 AM CDT [facility] Patient Name: Leeann Mejia Procedure Date: 04/28/2022 11:23AM Date of : 1965 Admit Type: Outpatient Age: 56 Gender: Female Attending MD: Flakita Downs M.D. Room: [facility] ENDOSCOPY ROOM 1 Note Status: Finalized [...] retrieved. Clip (MR conditional) was placed. Clipmanufacturer: [employer]. - Eleven 5 to 14 mm [...] under direct vision. The Pediatric Colonoscope [id number] was introducedthrough the anus and advanced to [...] clip was successfully placed (MR conditional). Clip beater dumper: Skyera. Therewas no bleeding at the end of [...] 11:23 AM Procedure Code(s): --- Professional --- 16724, Colonoscopy, flexible; with removal of tumor(s), polyp(s), or other lesion(s) by snare technique 76777, 59, Colonoscopy, flexible; with biopsy, single or multiple Diagnosis Code(s): --- Professional --- K64.8, Other hemorrhoids D12.4, Benign neoplasm of descending colon D12.5, Benign neoplasm of sigmoid colon K52.9, Noninfective gastroenteritis and colitis, unspecified CPT copyright 2020 [employer]. All rights reserved. The codes documented in this report are preliminary and upon supervisor steel division reviewmay be revised to meet current compliance requirements. Recognized by the [employer] for promoting quality in endoscopy Flakita Downs MD ENDOSCOPY PROCEDURES Final Result from Last 3 Months or Most Recently Relevant to Health Maintenance Insurance MEDICARE IDOR MEDICARE IDPA AETNA [facility] [place]UAL [place] MEDICARE [facility] Address: [address] [address] [place] [address] IDPA MEDICARE [facility] Address: [address] [address] [place] [address] IDPA Advance Directives For more information, please contact: [phone] * Full Code (Latest Code Status on [...] 6:23 PM 08/28/2019 3:42 PM Care Teams Gas Regulator Repairer Helper Relationship Specialty Start Date End Date [place] [address] PCP - General Family Medicine 02/19/23 [place] [address] [address] [place] [address] Surgeon Orthopedic Surgery 08/30/19 Tati Child MD [address] [place] [address] [address] [place] [address] Consulting Physician Obstetrics and Gynecology 09/12/24
--- OUTSIDE RECORDS SUMMARY | 2024-10-02 11:43 | XMS_ITS | Encounter Summary ---
Author Organization [facility] Address [address] [place] [address] Care Team Providers Care Roll Forming Machine Operator Name Role Phone Wallace Lawson Primary Care Provider [phone] Dmitry Duffy MD Unavailable [phone] Stephen Jeffery MD Primary Care Provider [phone] Tati Child MD Unavailable [phone] Encounter Details Date Type Department Care Team (Late st Contact Info) Description 10/21/2020 Telephone [facility] 1 [place] [address] Chula Maharaj, RT Social History Tobacco Use [...] on file Legal Sex Female 7:07 AM DICE MAKER Gender Identity Female 07/02/2020 2:31 PM DICE MAKER Sexual Orientation Not on file documented as of this encounter Plan of Treatment Not on file documented as of this encounter Goals Goal Patient Goal Type Associated Problems Recent Progress Patient-Stated? Author BH-Pain Behavioral Health On track( 021 1:17 PM DICE MAKER) No Tracy Roblero, RN Note: Patient will establish a comfort-function goal and identify the pain level that will allow the patient to perform desired activities and achieve an acceptable quality of life. documented as of this encounter Visit Diagnoses Not on filedocumented in this encounter Additional Health Concerns Infection Onset Date Last Indicated Resolved Time COVID: Suspected 06/13/2021 06/13/2021 06/13/2021 7:32 PM DICE MAKER documented as of this encounter Care Teams Roll Forming Machine Operator Relationship Specialty Start Date End Date Wallace Lawson PA [address] [place] [address] PCP - General 01/21/17 02/18/23 Stephen Jeffery MD [address] [place] [address] PCP - General Family Medicine 02/19/23 [place] [address] [address] Surgeon Orthopedic Surgery 08/30/19 Tati Child MD [address] [place] [address] [address] [place] [address] Consulting Physician Obstetrics and Gynecology 09/12/24 documented as of this encounter
--- OUTSIDE RECORDS SUMMARY | 2024-10-02 11:43 | XMS_ITS | Clinical Summary ---
Author Organization [facility] Address [address] [place] [address] Phone Care Team Providers Care Stereoptic Projection Topographer Name Role Phone Wallace Lawson Primary Care Provider [phone] Allergies Active Allergy Reactions Criticality Noted Date [...] Screening 1965 TdaP Immunization 1965 Mammogram 1974 Pap Smear 1985 Cervical Cancer Screening (CCS) 1994 HPV/Cotest 1994 Cologuard 2014 Immunochemical Fecal Occult Blood 2014 Zoster Immunization (2 of 2) 04/29/2021 03/04/2021 Pneumococcal Immunization (5 0+ years) (2 of 2 - PCV) 03/19/2023 03/19/2022 Influenza Immunization (#1) 2024 11/0 02/2017, 05/22/2015 SARS-COV-2 Immunization (3 - season) 2024 03/25/2021, 03/04/2021 Respiratory Syncytial Virus (RSV) Immunization (Adult) (1 - Risk 60-74 years 1-dose series) 2024 Colonoscopy 04/28/2032 04/28/2022 Colorectal Cancer Screening 04/28/2032 04/28/2022 Pneumococcal Immunization Combined Discontinued 03/19/2022 Hepatitis B Immunization Aged Out No longer eligible based on patient's age to complete this topic Meningococcal Immunization (ACWY) Aged Out No longer [...] measures to stabilize the patient. Care Teams Stereoptic Projection Topographer Relationship Specialty Start Date End Date Wallace Lawson, TALI [address] [place] [address] PCP - General Physician Business Services Assistant 10/10/16
--- OUTSIDE RECORDS SUMMARY | 2024-10-02 11:43 | XMS_ITS | Encounter Summary ---
Author Organization [facility] Address [address] [place] [address] Care Team Providers Care Transit Worker Name Role Phone Dmitry Duffy MD Unavailable [phone] Stephen Jeffery MD Primary Care Provider [phone] Tati Child MD Unavailable [phone] Reason for Visit * Auth/Cert (Routine) Specialty Diagnoses / Procedures Referred By Contac t Referred To Contact Diagnoses Personal history of colonic polyps Encounter for screening colonoscopy Personal history of colonic polyps [Z86.010] Encounter for screening colonoscopy [Z12.11] Procedures AR COLONOSCOPY FLX DX W/COLLJ SPEC WHEN PFRMD COLONOSCOPY Referral ID Status Reason Start Date Expiration Date Visits Re quested Visits Authorized [id number] 1 1 Encounter Details Date Type Department Care Team (Late st Contact Info) Description 07/26/2024 Hospital Encounter [facility] [address] [place] [address] Flakita Downs MD [address] [place] [address] [address] Social History Tobacco Use Types Packs/Day Years [...] How often do you attend chur or advent services? Never 02/19/2023 Do you belong to any clubs o r organizations such as latter-day groups, unions, fraternal or athletic groups, or [...] staff should administer the PHQ-9) 0 10/13/2023 [facility] - Occupational Stress [...] place to sleep or slept in a retirement (including now)? No 02/19/2023 Personal Safety Answer Date Recorded Have you ever been in or are you currently in a harmful physical or emotional relationship or is someone making you feel afraid or unsafe? Denies 11/20/2023 Comments No Sex and Gender Information Value Date Recorded Sex Assigned at Not on file Legal Sex Female 7:07 AM BOTTOM SAW OPERATOR Gender Identity Female 07/02/2020 2:31 PM BOTTOM SAW OPERATOR Sexual Orientation Not on file documented as of this encounter Plan of Treatment Not on file documented as of this encounter Goals Goal Patient Goal Type Associated Problems Recent Progress Patient-Stated? Author BH-Pain Behavioral Health On track( 021 1:17 PM BOTTOM SAW OPERATOR) No Tracy Roblero, RN Note: Patient will [...] colonoscopy documented in this encounter Care Teams Transit Worker Relationship Specialty Start Date End Date Stephen Jeffery MD [address] [place] [address] PCP - General Family Medicine 02/19/23 [place] [address] [address] Surgeon Orthopedic Surgery 08/30/19 Tati Child MD [address] [place] [address] [address] [place] [address] Consulting Physician Obstetrics and Gynecology 09/12/24 documented as of this encounter
--- OUTSIDE RECORDS SUMMARY | 2024-10-02 11:43 | XMS_ITS | Clinical Summary ---
Author Organization [facility] Address [address] [place] [address] Care Team Providers Care Reception Name Role Phone Wallace Lawson Primary Care Provider [phone] Source Comments [facility],non-owned Affiliates and Associated Physician Practices is amultiple site organization consisting of ambulatory clinics and hospital sitesin [place], [place], [place] and [place]. This disclosure is being madepursuant to the Care Everywhere program and may not contain all information available regarding this patient. Last updated 18.[facility] Medications Be aware that medications may not [...] 127 kg (280 lb) 09/18/2022 2:35 PM PRODUCT OWNER Height 166.4 cm (5' 5.5 ) 09/18/2022 2:35 PM PRODUCT OWNER Body Mass Index 45.89 09/18/2022 2:35 PM PRODUCT OWNER Plan of Treatment Health Maintenance Due Date Last Done Comments COLOGUARD (AGES 45-75) - COL ON CA SCREENING 1965 COLON MONITORING 1965 COLONOSCOPY - COLON CA SCREENING 1964 CT COLONOGRAPHY - COLON CA SCREENING 1965 Colorectal Cancer Screening 1965 FIT - COLON CA SCREENING 1965 FLEX SIG - COLON CA SCREENING 1965 MAMMOGRAM 1965 MEDICARE AWV 12 MONTHS 1965 PAP SMEAR 1965 HEPATITIS C SCREENING 09/18/1982 DTAP/TDAP/TD VACCINES (1 - Tdap) 09/23/1983 PNEUMOCOCCAL VACCINE 50+ (1 of 1 - PCV) 2014 ZOSTER VACCINE (1 of 2) 2014 SCREENING FOR DIABETES 09/18/2022 COVID-19 VACCINE (1 - 2023-2 5 season) 2024 INFLUENZA VACCINE (#1) 2024 7, 05/22/2015 DEPRESSION SCREENING 07/12/2024 Respiratory Syncytial Virus (RSV) Vaccine Pt: or over 60 yrs (1 - Risk 60-74 years 1-dose series) 2024 LIPID TESTING 07/28/2027 07/28/2022, 10/12/2016 HIV SCREENING Completed 07/29/2022 HEPATITIS B VACCINE Aged Out No longe r eligible based on patient's age to complete this topic HIB VACCINE Aged Out No longer eligi ble based on patient's age to complete this topic HPV VACCINE Aged Out No longer eligi ble based on patient's age to complete this topic MENINGOCOCCAL (Group B) VACCINE SHARED DECISION-MAKING Aged Out No longer eligible based on patient's age to complete this topic MENINGOCOCCAL GROUPS A/C/Y/W VACCINE Aged Out No longer eligible b ased on patient's age to complete this topic PNEUMOCOCCAL VACCINE Aged Out No long er eligible based on patient's age to complete this topic Care Teams Reception Relationship Specialty Start Date End Date Wallace Lawson PA [address] [place] [id number] PCP - General 07/06/19
--- OUTSIDE RECORDS SUMMARY | 2024-10-02 11:52 | XMS_ITS | CONTINUITY OF CARE DOCUMENT ---
Author Name bridget gill Address Unknown Organization [facility] Address [address] [place] [address] [address] [place] [address] Phone [phone] Care Team Providers Care Channel Cementer Outsole Machine Name Role Phone Ruben MARCUM, Sotero Unavailable BERNARDO MARSHALL Unavailable BERNARDO MARSHALL Unavailable PROBLEMS [...] In-person encounter Office Visit Sotero Miranda MD [facility] Office - In-person encounter Office Visit Sotero Miranda MD [facility] Office Hyperlipidemia - In-person encounter Office Visit Tucker Lozada MD [facility] Office - In-person encounter Office Visit Sotero Miranda MD [facility] Benign neoplasm of brain - In-person encounter Office Visit Sotero Miranda MD [facility] DIZZINESS - In-person encounter Office Visit Sotero Miranda MD [facility] CHEST PAINHyperlipidemiaHTN ESSENTIALCAROTID ARTERY DISEASECVA VITAL SIGNS Date Observation Value Provider Body Mass Index (Ratio) 33.57 kg/m2 Jamel Miranda MD blood pressure, cuff size regular Henri Avalos oxygen saturation, oximetry 94 % Alma Hymanby blood pressure, diastolic 80 mm[Hg] Henri Hymanby blood pressure, systolic 140 mm[Hg] Vinicio Hymanby respiratory rate E&M 18 /min Alma Hyman pulse rate 78 /min Alma [place] blood pressure, resting Yes Rodolfo mena Robbie weight E&M 208 [lb_av] Alma [place] height E&M 66 [in_i] Alma Hymanby blood pressure, diastolic 92 mm[Hg] Sc chino Berry blood pressure, systolic 144 mm[Hg] [...] Range Interpretation Location platelet count 314 10*3/mm3 [facility] hematocrit, blood 38.0 % [facility] international normalized ratio (INR) 1.07 [facility] thyroid stimulating hormone, serum <0.04 [facility] B-type natriuretic peptide 9 pg/mL [facility] alanine aminotransferase (SGPT), serum 14 1/L [facility] aspartate aminotransferase (SGOT), serum 37 1/L [facility] creatinine, serum 0.78 mg/dL [facility] potassium, serum 3.5 mmol/L [facility] sodium, serum 142 mmol/L [...] Payer name Policy type / Coverage type [place] red libertarian ID [facility] Medicaid 0 [id number] [place] MEDICARE Medicare [id number] TREATMENT PLAN Date Name Performer Cardiology Sotero [...] Hem/Onc: O rders: 9 [phone] LTD Complex ([id number]) Tucker Lozada MD Hem/Onc:I have revie wed records from Dr. Centeno's office. It appears that the 'brain tumor' was actually misread. 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 No further follow up necessary. O rders: 9 9243 LTD Complex ([id number]) Tucker Lozada MD Cardiology Sotero Miranda MD [...] 2 tabs hs daily Orders: E KG ([id number]) Sotero Miranda MD follow up: H er [...] ..... 1 tab daily Orders: E KG ([id number]) S TR - Adenosine ([id number]) Sotero Miranda MD Date Name Stress Regadenoson Carotid Duplex Bilat eral Complete Echo Stress Regadenoson Carotid Duplex Bilat eral Complete Echo STR - Adenosine HISTORY OF PROCEDURES Procedure Date Procedure Name Provider Procedure Notes S tatus EKG Sotero Miranda MD complete d SNOMED-CT: 161586575 [id number] Current Medications Documented Tucker Lozada MD completed SNOMED-CT: 713308356 Smoking Cessation Counseling Sotero Miranda MD completed EKG Sotero Miranda MD complete d SNOMED-CT: 627678476 444172 Current Medications Documented Sotero Miranda MD completed EKG Sotero Miranda MD complete d EKG Sotero Miranda MD complete d
== END 2024-10-02 10:50 | disposition home or self-care (01) ==
PROVIDERS: Emergency Provider Registered Nurse; PCP Hospitalist
DX: T22.212D Burn of second degree of left forearm, subsequent encounter (principal); X08.8XXD Exposure to other specified smoke, fire and flames, subsequent encounter; J06.9 Acute upper respiratory infection, unspecified; R05.9 Cough, unspecified; I10 Essential (primary) hypertension; G40.909 Epilepsy, unspecified, not intractable, without status epilepticus; J44.9 Chronic obstructive pulmonary disease, unspecified; E78.00 Pure hypercholesterolemia, unspecified; F41.9 Anxiety disorder, unspecified; F32.A Depression, unspecified; Z85.3 Personal history of malignant neoplasm of breast; F17.210 Nicotine dependence, cigarettes, uncomplicated
CPT/HCPCS: 16020; 99213; G0463

== ENCOUNTER 2025-05-19 16:07 | Emergency (ER) | payer MEDICARE, MEDICAID, SELFPAY ==
--- OUTSIDE RECORDS SUMMARY | 2012-04-07 08:30 | XMS_ITS | Continuity of Care Document ---
Author Organization [facility] Address [address] [place] [address] [place] [address] Phone Care Team Providers Care Applications Engineer Manufacturing Name Role Phone Jaun MARCUM MD, Pal Unavailable Unavailab le Allergies, Adverse Reactions, Alerts Substance Reaction Status Criticality aspirin Active No Information trimethoprim Active No Information sulfamethoxazole Active No Informat ion tetracycline Active No Information Penicillins Active No Information Medications Medication Instructions Dosage Effective Dates (start - stop) Status Comments Carbamazepine 200 mg Tab - Activ e Reading 10 mg-325 mg Tab - Active Levothyroxine 150 mcg Cap - Acti ve Zetia 10 mg Tab - Active Advance Directives Directive Yes / No Effective Date File Name Resuscitation Not Answered N/A N/A Life Support Not Answered N/A N/A Intubation Not Answered N/A N/A Antibiotics Not Answered N/A N/A IV Fluid Support Not Answered N/A N/A Tube Feed Not Answered N/A N/A Other Directive N/A N/A WARNING:The information contained in this section is historical and is provided for information only and does not constitute a legal document or any assurance that the information is still accurate. Please verify the information with the moran of the legal document before using it for clinical purposes. Encounters Encounter Description Practice Location Reason(s) For Visit Diagnoses Date Provider Providers Copied on Encounter [facility], [address] [place] [address] [address], [place], [place], [id number], [place] tel:[phone] SEC Rafael RENARD Professional No Information 2 Jaun Aguillon. [address], [address], [place], [address], [place]. tel:[phone] Family History Family Member Type Diagnosis Age At Onset No Information Payers Payer name Insurance type Covered constitution party ID Bambi garner(s) No Information Social History Type Description Quantity Date Captured Comments Alcohol Use Details No Caffeine Use Details 6 cups per day Tobacco Use Status Smoking Status No Information Sex Female Chief Complaint And Reason For Visit No Information Reason For Referral Reason For Referral No Information History Of Present Illness Encounter Date Complaint History Of Prese nt Illness No Information Functional Status Date Functional Assessmen t No Information Instructions Date Instruction Additional Infor mation No Information Assessments Type Assessment Date No Information Patient Care Teams Name Effective Dates (start - stop) Status Members No Information
--- OUTSIDE RECORDS SUMMARY | 2012-04-07 08:30 | XMS_ITS | Continuity of Care Document ---
Author Organization [facility] Address [address] [place] [address] [place] [address] Phone Care Team Providers Care Membership Sales Advisor Name Role Phone Jaun MARCUM MD, Pal Unavailable Unavailab le Allergies, Adverse Reactions, Alerts Substance Reaction Status Criticality aspirin Active No Information trimethoprim Active No Information sulfamethoxazole Active No Informat ion tetracycline Active No Information Penicillins Active No Information Medications Medication Instructions Dosage Effective Dates (start - stop) Status Comments Carbamazepine 200 mg Tab - Activ e [place] 10 mg-325 mg Tab - Active Levothyroxine [...] Diagnoses Date Provider Providers Copied on Encounter [facility], [address] [place] [address] [address], [place], [place], [id number], [place] tel:[phone] SEC Rafael RENARD Professional No Information 2 Jaun Aguillon. [address], [place], [address], [place]. tel:[phone] Family History Family Member Type Diagnosis Age At Onset No Information Payers Payer name Insurance type Covered [place] ID Bambi garner(s) No Information Social History [...]
--- OUTSIDE RECORDS SUMMARY | 2013-03-02 07:30 | XMS_ITS | Continuity of Care Document ---
Author Organization [facility] Address [address] [place] [address] Phone Care Team Providers Care Customer Response Representative Name Role Phone Oswaldo Mckeon MD Unavailable Unavailable Allergies, Adverse Reactions, Alerts Substance Reaction Status Criticality PROPOXYPHENE NAPSYLATE Active No In formation acetaminophen Active No Information tetracycline Active No Information Sulfa (Sulfonamide Antibiotics) Active No Information morphine Active No Information penicillin G Active No Information Medications Medication Instructions Dosage Effective Dates (start - stop) Status Comments Naprosyn 500 mg tablet take 1 tablet by oral route 2 times every day with food 500 MG - Active MILK THISTLE (unknown strength) Not Available - Active SYNTHROID (unknown strength) Not Available - Active NORCO (unknown strength) Not Available - Active CLONAZEPAM (unknown strength) Not Available - Active IBUPROFEN (unknown strength) Not Available - Active CITALOPRAM HBR (unknown strength) Not Available - Active TEGRETOL (unknown strength) Not Available - Active SOMA (unknown strength) Not Available - Active ALBUTEROL SULFATE (unknown strength) Not Available - Active Procedures Procedure Date MU Reporting OFFICE/OUTPATIENT VISIT NEW Advance Directives Directive Yes / No Effective Date File Name No Information Encounters Encounter Description Practice Location Reason(s) For Visit Diagnoses Date Provider Providers Copied on Encounter [facility], [address], [place], [address], [place] tel:[phone] [facility] No Information 3 Mike Ch[address]. [address], [place], [id number] . tel:[phone] OFFICE/OUTPAT IENT VISIT NEW [facility], [address], [place], [address], [place] tel:[phone] [facility] Hypertension, UnspecifiedBody Mass Index 29.0-29.9, adultDietary surveillance and counseling [address] Mike [address]. [address] , [place], [place], [id number] . tel: [phone] Family History Family Member Type Diagnosis Age At Onset Problem (finding) Family history of Turne r's Syndrome Problem (finding) Family history of Diabe shakeel mellitus Problem (finding) Family history of arthr itis Problem (finding) Family history of manic -depressive state Problem (finding) Family history of hyper tension Problem (finding) Family history of strok e Problem (finding) Family history of Heart disease Payers Payer name Insurance type Covered green party ID Authoriza tion(s) No Information Social History Type Description Quantity Date Captured Comments Sex Female Smoking Status No Information Chief Complaint And Reason For Visit No Information Reason For Referral Reason For Referral No Information Plan Of Treatment Date Type Action Status Goal Tobacco cessation counseling completed Referral Ordered: RADEX SPI LUMBOSAC 2/3 VIEWS ordered History Of Present Illness Encounter Date Complaint History Of Prese nt Illness No Information Functional Status Date Functional Assessmen t No Information Instructions Date Instruction Additional Infor virgil Take new medication as prescribe d Activity as tolerated Do not stop meds when symptoms r esolve Assessments Type Assessment Date No Information Patient Care Teams Name Effective Dates (start - stop) Status Members No Information
--- OUTSIDE RECORDS SUMMARY | 2013-03-02 07:30 | XMS_ITS | Continuity of Care Document ---
Author Organization [facility] Address [address] [place] [address] Phone Care Team Providers Care Tunnel Elastic Operator Zigzag Name Role Phone Oswaldo Mckeon MD Unavailable [...] Providers Copied on Encounter [facility], [address], [place], [address], [place] tel:[phone] [facility] No Information 3 Mike [address]. [address], [place], [id number] . tel:[phone] OFFICE/OUTPAT IENT VISIT NEW [facility], [address], [place], [address], [place] tel:[phone] [facility] Hypertension, UnspecifiedBody Mass Index 29.0-29.9, adultDietary surveillance and counseling 3 Mike Ch[address]. [address] , [place], [place], [id number] . tel: [phone] Family History Family Member Type Diagnosis Age [...] disease Payers Payer name Insurance type Covered constitution party ID Authoriza tion(s) No Information Social [...]
--- NOTE | ~2025-05-19 | XR_ITS ---
EXAMINATION: XR chest 2V, 05/19/2025 16:40 BOAT OFFICER HISTORY: cough/sob/fever x 1 month,HX COPD,SMOKER COMPARISON: No comparisons available. Technique: 2 views obtained. Findings: The lungs are clear, no effusion. No pneumothorax. Heart is normal size. Mediastinal and hilar contours are within normal limits. Bony thorax no acute abnormality. Impression: No acute cardiopulmonary abnormality. Reviewed, dictated and finalized at location P. OFFICER Impression: No acute cardiopulmonary abnormality.
--- OUTSIDE RECORDS SUMMARY | 2025-05-19 16:10 | XMS_ITS | Encounter Summary ---
Author Organization [facility] Healthcare Address [address] [place] [address] Care Team Providers Care Transplant Case Manager Name Role Phone Dmitry Duffy MD Unavailable [phone] Stephen Jeffery MD Primary Care Provider [phone] Tati Child MD Unavailable [phone] Encounter Details Date Type Department Care Team (Late st Contact Info) Description 05/17/2025 Telephone [facility] [address] [facility] [place] [address] Stephen Jeffery MD [address] [place] [address] Social History Tobacco Use Types Packs/Day Years [...] or ex-partner? No 02/19/2023 Social Connection and Isolation Panel Answer Date Recorded In a typical week, how many times do you talk on the phone with family, friends, or neighbors? More than three times a week 02/19/2023 How often do you get togethe r with friends or relatives? More than three times a week 02/19/2023 How often do you attend [facility] or quaker services? Never 02/19/2023 Do you belong to any clubs o r organizations such as sabianist groups, unions, fraternal or athletic groups, or [...] points, staff should administer the PHQ-9) 0 02/15/2025 [facility] Occupat ional Health - Occupational [...] the money to buy more. Never true 12/26/19 25 Within the past 12 months, t he food you bought just didn't last and you didn't have money to get more. Never true 12/25/2024 PRAPARE - Transportation Answer Date Re corded [...] place to sleep or slept in a penitentiary (including now)? No 02/19/2023 Personal Safety Answer Date Recorded Have you ever been in or are you currently in a harmful physical or emotional relationship or is someone making you feel afraid or unsafe? Denies 11/20/2023 Comments No Sex and Gender Information Value Date Recorded Sex Assigned at Not on file Legal Sex Female 7:07 AM BENCH LOOM WEAVER Gender Identity Female 07/02/2020 2:31 PM BENCH LOOM WEAVER Sexual Orientation Not on file documented as of this encounter Miscellaneous Notes * Telephone Encounter - Marcia Welch - 05/18/2025 9:20 AM CST Noted. H LOOM WEAVER * Telephone Encounter - Marcia Welch - 05/17/2025 1:53 PM CST Patient brought in incident report from [facility] department regarding medication Please review the note at the bottom H LOOM WEAVER documented in this encounter Plan of Treatment Not on file documented as of this encounter Goals Goal Patient Goal Type Associated Problems Recent Progress Patient-Stated? Author BH-Pain Behavioral Health On track( 021 1:17 PM BENCH LOOM WEAVER) Tracy Ricardo, RN Note: Patient will establish a comfort-function goal and identify the pain level that will allow the patient to perform desired activities and achieve an acceptable quality of life. documented as of this encounter Visit Diagnoses Not on filedocumented in this encounter Care Teams Transplant Case Manager Relationship Specialty Start Date End Date Stephen Jeffery MD [address] [place] [address] PCP - General Family Medicine 02/19/23 [place] [id number] [address] Surgeon Orthopedic Surgery 08/30/19 Tati Child MD [address] [place] [address] Consulting Physician Obstetrics and Gynecology 09/12/24 documented as of this encounter
--- OUTSIDE RECORDS SUMMARY | 2025-05-19 16:10 | XMS_ITS | Clinical Summary ---
Author Organization [facility] Address [address] [place] [address] Care Team Providers Care Lvn Lpn Name Role Phone Wallace Lawson Primary Care Provider [phone] Source Comments [facility],non-owned Affiliates and Associated Physician Practices is amultiple site organization consisting of ambulatory clinics and hospital sitesin [place], [place], [place] and [place]. This disclosure is being madepursuant to the Care Everywhere program and may not contain all information available regarding this patient. Last updated 18.[facility] Medications * Be aware that medications may not be up to date on this document. Alwaysverify current medications with the patient. No known medications Active Problems No known active problems Social History Tobacco Use Types Packs/Day Years Used Date Smoking Tobacco: Never Assessed Comments Unknown Sex and Gender Information Value Date Recorded Sex Assigned at Not on file Legal Sex Female 11:46 AM OXIDIZED FINISH PLATER Gender Identity Not on file Sexual Orientation Not on file Last Filed Vital Signs Vital Sign Reading Time Taken Comments Blood Pressure - - Pulse - - Temperature - - Respiratory Rate - - Oxygen Saturation - - Inhaled Oxygen Concentration - - Weight 127 kg (280 lb) 09/18/2022 2:35 PM OXIDIZED FINISH PLATER Height 166.4 cm (5' 5.5) 09/18/2022 2:35 PM OXIDIZED FINISH PLATER Body Mass Index 45.89 09/18/2022 2:35 PM OXIDIZED FINISH PLATER Plan of Treatment Health Maintenance Due Date Last Done Comments COLOGUARD (AGES 45-75) - COL ON CA SCREENING 1964 COLON MONITORING 1964 COLONOSCOPY - COLON CA SCREENING 1964 CT COLONOGRAPHY - COLON CA SCREENING 1964 Colorectal Cancer Screening 1964 FIT - COLON CA SCREENING 1964 FLEX SIG - COLON CA SCREENING 1964 MAMMOGRAM 1964 MEDICARE AWV 12 MONTHS 1964 HEPATITIS C SCREENING 09/18/1982 DTAP/TDAP/TD VACCINES (1 - Tdap) 09/23/1983 PAP SMEAR 1985 PNEUMOCOCCAL VACCINE 50+ (1 of 1 - PCV) 2014 ZOSTER VACCINE (1 of 2) 2014 SCREENING FOR DIABETES 09/18/2022 DEPRESSION SCREENING 07/12/2024 Respiratory Syncytial Virus (RSV) Vaccine Pt: or over 60 yrs (1 - Risk 60-74 years 1-dose series) 2024 COVID-19 VACCINE (1 - 2023-2 5 season) 2025 INFLUENZA VACCINE (#1) 2025 7, 05/22/2015 LIPID TESTING 07/28/2027 07/28/2022, 10/12/2016 HIV SCREENING [...] patient's age to complete this topic Insurance MEDICARE [place] [id number] MEDICAID - OUT OF STATE MEDICARE MEDICAID [facility] Care Teams Lvn Lpn Relationship Specialty Start Date End Date Wallace Lawson PA [address] [place] [address] PCP - General 07/06/19
--- OUTSIDE RECORDS SUMMARY | 2025-05-19 16:10 | XMS_ITS | Encounter Summary ---
Author Organization [facility] Healthcare Address [address] [place] [address] Care Team Providers Care Crystalizer Name Role Phone Wallace Lawson Primary Care Provider [phone] Dmitry Duffy MD Unavailable [phone] Stephen Jeffery MD Primary Care Provider [phone] Tati Child MD Unavailable [phone] Encounter Details Date Type Department Care Team (Late st Contact Info) Description 10/21/2020 Telephone [facility] [address] [place] [address] Chula Maharaj, RT Social History Tobacco Use [...] on file Legal Sex Female 7:07 AM FREIGHT AND PASSENGER AGENT Gender Identity Female 07/02/2020 2:31 PM FREIGHT AND PASSENGER AGENT Sexual Orientation Not on file documented as of this encounter Plan of Treatment Not on file documented as of this encounter Goals Goal Patient Goal Type Associated Problems Recent Progress Patient-Stated? Author BH-Pain Behavioral Health On track( 021 1:17 PM FREIGHT AND PASSENGER AGENT) No Tracy Roblero, RN Note: Patient will establish a comfort-function goal and identify the pain level that will allow the patient to perform desired activities and achieve an acceptable quality of life. documented as of this encounter Visit Diagnoses Not on filedocumented in this encounter Additional Health Concerns Infection Onset Date Last Indicated Resolved Time COVID: Suspected 06/13/2021 06/13/2021 06/13/2021 7:32 PM FREIGHT AND PASSENGER AGENT documented as of this encounter Care Teams Crystalizer Relationship Specialty Start Date End Date Wallace Lawson PA [address] [place] [address] PCP - General 01/21/17 02/18/23 Stephen Jeffery MD [address] [place] [address] PCP - General Family Medicine 02/19/23 [place] [id number] [address] Surgeon Orthopedic Surgery 08/30/19 Tati Child MD [address] [place] [address] DR JACOBSON [address] [place] [address] Consulting Physician Obstetrics and Gynecology 09/12/24 documented as of this encounter
--- OUTSIDE RECORDS SUMMARY | 2025-05-19 16:10 | XMS_ITS | Encounter Summary ---
Author Organization [facility] Healthcare Address [address] [place] [address] Care Team Providers Care Steel Rule Die Maker Name Role Phone Dmitry Duffy MD Unavailable [phone] Stephen Jeffery MD Primary Care Provider [phone] Tati Child MD Unavailable [phone] Reason for Visit * Reason Onset Date Comments Vomiting 02/22/2025 Encounter Details Date Type Department Care Team (Late st Contact Info) Description 02/23/2025 Nurse Triage [facility] [address] [place] [address] Stephen Jeffery MD [address] [place] [address] Social History Tobacco Use Types [...] How often do you attend chur or voodoo services? Never 02/19/2023 Do you belong to any clubs o r organizations such as mu-ism groups, unions, fraternal or athletic groups, or [...] staff should administer the PHQ-9) 0 02/15/2025 [facility] of Occupat ional Health - Occupational Stress [...] place to sleep or slept in a senior care (including now)? No 02/19/2023 Personal Safety Answer Date Recorded Have you ever been in or are you currently in a harmful physical or emotional relationship or is someone making you feel afraid or unsafe? Denies 11/20/2023 Comments No Sex and Gender Information Value Date Recorded Sex Assigned at Not on file Legal Sex Female 7:07 AM CLINICAL REIMBURSEMENT SPECIALIST Gender Identity Female 07/02/2020 2:31 PM CLINICAL REIMBURSEMENT SPECIALIST Sexual Orientation Not on file documented as of this encounter Miscellaneous Notes * Telephone Encounter - Marcia Welch - 03/02/2025 11:28 AM CDT Called patient to find out more information... 4 days ago, patient had an appointment for cataract surgery consult. Patient was fine up until she pulled into the parking lot where she began profusely vomiting. Amount was a lot and projectile and 4 times. She slept around the clock for the first couple days but is now just tired and has zero energy. After that she was only vomiting twice per day up until yesterday when it subsided. She states she has not thrown up today or yesterday. She states she is not showing signs of dehydration (no sunken eyes, has tears, no dry mouth, no confusion, etc) no fever, no sob, her sinuses are acting up and feels like she has an ear infection. She is not eating really anything at all as she is not feeling up to it but is drinking plenty of fluids and holding those down currently. Offered same day in [facility], patient declined, and scheduled for tomorrow with [facility]. Patient aware if she shows any signs of dehydration or her sx worsen between now and then, she should head to the ER [facility] * Telephone Encounter - Jocelynn Verduzco MA - 03/02/2025 11:15 AM CDT Can you get pt scheduled with Jose D per Jose D? Thanks * Telephone Encounter - Jocelynn Verduzco MA - 03/02/2025 10:06 AM CDT Spoke with pt who states that she will go almost all day and then all of a sudden she is puking, she states no other symptoms at this time, please advise? Thanks * Telephone Encounter - Jocelynn Verduzco MA - 02/23/2025 10:40 AM CDT Please advise, Thanks * Telephone Encounter - Vanessa Durham RN - 02/23/2025 9:40 AM CDT Reason for Conversation Vomiting Background Pt is a 59 y/o female with a hx of HTN, Crohn's. UTI, Migraines, CVA and Epilepsy calling with vomiting x 2 days. Pt states she has vomited x 4 this morning. Pt reports a hx of stomach ulcers. Pt states she has had intermittent headaches x 3 weeks. Pt states headaches are severe at times. Pt spoke with Dr Jeffery at [facility] 02-15-2025 and was prescribed Toradol. Pt states meds have not helped her headaches. Pt denies fever and diarrhea. Please contact pt per triage guideline. [phone]. Care advice given including increased fluids/clear liquids/Gatorade, dietary management, lying in acool, quiet, dark room, cold pack and avoiding the heat. Pt verbalized understanding and will call with worsening sx's. Disposition Callback by PCP or Subspecialist Within 1 Hour Reason for Disposition Severe headache and vomiting Protocols Used [id number] * Telephone Encounter - Vanessa Durham RN - 02/23/2025 9:29 AM CDT Regarding: Severe headache and vomiting ----- Message from Joellen Omer sent at 02/23/2025 9:22 AM CDT ----- Symptom Based Call Chief Complaint(s): Severe headache and vomiting Duration: about 3 weeks What type of symptom(s) is the patient experiencing? Red Flag. Is the patient concerned they are experiencing a medical emergency requiring an ambulance? No Additional Comments: Patient is complaining of severe headache and vomiting. She was seen last weekby the doctor. He gave her Zofran and Tordol. Neither is helping. Patient has a history of migraines. States this headache is worse than those. She is only eating bread and saltine crackers. Anythingelse is coming right back up. Does message need to be routed? Yes-Action Needed documented in this encounter Plan of Treatment Not on file documented as of this encounter Goals Goal Patient Goal Type Associated Problems Recent Progress Patient-Stated? Author BH-Pain Behavioral Health On track( 021 1:17 PM CLINICAL REIMBURSEMENT SPECIALIST) Tracy Ricardo, RN Note: Patient will establish a comfort-function goal and identify the pain level that will allow the patient to perform desired activities and achieve an acceptable quality of life. documented as of this encounter Visit Diagnoses Not on filedocumented in this encounter Care Teams Steel Rule Die Maker Relationship Specialty Start Date End Date Stephen Jeffery MD [address] [place] [address] PCP - General Family Medicine 02/19/[address] [place] [address] [facility] [address] [place] [address] Surgeon Orthopedic Surgery 08/30/19 Tati Child MD [address] [facility] [address]ON [address] [place], [place] [address] [address] Consulting Physician Obstetrics and Gynecology 09/12/24 documented as of this encounter
--- OUTSIDE RECORDS SUMMARY | 2025-05-19 16:10 | XMS_ITS | Clinical Summary ---
Author Organization [facility] Address [address] [place] [address] Phone Care Team Providers Care Project Program Manager Name Role Phone Wallace Lawson Primary Care Provider [phone] Allergies Active Allergy Reactions Criticality Noted Date [...] Resolved Date Community acquired pneumonia 07/28/2022 07/31/2022 Encounters Date Type Department Care Team Description 05/12/2025 9:55 PM CDT - 05/13/2025 4:17 AM GAS COMPRESSOR TURBINE OPERATOR Emergency [facility] Emergency [address] [place] [id number] Onesimo Mccurdy MD Hypokalemia Discharge Disposition: Discharged to home or Selfcare 05/12/2025 Travel from Last 3 Months Family History Medical History Relation Name Comments [...] Sign Reading Time Taken Comments Blood Pressure 133/78 05/13/2025 4:00 AM GAS COMPRESSOR TURBINE OPERATOR Pulse 64 05/13/2025 4:00 AM GAS COMPRESSOR TURBINE OPERATOR Temperature 35.7 C (96.3 F) 05/12/2025 10:01 PM CDT Respiratory Rate 17 05/12/2025 9:56 PM CDT Oxygen Saturation 92% 05/13/2025 4:00 AM GAS COMPRESSOR TURBINE OPERATOR Inhaled Oxygen Concentration - - Weight 69.5 kg (153 lb 3.5 oz) 05/12/2025 9:56 P M CDT Height 165.1 cm (5' 5) 05/12/2025 9:56 PM CDT Body Mass Index 25.5 05/12/2025 9:56 PM CDT Plan of Treatment Health Maintenance Due Date Last Done Comments Hepatitis C Virus (HCV) Screening 1964 Mammogram 1974 Pap Smear 1985 Cervical Cancer Screening (CCS) 1994 HPV/Cotest 1994 Cologuard 2009 Immunochemical Fecal Occult Blood 2009 Medicare Initial AWV [id number] 07/12/2011 Respiratory Syncytial Virus (RSV) Immunization (Adult) (1 - Risk 50-74 years 1-dose series) 2014 Zoster Immunization (2 of 2) 04/29/2021 03/04/2021 Influenza Immunization (#1) 03/12/202504/12, 05/19/2017, 05/22/2015 SARS-COV-2 Immunization (3 - season) 2025 03/25/2021, 03/04/2021 Colonoscopy 04/28/2032 04/28/2022 Colorectal Cancer Screening 04/28/2032 Pneumococcal Immunization (5 0+ years) Completed 05/02/2024, 03/19/2022 Pneumococcal Immunization Combined Discontinued 05/02/2024, 03/19/2022 DTaP/Tdap/Td Immunization Discontinued 08/02/2024 TdaP Immunization Completed 08/02/2024 Hepatitis B Immunization Aged Out No longer eligible based on patient's age to complete this topic Human Papillomavirus (HPV) Immunization Aged Out No longer eligible based on patient's age to complete this topic Meningococcal Immunization (ACWY) Aged Out No longer eligible based on patient's age to complete this topic Rotavirus Immunization Aged Out No lo nger eligible based on patient's age to complete this topic Procedures Procedure Name Priority Date/Time Associated Diagnosis Comments POCT GLUCOSE STAT 05/13/2025 2:30 AM GAS COMPRESSOR TURBINE OPERATOR POCT GLUCOSE STAT 05/13/2025 1:03 AM CDT POCT GLUCOSE STAT 05/12/2025 9:57 PM CDT CBC WITH AUTO DIFFERENTIAL STAT 05/12/2025 8:00 PM CDT CMP (COMPREHENSIVE METABOLIC PANEL) STAT 05/12/2025 8:00 PM CDT COMPLETE BLOOD COUNT (CBC) WITH DIFF STAT 05/12/2025 8:00 PM CDT from Last 3 Months Results * (ABNORMAL) POCT Glucose (05/13/2025 2:30 AM GAS COMPRESSOR TURBINE OPERATOR) Only the most recent of3 resultswithin the time period is included. [facility] GLUCOSE,BEDSID E POCT 106(H) 70 - 99 mg/dL 05/13/2025 2:32 AM GAS COMPRESSOR TURBINE OPERATOR [facility] Blood 05/13/2025 2:30 AM GAS COMPRESSOR TURBINE OPERATOR 05/13/2025 2:32 AM GAS COMPRESSOR TURBINE OPERATOR us None Provider POINT OF CARE TESTING Final Resu lt [facility] [address] [place] [address] * (ABNORMAL) CBC with Auto Differential (05/12/2025 8:00 PM CDT) [facility] WBC 11.49 4.00 - 12.00 10(3)/mcL 05/12/2025 10:26 PM CDT [facility] RBC 3.94 3.80 - 5.30 10(6)/mcL 05/12/2025 10:26 PM CDT [facility] HEMOGLOBIN (HGB) 12.3 12.0 - 15.8 g/dL 05/12/2025 10:26 PM CDT [facility] HEMATOCRIT (HCT) 35.4(L) 36.0 - 47.0 % 05/12/2025 10:26 PM CDT [facility] MCV 89.8 82.0 - 96.0 fL 05/12/2025 10:26 PM CDT [facility] MCH 31.2 26.0 - 34.0 pg 05/12/2025 10:26 PM CDT [facility] MCHC 34.7 31.0 - 36.0 g/dL 05/12/2025 10:26 PM CDT [facility] PLATELET COUNT 251 140 - 440 10(3)/mcL 05/12/2025 10:26 PM CDT [facility] RDW 12.9 11.8 - 15.5 % 05/12/2025 10:26 PM CDT [facility] MPV 8.9(L) 9.7 - 12.4 fL 05/12/2025 10:26 PM CDT [facility] NEUTROPHILS 69.7 47.0 - 73.0 % 05/12/2025 10:26 PM CDT [facility] LYMPHOCYTES 23.8 18.0 - 42.0 % 05/12/2025 10:26 PM CDT [facility] MONOCYTES 5.6 4.0 - 12.0 % 05/12/2025 10:26 PM CDT [facility] EOSINOPHILS 0.3 0.0 - 5.0 % 05/12/2025 10:26 PM CDT [facility] BASOPHILS 0.3 0.0 - 1.0 % 05/12/2025 10:26 PM CDT [facility] IMMATURE GRANULOCYTE 0.3 0.0 - 0.4 % 05/12/2025 10:26 PM CDT [facility] ABSOLUTE NEUTROPHILS 8.00(H) 1.60 - 7.70 10(3)/mcL 05/12/2025 10:26 PM CDT [facility] ABSOLUTE LYMPHOCYTES 2.74 1.30 - 3.20 10(3)/mcL 05/12/2025 10:26 PM CDT [facility] ABSOLUTE MONOCYTES 0.64 0.20 - 1.00 10(3)/mcL 05/12/2025 10:26 PM CDT [facility] ABSOLUTE EOSINOPHIL 0.03 0.00 - 0.40 10(3)/[facility] 05/12/2025 10:26 PM CDT [facility] ABSOLUTE BASOPHILS 0.04 0.00 - 0.10 10(3)/mcL 05/12/2025 10:26 PM CDT [facility] ABSOLUTE IMMATURE GRANULOCYTE 0.04(H) 0.00 - 0.03 10 (3) mcL. 05/12/2025 10:26 PM CDT [facility] NRBC PER 100 WBC 0 05/12/20 10:26 PM CDT [facility] Blood Venipuncture / Unknown 05/12/2025 8:00 PM CDT 05/12/2025 10:22 PM CDT us Onesimo Mccurdy MD HEMATOLOGY ORDERABLES F inal Result [facility] [address] [place] [address] * (ABNORMAL) Comprehensive Metabolic Panel (Cmp) [id number] (05/12/2025 8:00 PM CDT) SODIUM 137 136 - 145 mmol/L 05/12/2025 10:44 PM CDT [facility] POTASSIUM 3.0(L) 3.5 - 5.1 mmol/L 05/12/2025 10:44 PM CDT [facility] CHLORIDE 104 98 - 107 mmol/L 05/12/2025 10:44 PM CDT [facility] CO2, VENOUS 24 22 - 30 mmol/L 05/12/2025 10:44 PM CDT [facility] ANION GAP 12.0 <18.0 mmol/L 05/12/2025 10:44 PM CDT [facility] GLUCOSE 129(H) 70 - 99 mg/dL 05/12/2025 10:44 PM CDT [facility] BUN 13 10 - 20 mg/dL 05/12/2025 10:44 PM CDT [facility] CREATININE, BLOOD 0.69 0.60 - 1.00 mg/dL 05/12/2025 10:44 PM T [facility] BUN/CREATININE RATIO 19 12 - 20 ratio 05/12/2025 10:44 PM T [facility] TOTAL PROTEIN 6.2 6.0 - 8.0 g/dL 05/12/2025 10:44 PM T [facility] ALBUMIN 3.5 3.5 - 5.0 g/dL 05/12/2025 10:44 PM T [facility] A/G RATIO 1.3 1.0 - 2.2 05/12/2025 10:44 PM T [facility] CALCIUM 8.2(L) 8.7 - 10.5 mg/dL 05/12/2025 10:44 PM T [facility] T BILI 0.1(L) 0.2 - 1.2 mg/dL 05/12/2025 10:44 PM T [facility] SGOT (AST) 20 <43 U/L 05/12/2025 10:44 PM [facility] SGPT (ALT) 16 <56 U/L 05/12/2025 10:44 PM [facility] ALKALINE PHOSPHATASE 103 40 - 150 U/L 05/12/2025 10:44 PM [facility] GFR, ESTIMATED >60 >=60 05/12/2025 10:44 PM T [facility] Comment: Creatinine Clearance is the preferred criteria for selecting drug dose adjustments in renally impaired patients. The GFR is provided as additional pertinent clinical information. GFR is reported in mL/min/1.73 sq m. Calculation based on the 2020 Chronic Kidney Disease Epidemiology Collaboration (CKD-EPI) equation refit without adjustment for race. GFR, EST. >60 >=60 025 10:44 PM [facility] Comment: Creatinine Clearance is the preferred criteria for selecting drug dose adjustments in renally impaired patients. The GFR is provided as additional pertinent clinical information. GFR is reported in mL/min/1.73 sq m. Calculation based on the 2009 Chronic Kidney Disease Epidemiology Collaboration (CKD-EPI). GFR, EST. NONAFRICAN >60 >=60 05/12/2025 10:44 PM CDT [facility] Comment: Creatinine Clearance is the preferred criteria for selecting drug dose adjustments in renally impaired patients. The GFR is provided as additional pertinent clinical information. GFR is reported in mL/min/1.73 sq m. Calculation based on the 2009 Chronic Kidney Disease Epidemiology Collaboration (CKD-EPI). Blood Venipuncture / Unknown 05/12/2025 8:00 PM CDT 05/12/2025 10:22 PM CDT Onesimo Mccurdy MD CHEMISTRY ORDERABLES Fi nal Result [facility] [address] [place] [address] from Last 3 Months Insurance MEDICAID [place] MEDICARE Advance Directives * [...] measures to stabilize the patient. Care Teams Project Program Manager Relationship Specialty Start Date End Date Wallace Lawson, PAC [address] [place] [address] PCP - General Physician Vascular Technologist Sonographer 10/10/16
--- OUTSIDE RECORDS SUMMARY | 2025-05-19 16:10 | XMS_ITS | Clinical Summary ---
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 malignancy, do not have an indication for hysterectomy, and particularly in her with extensive medical and surgical history the risks would far outweigh the benefits as I would not expect a hysterectomy to address her pain. Pain would best be addressed by vaginal icing and pelvic floor physical therapy. The small cervical mass is 1.0 cm in its largest dimension, likely a small fibroid or nabothian cyst. It is not palpable on exam. Provided reassurance that I also do not think this is contributing to her pain, but she is very concerned about this finding so we will repeat a pelvic US in 6 months with return GEOCHEMICAL LABORATORY TECHNICIAN visit after completing PFPT to survey for interval changes. Answered all questions and she is agreeable with plan to NOT pursue hysterectomy at this time pending negative EMB. Senna sent for constipation. PFPT referral and information provided today Aspirin allergy 02/29/2024 09/07/2024 Grief 02/29/2024 05/16/2025 Assessment & Plan (02/29/2024 12:19 PM CDT): 2/2 loss of spouse after prolonged illness. Concern about social isolation and over medicating. Plan: Provided grief support resources. 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 05/16/2025 LACIE (acute kidney injury) 08/04/2022 Dehydration 08/04/2022 05/02/2024 Personal history of malignan t neoplasm of breast 08/01/2022 05/16/2025 Pneumonia, unspecified organism 08/01/2022 05/02/2024 Facial weakness following cerebral infarction 08/01/19 23 05/16/2025 Hemiplga following cerebral infrc affecting left nondom side 08/01/2022 02/15/2025 Chronic prescription opiate use 04/10/2022 05/16/2025 Full incontinence of feces 04/10/2022 1 07/16/2024 Overview (04/10/2022): Added automatically from request for surgery [id number] Bowel habit changes 04/10/2022 05/16/20 Overview (04/10/2022): Added automatically from request for surgery [id number] Colon cancer screening 04/10/202205/16 Overview (04/10/2022): Added automatically from request for surgery [id number] Assessment & Plan (10/19/2023 3:23 PM CDT): Recommend colonoscopy for CRC screening Abdominal pain 04/10/2022 05/16/2025 Overview (04/10/2022): Added automatically from request for surgery [id number] Weight loss 04/10/2022 05/16/2025 Overview (04/10/2022): Added automatically from request for surgery [id number] Assessment & Plan (02/29/2024 12:11 PM CDT): Unintentionally. 2/2 grief. Plan: See A&P for DEE Fall 11/11/2021 05/16/2025 Assessment & Plan (11/13/2021 7:18 AM CDT): [...] on fall precautions/seizure precautions Urinary retention 11/11/2021 05/16/2025 Assessment & Plan (11/13/2021 7:25 AM CDT): [...] UA and will send that for culture Hypertensive encephalopathy 11/10/2021 02/19/2023 Assessment & Plan [...] consulted --> pending Brain MRI and EEG UTI (urinary tract infection) 11/10/2021 05/16/2025 Assessment & Plan (11/13/2021 7:25 AM CDT): [...] allergic reaction Inflammation of sacroiliac joint 02/27/2020 05/16/2025 Degenerative lumbar spinal stenosis 08/24/2019 05/16/2025 Syncope 08/24/2019 05/16/2025 Intractable back pain 08/24/20192024 Degeneration of lumbar intervertebral disc 08/23/2019 05/16/2025 Insomnia secondary to chronic pain 08/10/2019 05/16/2025 Assessment & Plan (02/29/2024 12:05 PM CDT): Exacerbated 2/2 grief. 2-3hrs sleep tonight. Plan: Start mirtazapine 15mg qhs F/u 2 mo Acute chest pain 10/11/2016 09/07/2024 Cough 10/11/2016 05/16/2025 Diarrhea 10/11/2016 05/16/2025 Migraine 05/28/2016 05/16/2025 Assessment & Plan (08/11/2023 4:53 PM YARD LABOR SUPERVISOR): Not well controlled, continues to have significant headaches; no relief with you Ruperto urine Zyrtec in the past Continue Tegretol 200 mg b.i.d., atenolol 50 mg daily Continue desk venlafaxine 50 mg daily Would recommend referral to neurology if no improvement Assessment & Plan (07/14/2023 4:53 PM YARD LABOR SUPERVISOR): Not well controlled, has been having daily headaches, worse 1st thing in the morning; not responsive to migraine medications Patient has history of intracranial tumor; will repeat imaging to evaluate if patient continues to have growth of tumor, or other causes of intractable headaches Assessment & Plan (04/13/2023 10:45 AM CDT): [facility] and she is having to take additional Tylenol and/or Motrin Patient would like to try Ubrelvy Ubrelvy 50 mg tablets sent to pharmacy Benign neoplasm of brain 08/12/201501/2025 Other headache syndrome 11/20/201411/2024 Assessment & Plan (10/19/2023 3:25 PM CDT): Unclear etiology; continues to have significant headaches; may be medication related headaches as patient reports continued use of Tylenol and ibuprofen Encouraged discontinuation of Tylenol ibuprofen; will give trial of Ubrelvy 100 mg p.r.n. Obstructive sleep apnea syndrome 03/09/2013 05/16/2025 Assessment & Plan (10/19/2023 3:22 PM CDT): Stable, well controlled; no major daytime sleepiness Hypersomnia 03/09/2013 05/16/2025 Carotid artery disease 01/03/201305/16 Tachycardia 05/16/2025 Encounters Date Type Department Care Team Description 05/17/2025 Telephone [facility] [address] [phone] Stephen Farris MD 05/16/2025 11:30 AM YARD LABOR SUPERVISOR [facility] [address] [address] Henrietta Sinha NP Hypokalemia (Primary Dx); Nonintractable epilepsy without status epilepticus, unspecified epilepsy type (HCC); Cerebrovascular accident (CVA) due to occlusion of small artery (HCC); DEE (generalized anxiety disorder); Postoperative hypothyroidism; Primary hypertension; Mixed hyperlipidemia; Chronic bilateral low back pain with left-sided sciatica; Anxiolytic dependence (HCC); Panlobular emphysema; Moderate episode of recurrent major depressive disorder (HCC); Crohn's disease of large intestine without complication (HCC); Acute bacterial sinusitis 05/16/2025 Telephone [facility] [address] [address] Didi Miranda 05/14/2025 Telephone [facility] [address] [address] Stephen Farris MD Appointment Request 02/28/2025 Telephone [facility] [address] [address] Stephen Farris MD Medical Question/Miscellaneou s 02/23/2025 Nurse Triage [facility] [address] [address] Stephen Farris MD 02/23/2025 Telephone [facility] [address] [address] Stephen Farris MD from Last 3 Months Immunizations Immunization Administration [...] Site/Laterality Comments OTHER SURGICAL HISTORY Cholecystitis: Cholecystectomy UT CHOLECYSTECTOMY Cholecystectomy - (Added by TW Conv) UT CAUTERY CERVIX LASER ABLATION Laser Ablation Of Cervix - (Added by TW Conv) SPINAL FUSION Spinal Arthrodesis - (Added by TW Conv) UT EXC CYST/ABERRANT BREAST TISSUE OPEN 1/> LESION [...] (HCC) Cancer, thyroid Chronic obstructive pulmonary disease COPD Tension headache Headache, tensi on Disorder of thyroid Thyroid dise ase Hx Other Medical Headache, migra ine Primary fibromyalgia syndrome Fi bromyalgia Hx Other Medical 2010 Lumbar fusion Hyperlipidemia Hyperlipidemia Depression Depression Asthma Asthma Tachycardia Low back pain Colon polyp Burn 09/19/2024 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 Never 02/19/2023 Do you belong to any clubs o r organizations such as mandaen groups, unions, fraternal or athletic groups, or [...] staff should administer the PHQ-9) 0 02/15/2025 [facility] - Occupational Stress Questionnaire Answer Date Recorded [...] place to sleep or slept in a jail (including now)? No 02/19/2023 Personal Safety Answer Date Recorded Have you ever been in or are you currently in a harmful physical or emotional relationship or is someone making you feel afraid or unsafe? Denies 11/20/2023 Comments No Sex and Gender Information Value Date Recorded Sex Assigned at Not on file Legal Sex Female 7:07 AM YARD LABOR SUPERVISOR Gender Identity Female 07/02/2020 2:31 PM YARD LABOR SUPERVISOR Sexual Orientation Not on file Obstetrics History Para Term AB IAB SAB Ectopic Multiple Livin g Live Births 5 3 2 1 2 1 Date Outcome GA Total Labor Labor/2nd/3rd Weight Sex Type Anes PTL Nicol A1 A5 Name Clin AB AB Term C-Secti on Term C-Secti on C-Secti on Last Filed Vital Signs Vital Sign Reading Time Taken Comments Blood Pressure 136/80 05/16/2025 11:25 AM YARD LABOR SUPERVISOR Pulse 78 05/16/2025 11:25 AM YARD LABOR SUPERVISOR Temperature 36.6 C (97.8 F) 02/15/2025 1:28 PM CDT Respiratory Rate 16 05/16/2025 11:25 AM YARD LABOR SUPERVISOR Oxygen Saturation 87% 05/16/2025 11:25 AM YARD LABOR SUPERVISOR Inhaled Oxygen Concentration - - Weight 65.8 kg (145 lb) 05/16/2025 11:25 AM YARD LABOR SUPERVISOR Height 165.1 cm (5' 5) 05/16/2025 11:25 AM YARD LABOR SUPERVISOR Body Mass Index 24.13 05/16/2025 11:25 AM YARD LABOR SUPERVISOR Plan of Treatment Health Maintenance Due Date Last Done Comments Hepatitis B Screening 1982 Influenza Vaccine (#1) 2025 , 05/19/2017, 05/22/2015 Postponed from 03/12/2025 (Patient declined, but will receive in the future) Depression Screening 02/15/2026 02/15/2025, 10/12/2024, 10/13/2023, Additional history exists Regular Well Visit/Exam 18-64 02/15/2026 02/15/2025, 12/27/2023 Breast Cancer Screening-Mammogram 02/20/2026 Postponed from 1965 (Patient declined, but will receive in the future) Cervical Cancer Screening 05/16/2026 12/27/2023 Po stponed from 12/26/2024 (Patient declined, but will receive in the future) Covid-19 Vaccine ( season) 2026 03/25/2021, 03/04/2021 Postponed from 03/12/2025 (Patient declined, but will receive in the future) Zoster Vaccine (2 of 2) 05/16/2026 03/04/2021 Post poned from 04/29/2021 (Insurance / Financial) Colon Cancer Screening-Colonoscopy 04/28/2032 04/28/2022 DTaP/Tdap/Td Vaccine (2 - Td or Tdap) 08/02/2034 08/02/2024 Colon Cancer Screening-CT Colonography Discontinued 04/28/2022 Colon Cancer Screening-DNA Stool Discontinued 04/28/2022 Colon Cancer Screening-FIT Discontinued 04/28/2022 Colon Cancer Screening-Sigmoidoscopy Discontinued 04/28/2022 Hepatitis C Screening Completed 05/06/2023 Pneumococcal vaccine <65 Completed 05/02/2024, 0902/2022 Goals Goal Patient Goal Type Associated Problems Recent Progress Patient-Stated? Author [facility] On track( 021 1:17 PM YARD LABOR SUPERVISOR) Tracy Ricardo, RN Note: Patient will establish a comfort-function goal and identify the pain level that will allow the patient to perform desired activities and achieve an acceptable quality of life. Medical Devices Implanted Type Area Ammonia Worker Device Identifier Shelf Expiration Date Model / Serial / Lot Lifenet [id number] Vivigen Allograft Graft 5 Cc Bone Cortical Cancellous; Deminerali - [id number] - [id number] Implanted:Qty: 1 on 08/28/2019 by Dmitry Duffy MD at [facility] N/A: Spine Lumbar Lifenet 03/22/2020 [id number] / [id number] / Depuy Spine [id number] Concorde [id number] Radiopaque 5d Lordotic Bullet Nose Cage Spinal Latex Free - [id number] Implanted:Qty: 2 on 08/28/2019 by Dmitry Duffy MD at [facility] N/A: Spine Lumbar Depuy Spine [id number] / / Depuy Synthes Spine [id number] Viper Prime 6mm 45mm Polyaxial Extend Tab Spine Screw Bone - [id number] Implanted:Qty: 4 on 08/28/2019 by Dmitry Duffy MD at [facility] N/A: Spine Lumbar Depuy Synthes Spine [id number] / / Depuy Spine [id number] Viper 2 40mm Lordotic Pavan Spinal Titanium Mis - [id number] Implanted:Qty: 2 on 08/28/2019 by Dmitry Duffy MD at [facility] N/A: Spine Lumbar Depuy Spine [id number] / / Depuy Spine [id number] 5.5mm 1 Inner Spine Screw Set Titanium Nonsterile Viper - [id number] Implanted:Qty: 4 on 08/28/2019 by Dmitry Duffy MD at [facility] N/A: Spine Lumbar Depuy Spine [id number] / / Procedures Procedure Name Priority Date/Time Associated Diagnosis Comments PAP AND HPV, REFLEX TO HPV GENOTYPES Routine 12/27/2023 2:53 PM CDT Well woman exam HEPATITIS C ANTIBODY Routine 05/06/2023 3:07 PM CDT Need for hepatitis C screening test COLONOSCOPY 04/28/2022 11:23 AM CDT from Last 3 Months or Most Recently Relevant to Health Maintenance Results * Pap and HPV, reflex to HPV Genotypes (12/27/2023 2:53 PM CDT) CLINICAL INFORMATION: [facility] Comment:None given LMP [facility] Comment:None given Previous Pap [facility] Comment:None given Prev. Bx [facility] Comment:None given SOURCE: [facility] Comment:Cervix, Endocervix Pap, specimen adequacy [facility] Comment: Satisfactory for evaluation. Endocervical/transformation zone component absent. Age and/or menstrual status not provided HPV interp [facility] Comment: Cytology Results: Negative for intraepithelial lesion or malignancy. COMMENTS [facility] Comment: This Pap test has been evaluated with computer assisted technology. [facility] Comment: CAK, CT(ASCP) CT Screening Location: [place] [address], [place] [address] Comment [facility] Comment: EXPLANATORY NOTE: The Pap is a [...] High Risk E6/E7 Not Detected NOT DETECTED Joob[facility] /Korey Maddox [facility] Comment: Not Detected High Risk HPV types (16,18,31,33,35,39,45,51,52, 56,58,59,66,68) were not detected. Other HPV types which cause anogenital lesions may be present. The significance of the other types of HPV in malignant processes has not been established. Methodology: Real Time PCR Thin prep 12/27/2023 2:53 PM CDT 12/28/2023 1:30 AM CDT Wendie Zhang NP LAB CYTOLOGY ORDERABLES Fin al Result Performing Organization Address City/State/[facility] Co de Phone Number [facility] [address] [place] [address] [facility]/[place] [address] [facility] [place] [address] * Hepatitis C antibody Blood (05/06/2023 3:07 PM CDT) Hep C Ab Nonreactive Nonreactive [facility] ([place]) Comment: Interpretive Data Nonreactive: Antibodies to HCV [...] last revised on 2019. Testing performed by: [facility], [address] [place] [address]., [id number] Blood 05/06/2023 3:07 PM CDT 05/07/2023 7:45 AM CDT us Henrietta Sinha NP LAB MICROBIOLOGY - GENERAL ORDER SWATHI Final Result Performing Organization Address City/[facility]/ZIP Co de Phone Number SEJAL SANCHES (PEPPER) [address] [facility] Department [place] [address] * COLONOSCOPY (04/28/2022 11:23 AM CDT) Anatomical Region Laterality Modality Other Narrative Procedure Note Flakita Downs MD - 04/28/2022 11:23 AM CDT [facility] Patient Name: Leeann Mejia Procedure Date: 04/28/2022 11:23AM Date of : 1965 Admit Type: Outpatient Age: 56 Gender: Female Attending MD: Flakita Downs M.D. Room: [facility] ENDOSCOPY ROOM 1 Note Status: Finalized [...] retrieved. Clip (MR conditional) was placed. Clipmanufacturer: [employer]. - Eleven 5 to 14 mm [...] under direct vision. The Pediatric Colonoscope [id number] was introducedthrough the anus and advanced to [...] clip was successfully placed (MR conditional). Clip demand planner: Any.DO. Therewas no bleeding at the end of [...] 11:23 AM Procedure Code(s): --- Professional --- 43328, Colonoscopy, flexible; with removal of tumor(s), polyp(s), or other lesion(s) by snare technique 07755, 59, Colonoscopy, flexible; with biopsy, single or multiple Diagnosis Code(s): --- Professional --- K64.8, Other hemorrhoids D12.4, Benign neoplasm of descending colon D12.5, Benign neoplasm of sigmoid colon K52.9, Noninfective gastroenteritis and colitis, unspecified CPT copyright 2020 [employer]. All rights reserved. The codes documented in this report are preliminary and upon track supervisor reviewmay be revised to meet current compliance requirements. Recognized by the [employer] for promoting quality in endoscopy Flakita Downs MD ENDOSCOPY PROCEDURES Final Result from Last 3 Months or Most Recently Relevant to Health Maintenance Insurance MEDICARE [facility] MEDICARE IDPA MEDICARE IDPA MEDICARE [facility] Advance Directives For more information, please contact: [phone] * Full Code (Latest Code Status on [...] 6:23 PM 08/28/2019 3:42 PM Care Teams Meat And Poultry Inspector Relationship Specialty Start Date End Date Stephen Farris MD [address] [place] [address] PCP - General Family Medicine 02/19/23 [place] [id number] [address] Surgeon Orthopedic Surgery 08/30/19 Tati Child MD [address] [place] [address] [address] Consulting Physician Obstetrics and Gynecology 09/12/24
--- OUTSIDE RECORDS SUMMARY | 2025-05-19 16:10 | XMS_ITS | Encounter Summary ---
Author Organization [facility] Healthcare Address [address] [place] [address] Care Team Providers Care Bridge Operator Slip Name Role Phone Wallace Lawson Primary Care Provider [phone] Dmitry Duffy MD Unavailable [phone] Stephen Jeffery MD Primary Care Provider [phone] Tati Child MD Unavailable [phone] Encounter Details Date Type Department Care Team (Late st Contact Info) Description 05/31/2020 Telephone [facility] [address] [place] [address] Miquel Peter, RT Social History Tobacco Use [...] on file Legal Sex Female 7:07 AM SWIMMING POOL SERVICER Gender Identity Female 07/02/2020 2:31 PM SWIMMING POOL SERVICER Sexual Orientation Not on file documented as of this encounter Plan of Treatment Not on file documented as of this encounter Visit Diagnoses Not on filedocumented in this encounter Additional Health Concerns Infection Onset Date Last Indicated Resolved Time COVID: Suspected 06/13/2021 06/13/2021 06/13/2021 7:32 PM SWIMMING POOL SERVICER documented as of this encounter Care Teams Bridge Operator Slip Relationship Specialty Start Date End Date Wallace Lawson PA [address] [place] [address] PCP - General 01/21/17 02/18/23 Stephen Jeffery MD [address] [place] [address] PCP - General Family Medicine 02/19/23 [place] [id number] [address] Surgeon Orthopedic Surgery 08/30/19 Tati Child MD [address] [place] [address] [address] Consulting Physician Obstetrics and Gynecology 09/12/24 documented as of this encounter
--- OUTSIDE RECORDS SUMMARY | 2025-05-19 16:10 | XMS_ITS | Encounter Summary ---
Author Organization [facility] Healthcare Address [address] [place] [address] Care Team Providers Care Derrick Boat Captain Name Role Phone Dmitry Duffy MD Unavailable [phone] Stephen Jefefry MD Primary Care Provider [phone] Tati Child MD Unavailable [phone] Reason for Visit * Auth/Cert (Routine) Specialty Diagnoses / Procedures Referred By Contac t Referred To Contact Diagnoses Personal history of colonic polyps Encounter for screening colonoscopy Personal history of colonic polyps [Z86.010] Encounter for screening colonoscopy [Z12.11] Procedures VT COLONOSCOPY FLX DX W/COLLJ SPEC WHEN PFRMD COLONOSCOPY Referral ID Status Reason Start Date Expiration Date Visits Re quested Visits Authorized [id number] 1 1 Encounter Details Date Type Department Care Team ([facility] st Contact Info) Description 07/26/2024 Hospital Encounter [facility] [address] [place] [address] Flakita Downs MD [address] [place] [address] DR JACOBSON [address] [place] [address] Social History Tobacco Use Types Packs/Day Years [...] How often do you attend chur or mandaen services? Never 02/19/2023 Do you belong to any clubs o r organizations such as rastafari groups, unions, fraternal or athletic groups, or [...] staff should administer the PHQ-9) 0 02/[facility]20[facility] - Occupational Stress Questionnaire Answer Date [...] place to sleep or slept in a prison (including now)? No 02/19/2023 Personal Safety Answer Date Recorded Have you ever been in or are you currently in a harmful physical or emotional relationship or is someone making you feel afraid or unsafe? Denies 11/20/2023 Comments No Sex and Gender Information Value Date Recorded Sex Assigned at Not on file Legal Sex Female 7:07 AM EMBOSSING PRESS OPERATOR Gender Identity Female 07/02/2020 2:31 PM EMBOSSING PRESS OPERATOR Sexual Orientation Not on file documented as of this encounter Functional Status * In the past year, patient experienced: Question Answer Date of Assessment Author One or more falls in the las t year 2 02/15/2025 1:32 PM CDT Indigo Napier M A How many times? 2 or more 02/15/2025 1:32 PM CDT Indigo Kimball am, MA Was the patient injured in t he fall? No 02/15/2025 1:32 PM CDT Indigo Napier M A Has trouble stepping up onto a curb 0 02/15/2025 1:32 PM CDIndigo Ryan M A Advised to use a cane or wal ker to get around safely 0 02/15/2025 1:32 PM EVAT Indigo Napier MA Often has to coker to the toilet 0 1:32 PM EVAT Indigo Napier MA Has lost some feeling in feet 0 02/15/2025 1:32 PM CDT Indigo Napier MA Steadies self on furniture w hile walking at home 0 02/15/2025 1:32 PM Indigo Sharma M Luis[place] Takes medicine that makes hi m/her feel lightheaded or more tired than usual 1 02/15/2025 1:32 PM Indigo Sharma M A Worried about falling 0 02/15/2025 1:32 PM Indigo Sharma MA Takes medicine to sleep or improve mood 1 02/15/2025 1:32 PM CDT Indigo Napier M Luisito Needs to push with hands whe n rising from a chair 1 02/15/2025 1:32 PM Indigo Sharma M Luis[place] Often feels sad or depressed 0 02/15/2025 1 :32 PM EVAT Indigo Napier MA * Question Answer Date of Assessment Author MAP (mmHg) 96 11/20/2023 4:15 AM CDT Kristin Felder RN * BP Location Answer Date of Assessment Author Left arm 05/16/2025 11:25 AM EMBOSSING PRESS OPERATOR Pam Mahoney MA * Question Answer Date of Assessment Author Is the patient being treated today because it is known or suspected that they prepared, started, or tried to end their life? No 11/20/2023 12:44 AM CDT Yair Giraldo RN * Question Answer Date of Assessment Author 1. In the past month, have y ou wished you were or that you could go to sleep and not wake up? No 11/20/2023 12:44 AM CDT Tiara Vaughan RN 2. In the past month, have y ou actually had any thoughts of killing yourself? No 11/20/2023 12:44 AM CDT Tiara Giraldo RN * Suicide Risk Level Answer Date of Assessment Author Incomplete Assessment 11/20/2023 12:44 AM CDT Tiara Miguel RN * Fall Risk Assessment Tool - MEDFRAT Question Answer Date of Assessment Author Prior Fall Event (Autopopulated from EMR) None found 11/20/2023 12:44 AM EVAT Tiara Giraldo RN History of falling in last 3 months, including since admission 1 11/20/2023 12:44 AM Tiara Holloway RN Confusion or disorientation 5 11/20/2023 12:44 AM Tiara Holloway RN Intoxicated or sedated 0 12:44 AM Tiara Holloway RN Impaired gait 1 11/20/2023 12:44 AM Tiara Holloway RN Mobility assist device used 1 11/20/2023 12:44 AM Tiara Holloway RN Altered elimination 0 11/20/2023 1 2:44 AM Tiara Holloway RN Fall risk score: (1-2 low risk), (3-4 moderate risk), (5 or more high risk) 8 11/20/2023 12:44 AM Tiara Holloway RN Interventions HIGH RISK patient/family education 11/20/2023 12:44 AM Tiara Holloway RN * Question Answer Date of Assessment Author BP Method Manual 05/02/2024 11:00 AM CDT Stephen Jeffery MD * BP Location Answer Date of Assessment Author Left arm 05/16/2025 11:25 AM Pam Mccarthy MA * Question Answer Date of Assessment Author BP Method Manual 05/02/2024 11:00 AM CDT Stephen Jeffery MD documented as of this encounter Mental Status * Question Answer Entry Date Author Level of Consciousness Alert;Awake 3:10 AM CDT Kristin Felder RN Orientation Oriented X4 (person, place, time, situation) 11/20/2023 3:10 AM Kristin Toledo RN Neuro (WDL) X 11/20/2023 3:10 AM Kristin Toledo RN documented in this encounter Plan of Treatment Not on file documented as of this encounter Goals Goal Patient Goal Type Associated Problems Recent Progress Patient-Stated? Author BH-Pain Behavioral Health On track( 021 1:17 PM EMBOSSING PRESS OPERATOR) Tracy Ricardo RN Note: Patient will establish a comfort-function goal and identify the pain level that will allow the patient to perform desired activities and achieve an acceptable quality of life. documented as of this encounter Visit Diagnoses Not on filedocumented in this encounter Admitting Diagnoses Diagnosis Personal history of colonic polyps Encounter for screening colonoscopy documented in this encounter Care Teams Derrick Boat Captain Relationship Specialty Start Date End Date Stephen Jeffery MD [address] [place] [address] PCP - General Family Medicine 02/19/23 [place] [id number] [address] Surgeon Orthopedic Surgery 08/30/19 Tati Child MD [address] [facility] [address] JACOBSON [address] [place], [place] [address], [place] [address] Consulting Physician Obstetrics and Gynecology 09/12/24 documented as of this encounter
--- OUTSIDE RECORDS SUMMARY | 2025-05-19 16:10 | XMS_ITS | Encounter Summary ---
Author Organization [facility] es Address [address] [place] [address] Phone Care Team Providers Care Operation Specialist Name Role Phone Wallace Lawson Primary Care Provider [phone] Dmitry Duffy MD Unavailable [phone] Stephen Jeffery MD Primary Care Provider [phone] Tati Child MD Unavailable [phone] Encounter Details Date Type Department Care Team (Late st Contact Info) Description 08/30/2019 Telephone [facility] [address] [place] [address] Turner Garcia RN Social History Tobacco Use Types Packs/Day Years Used Date Smoking Tobacco: Every Day Cigarettes Alcohol Use Standard Drinks/Week Comments No 0 (1 standard drink = 0.6 oz pur e alcohol) PHQ-2 Answer Date Recorded PHQ-2 Score 4 08/10/2019 Comments No Sex and Gender Information Value Date Recorded Sex Assigned at Not on file Legal Sex Female 7:07 AM PRINT INSPECTOR Gender Identity Female 07/02/2020 2:31 PM PRINT INSPECTOR Sexual Orientation Not on file documented as of this encounter Functional Status * [place] Fall Risk Question Answer Date of Assessment Author History of Falling 25 08/30/2019 8:30 AM PRINT INSPECTOR Tresa Dorsey RN Secondary Diagnosis 15 08/30/2019 8:30 AM CS Tresa Lindo RN Ambulatory Aids 0 08/30/2019 8:30 AM Tresa Johnson RN Intravenous Therapy/Heparin/Saline Lock 20 08/30/2019 8:30 AM Tresa Almonte, MABEL Gait/Transferring 0 08/30/2019 8:30 AM Tresa Almonte, MABEL Mental Status 0 08/30/2019 8:30 AM Tresa Pabon els, RN * Chris Scale Question Answer Date of Assessment Author Sensory Perceptions 4 08/30/2019 8:30 AM CS T Tresa Dorsey, RN Moisture 4 08/30/2019 8:30 AM Tresa Lee RN Activity 3 08/30/2019 8:30 AM Tresa Lee RN Mobility 3 08/30/2019 8:30 AM Tresa Lee RN Nutrition 3 08/30/2019 8:30 AM Tresa Lee RN Friction and Shear 3 08/30/2019 8:30 AM Tresa Almonte RN Chris Scale Score 20 08/30/2019 8:30 AM Tresa Almonte RN * Question Answer Date of Assessment Author BP Location Left arm 08/30/2019 7:35 AM Elizabeth Germain BP Method Automatic 08/30/2019 7:35 AM Elizabeth Germain * Fall Risk Interventions Question Answer Date of Assessment Author All Low Fall Interventions Applied Yes 08/30/2019 8:30 AM Tresa Almonte RN All Moderate Fall Interventi ons Applied Yes 08/30/2019 8:30 AM Tresa Almonte RN All High Fall Risk Interventions Applied Yes 08/30/2019 8:30 AM Taco Almonte RN * B.M.A.T. - Bedside Mobility Assessment Tool for Nurses Question Answer Date of Assessment Author Is patient able to participate in the BMAT? Yes 08/30/2019 6:37 AM Clary Hanson, MABEL BMAT Level Level 3 - Yellow 08/30/2019 6:37 AM Conchis Garcia, MABEL Level 3 Equipment Use assistive device such as cane/walker 08/30/2019 6:37 AM Conchis Hanson RN * Pressure Injury Prevention Question Answer Date of Assessment Author Pressure Ulcer Prevention Interventions Keep skin clean and dry (Sensory Perception/Moistur e) 08/30/2019 8:30 AM Tresa Almonte RN * Integumentary Question Answer Date of Assessment Author Skin Color Appropriate for ethnicity 08/30/2019 8:30 AM Tresa Almonte RN Skin Condition/Temp Warm;Dry 08/30/2019 8:30 AM Tresa Vogel RN Skin Integrity Surgical incision 08/30/2019 8:30 AM Tresa Vogel RN Integumentary (WDL) X 08/30/2019 8:30 AM Tresa Vogel RN * Wound (LDAs) Question Answer Date of Assessment Author Type of Wound (LDA) Pressure ulcer/Pressure Injury;Surgical site 08/30/2019 8:30 AM Tresa Almonte RN * Question Answer Date of Assessment Author Percent Meal Eaten (%) 75 08/30/2019 3:00 PM Elizabeth Rodney * Question Answer Date of Assessment Author BP Location Left arm 08/30/2019 7:35 AM Elizabeth Germain BP Method Automatic 08/30/2019 7:35 AM Elizabeth Germain * Question Answer Date of Assessment Author Bed In Lowest Position Yes 08/30/2019 8:30 AM Tresa Almonte RN Bed Wheels Locked Yes 08/30/2019 8:30 AM Tresa Almonte RN * Fall Risk Interventions Question Answer Date of Assessment Author All Low Fall Interventions Applied Yes 08/30/2019 8:30 AM Tresa Almonte RN All Moderate Fall Interventi ons Applied Yes 08/30/2019 8:30 AM Tresa Almonte RN All High Fall Risk Interventions Applied Yes 08/30/2019 8:30 AM Taco Almonte RN * Nutrition Question Answer Date of Assessment Author Feeding Level of Assistance Able to feed self 08/30/2019 7:30 AM Tresa Almonte RN Appetite Poor 08/30/2019 7:30 AM PRINT INSPECTOR Tresa Reddy RN documented as of this encounter Mental Status * Question Answer Entry Date Author Level of Consciousness Alert;Awake 0 8:30 AM PRINT INSPECTOR Tresa Dorsey RN Orientation Oriented to person;Oriented to place;Oriented to time 08/30/2019 8:30 AM Tresa Almonte RN Neuro (WDL) X 08/30/2019 8:30 AM PRINT INSPECTOR Tresa Dorsey RN documented in this encounter Plan of Treatment Not on file documented as of this encounter Visit Diagnoses Not on filedocumented in this encounter Additional Health Concerns Infection Onset Date Last Indicated Resolved Time COVID: Suspected 06/13/2021 06/13/2021 06/13/2021 7:32 PM PRINT INSPECTOR documented as of this encounter Care Teams Operation Specialist Relationship Specialty Start Date End Date Wallace Lawson PA [address] [place] [address] PCP - General 01/21/17 02/18/23 Stephen Jeffery MD [address] [facility] [place] [address] PCP - General Family Medicine 02/19/23 [place] [id number] [address] Surgeon Orthopedic Surgery 08/30/19 Tati Child MD [address] [place] [address] DR JACOBSON [address] [place] [address] Consulting Physician Obstetrics and Gynecology 09/12/24 documented as of this encounter
[2025-05-19 16:14] VITALS: BP 147/75; PULSE 70; RESP 16; TEMP 36.5; O2SAT 98
--- NOTE | 2025-05-19 16:34 | ED.URI ---
HPI - URI/Sore Throat General Chief Complaint: Upper Respiratory Infection Stated Complaint: Fatigue/Fever/Shortness of Breath Time Seen by Provider: 05/19/25 16:30 Source: patient Mode of arrival: ambulatory Limitations: no limitations History of Present Illness HPI Narrative: Leeann is a 59 year old female patient presenting to the clinic today with c/o feeling fever, fatigue, and shortness of breath x1 month. Has been seen by her PCP and was ordered azithromycin and medrol dose pack. Was able to belt picker the z-pack and finish that but could not afford the medrol dose pack. Productive cough with yellow phlegm. Related Data Home Medications ?Medication ?Instructions ?Recorded ?Confirmed ?Last Taken ?Type carbamazepine 200 mg tablet 200 mg PO DIRECTED 02/06/20 09/19/24 Unknown History clonazepam 1 mg tablet 1 mg PO DIRECTED 02/06/20 09/19/24 Unknown History desvenlafaxine succinate 50 mg 50 mg PO DAILY 02/06/20 09/19/24 Unknown History tablet,extended release 24 hr furosemide 20 mg tablet 20 mg PO DAILY 02/06/20 09/19/24 Unknown History levothyroxine 175 mcg tablet 175 mcg PO DAILY 02/06/20 09/19/24 Unknown History lisinopril 20 mg tablet 20 mg PO DAILY 02/06/20 09/19/24 Unknown History naproxen 500 mg tablet 500 mg PO BID 02/06/20 05/30/21 Unknown History hydrocodone 10 mg-acetaminophen See Rx Instructions .Route 05/30/21 09/19/24 Unknown History 325 mg tablet .COMPLEX PRN Pain albuterol sulfate 90 mcg/actuation inhalation 09/19/24 Unknown History aerosol inhaler amlodipine 5 mg tablet mg 09/19/24 Unknown History atorvastatin 40 mg tablet mg 09/19/24 Unknown History carisoprodol 350 mg tablet mg 09/19/24 Unknown History dicyclomine 10 mg capsule mg 09/19/24 Unknown History fluticasone fur. 100 mcg-umeclid inhalation 09/19/24 Unknown History 62.5 mcg-vilant 25 mcg inhalat.powder (Trelegy Ellipta) ibuprofen 800 mg tablet mg 09/19/24 Unknown History mirtazapine 15 mg tablet mg 09/19/24 Unknown History ondansetron HCl 8 mg tablet mg 09/19/24 Unknown History propranolol 20 mg tablet mg 09/19/24 Unknown History azithromycin 250 mg tablet mg 05/19/25 Unknown History levothyroxine 200 mcg tablet mcg 05/19/25 Unknown History methylprednisolone 4 mg tablets in mg 05/19/25 Unknown History a dose pack potassium chloride 20 mEq meq PO 05/19/25 Unknown History tablet,extended release(part/cryst) (Klor-Con M) Allergies Allergy/AdvReac Type Severity Reaction Status Date / Time aspirin Allergy Intermediate bleeding Verified 05/19/25 16:21 meperidine (From Demerol) Allergy Unknown Verified 05/19/25 16:21 morphine Allergy Unknown Verified 05/19/25 16:21 Penicillins Allergy Unknown Verified 05/19/25 16:21 propoxyphene Allergy Unknown Verified 05/19/25 16:21 Sulfa (Sulfonamide Allergy Unknown Verified 05/19/25 16:21 Antibiotics) sulfamethoxazole (From Allergy Unknown Verified 05/19/25 16:21 Septra) Tetracyclines Allergy Unknown Verified 05/19/25 16:21 trimethoprim (From Septra) Allergy Unknown Verified 05/19/25 16:21 Review of Systems Review of Systems: Pertinent positives per HPI. Patient denies any fever, chills, rash, headache, visual changes, dizziness, cough, shortness of breath, chest pain, palpitations, nausea, vomiting, diarrhea, constipation, abdominal pain, or any urinary issues. PMFSH Past Medical History Medical History History of breast cancer Tachycardia Depression Anxiety High cholesterol Brain tumor Seizures Bipolar disorder Hypertension COPD (chronic obstructive pulmonary disease) Surgical History Surgical History H/O brain surgery remove tumor Previous back surgery Social History Social History Tobacco type: cigarettes Living arrangements: with family Gender identity (if verbalized by the patient): Female Comments At the time of my signature, I reviewed and agree with the nursing past medical, surgical, social, and family history. There is no relevant family history pertinent to the patient complaint. Exam Narrative: General: Well-developed, well nourished, in no apparent distress Head: Normocephalic, atraumatic Eyes: Pupils equally round and reactive to light bilaterally, EOM intact, sclera and conjunctive clear, no discharge, lids normal Ears: TMs intact and clear, ear canals clear, no drainage, grossly hearing normal. Nose: Nares patent, no discharge, no inflammation, no sinus tenderness. Mouth: Oral pharynx without lesions or masses, good dentition, MMM. Neck: Supple, trachea midline, no enlargement of anterior or posterior cervical nodes, no thyroid masses or goiter palpable. Cardio: Regular rate and rhythm, s1 and s2 normal, no murmur appreciated. Resp: Clear to auscultation bilaterally, no rhonchi, rales, wheezing or rubs Course Course Emergency Course: Portions of this record may have been created with voice recognition software. Level of Care: Express Care Visit Vital Signs Vital signs: Vital Signs Temperature 36.5 C 05/19/25 16:14 Pulse Rate 70 05/19/25 16:14 Respiratory Rate 16 05/19/25 16:14 Blood Pressure 147/75 H 05/19/25 16:14 Pulse Oximetry 98 05/19/25 16:14 Oxygen Delivery Room Air 05/19/25 16:14 Temperature 36.5 C 05/19/25 16:14 Pulse Rate 70 05/19/25 16:14 Respiratory Rate 16 05/19/25 16:14 Blood Pressure 147/75 H 05/19/25 16:14 Pulse Oximetry 98 05/19/25 16:14 Oxygen Delivery Room Air 05/19/25 16:14 Vital signs reviewed MDM - URI/Sore Throat MDM Narrative Medical decision making narrative: At the time of visit patient is resting comfortably on the exam table. Patient appears to be nontoxic. C/o feeling fever, fatigue, and shortness of breath x1 month. Has been seen by her PCP and was ordered azithromycin and medrol dose pack. Was able to belt picker the z-pack and finish that but could not afford the medrol dose pack. Productive cough with yellow phlegm. DuoNeb, chest x-ray, and Solu-Medrol 125 mg IM ordered. Diagnostics: Chest x-ray was negative for any acute cardiopulmonary process. Medications: Duo neb HHN tx given, solu-medrol 125mg IM given , tylenol 1gm po given for HARDING Plan: I suspect patient has COPD exacerbation. Prescription for prednisone and Levaquin was sent to the pharmacy. Supportive measures were discussed with the patient and they voiced understanding discharge instructions and agrees to treatment plan. Return precautions reviewed Differential Diagnosis Differential diagnosis: Likely upper respiratory infection, otitis media, sinusitis, viral infection, bronchitis, influenza, pharyngitis and other ( COVID) Imaging Data Radiologist's impression: ITS Impressions Chest X-Ray 05/19/25 17:32 Impression: No acute cardiopulmonary abnormality. Discharge Plan Discharge Clinical Impression: Acute exacerbation of chronic obstructive pulmonary disease Patient Disposition: Home Condition: Stable Instructions: Antibiotic Form, COPD (Chronic Obstructive Pulmonary Disease) (ED) Additional Instructions: Chest x-ray is negative for any acute cardiopulmonary process. DuoNeb treatment and Solu-Medrol 125mg IM was given in the clinic today Take prescription medications only as prescribed-prednisone and levaquin Increase fluids and stay well hydrated May take Tylenol or motrin as directed on bottle for pain/fever Continue current medications as prescribed Go to the ED if you develop a worsening in your condition- high fever not controlled by Tylenol or Motrin, dehydration, weakness, lethargy, shortness of breath, or chest pain. Follow up with your PCP in 3-5 days if symptoms persist. Patient Language: Yoruba Prescriptions: New levofloxacin 500 mg tablet 500 mg PO DAILY 7 Days Qty: 7 0RF prednisone 20 mg tablet 40 mg PO DAILY 5 Days Qty: 10 0RF No Action levothyroxine 175 mcg tablet 175 mcg PO DAILY lisinopril 20 mg tablet 20 mg PO DAILY clonazepam 1 mg tablet 1 mg PO DIRECTED carbamazepine 200 mg tablet 200 mg PO DIRECTED furosemide 20 mg tablet 20 mg PO DAILY naproxen 500 mg tablet 500 mg PO BID desvenlafaxine succinate 50 mg tablet extended release 24 hr 50 mg PO DAILY hydrocodone-acetaminophen 10-325 mg tablet See Rx Instructions .ROUTE .COMPLEX PRN (Reason: Pain) Rx Instructions: as prescribed albuterol sulfate 2.5 mg /3 mL (0.083 %) solution for nebulization 2.5 mg inhalation Q4-6H PRN (Reason: shortness of breath or wheezing) Qty: 90 0RF carisoprodol 350 mg tablet atorvastatin 40 mg tablet ibuprofen 800 mg tablet ondansetron HCl 8 mg tablet amlodipine 5 mg tablet mirtazapine 15 mg tablet albuterol sulfate 90 mcg/actuation HFA aerosol inhaler INHALATION propranolol 20 mg tablet dicyclomine 10 mg capsule Trelegy Ellipta 100-62.5-25 mcg blister with device INHALATION naloxone [Narcan] 4 mg/actuation spray,non-aerosol 1 spray intranasal Q3M Qty: 1 0RF Rx Instructions: spray 1 dose into ONE nostril; alternate nostrils w each dose until help arrives azithromycin 250 mg tablet potassium chloride [Klor-Con M20] 20 mEq tablet,ER particles/crystals PO levothyroxine 200 mcg tablet methylprednisolone 4 mg tablets,dose pack Follow-up/Referrals: Jose D,MD Stephen [Primary Care Provider, Unknown] Time of Disposition: 17:35 Quality NIHSS Nursing Documentation ED NIHSS nursing documentation: reviewed/agree
[2025-05-19] MEDS: IPRATROPIUM 0.5 MG/ALBUTEROL SULFATE 2.5 MG (BASE) AMPUL.NEB 3 ML INHALATION (16:47)
[2025-05-19] MEDS: ACETAMINOPHEN 500 MG TABLET 1000 MG PO (17:13)
== END 2025-05-19 17:40 | disposition home or self-care (01) ==
PROVIDERS: Emergency Provider Nurse Practitioner Family; PCP Hospitalist
DX: J44.1 Chronic obstructive pulmonary disease with (acute) exacerbation (principal); I10 Essential (primary) hypertension; G40.909 Epilepsy, unspecified, not intractable, without status epilepticus; E78.00 Pure hypercholesterolemia, unspecified; F41.9 Anxiety disorder, unspecified; F31.9 Bipolar disorder, unspecified; Z85.3 Personal history of malignant neoplasm of breast; Z87.891 Personal history of nicotine dependence
CPT/HCPCS: 71046; 94640; 96372; 99213; A9270; G0463; J2919